=== PATIENT | male | born 1945 | race Caucasian/White ===

== ENCOUNTER → 2021-06-20 | Outpatient (CLI) | payer MEDICARE ==
[~2021-06-20] MED LIST: CATHETER FLUSH 10 ML SYR IV PRN; REGADENOSON 0.4 MG/5 ML SYR (LEXISCAN) IV ONE
--- NOTE | 2021-06-20 14:51 | NUCLEAR STRESS TEST ---
REGADENOSON NUCLEAR STRESS Date of procedure: 06/20/2021. Primary care provider: Unknown Admitting physician: Homar Roberts Jr., MD. INDICATION: Persistent atrial fibrillation BASELINE ELECTROCARDIOGRAM: Atrial fibrillation with a rapid ventricular rate at 112 bpm with isolated premature ventricular complexes versus aberrancy and nonspecific ST-T wave changes. STRESS TEST PROCEDURE: This was initially intended to be a treadmill nuclear stress test but due to resting tachycardia, this was changed over to a regadenoson nuclear stress test. The patient was administered 0.4 mg of intravenous Regadenoson. The resting heart rate was 112 bpm and the peak heart rate was 142 bpm. The resting blood pressure was 197/136 mmHg and the minimum blood pressure was 171/96 mmHg. This represents a normal heart rate and a normal blood pressure response to Regadenoson with resting tachycardia and hypertension. The test was stopped due to the protocol. There was no chest discomfort during the test. The patient was in atrial fibrillation with isolated premature ventricular complexes versus aberrancy throughout the test. There were no significant stress induced electrocardiogram changes. NUCLEAR PROCEDURE: The patient was administered 10.9 mCi of intravenous technetium 99m Tetrofosmin at rest for the rest images. The patient was subsequently administered 29.5 mCi of intravenous technetium 99m Tetrofosmin at peak stress for the stress images. Following an appropriate wait after each injection, imaging was obtained. The images were subsequently processed and reformatted in the usual views. Gated imaging was obtained. The image quality was adequate but with some gastrointestinal attenuation artifact. CT attenuation correction was used as a adjunct to standard imaging. Both the corrected and uncorrected images were reviewed for interpretation. NUCLEAR RESULTS: There was normal myocardial perfusion in all segments without evidence of infarction or ischemia. There was normal left ventricular chamber size with an end-diastolic volume of 65 mL and an end-systolic volume of 16 mL. There was no evidence of transient ischemic dilatation. The TID ratio was 1.07. There was normal wall motion in all segments with a calculated ejection fraction of 75%. IMPRESSION: 1. Normal heart rate and blood pressure response to regadenoson with resting tachycardia and hypertension. 2. There was no chest discomfort or electrocardiogram changes during the test. 3. The patient was in atrial fibrillation with isolated premature ventricular complexes versus aberrancy for the duration of the test. 4. There was normal myocardial perfusion in all segments without evidence of infarction or ischemia. 5. There was normal wall motion in all segments with a calculated ejection fraction of 75%. Certain portions of this document may have been dictated utilizing voice recognition technology. Inherent to this technology, typographical and grammatical errors may exist. As much as I am diligent to identify and correct these mistakes, some errors may remain in the document. HOMAR ROBERTS JR, MD Jun 20, 2021 14:51
--- NOTE | 2021-06-20 14:55 | Diagnostic Imaging Report ---
INDICATION: Coronary artery disease. TIME OF EXAM: 2:10 p.m. COMPARISON: No prior studies are available for comparison. FINDINGS: The heart size is normal. There is a moderate left and dnyap-nt-inyopalp right pleural effusion. There is some compressive atelectasis in both bases. Mid and upper lung crawford are clear. There is no pneumothorax. Pulmonary vascularity is unremarkable. IMPRESSION: Bilateral effusions, left greater, with bibasilar subsegmental atelectasis. Dictated by: Dictated on workstation # [id number]
== END ==
LOC: CARD 10:00
PROVIDERS: ATTEND Internal Medicine Cardiovascular Disease
DX: J90 Pleural effusion, not elsewhere classified (principal); I25.10 Atherosclerotic heart disease of native coronary artery without angina pectoris; I48.19 Other persistent atrial fibrillation
CPT/HCPCS: 71046; 78452; 93017; 93306; A9502

== ENCOUNTER → 2021-06-27 | Day surgery (SDC) | payer MEDICARE ==
[~2021-06-27] VITALS: Ht 186 cm; Wt 96.0 kg
[~2021-06-27] MED LIST changes: +DILT120T3 PO; +FURO40TA4 PO; +NS IV 1000 ML 1,000 ML IV ONE; +NS IV 1000 ML 1,000 ML ONE; -REGADENOSON 0.4 MG/5 ML SYR (LEXISCAN) IV ONE; +RIVA20TA PO
[2021-06-27 09:37] VITALS: BP 165/81
== END | disposition home or self-care (01) ==
LOC: CATH 10:00
PROVIDERS: ATTEND Internal Medicine Cardiovascular Disease
DX: I48.19 Other persistent atrial fibrillation (principal); Z53.9 Procedure and treatment not carried out, unspecified reason

== ENCOUNTER → 2021-07-18 | Day surgery (SDC) | payer MEDICARE ==
[2021-07-18] VITALS (8 sets, daily range): BP systolic 106–130; BP diastolic 58–80
[~2021-07-18] VITALS: Ht 187.6 cm; Wt 96.4 kg
[~2021-07-18] MED LIST changes: +DILT240C86 PO; +proPOfol 200 MG/20 ML (DIPRIVAN) VIAL IV ONE
--- NOTE | 2021-07-18 11:52 | Cardiac Procedure Note ---
Cardiology Procedures Date of Procedure 07/18/2021 DIRECT-CURRENT CARDIOVERSION INDICATION: Other persistent atrial fibrillation. PROCEDURE: After informed consent and in the fasting state, deep sedation was provided by the anesthesia department. I subsequently performed direct-current cardioversion with synchronized, biphasic shocks in a stepwise fashion starting with 50 J and then 100 J followed by 150 J. After the first 2 shocks the patient did convert to sinus rhythm but within a short while, converted back to atrial fibrillation. On the third shock, the patient converted to sinus rhythm and seemed to maintain sinus rhythm. IMPRESSION: 1. Status post successful direct-current cardioversion with a final biphasic energy level of 150 J with conversion of atrial fibrillation to sinus rhythm. Certain portions of this document may have been dictated utilizing voice recognition technology. Inherent to this technology, typographical and grammatical errors may exist. As much as I am diligent to identify and correct these mistakes, some errors may remain in the document. JUAN ANTONIO HILL JR, MD Jul 18, 2021 11:52
--- NOTE | 2021-07-18 13:03 | Anesthesia-General Post-Op ---
MAC Patient Condition Mental Status/LOC: Same as Preop Cardiovascular: Satisfactory Nausea/Vomiting: Absent Respiratory: Satisfactory Pain: Controlled Complications: Absent Post Op Complications Complications None Follow Up Care/Instructions Patient Instructions None needed. Anesthesiology Discharge Order Discharge Order Patient is doing well, no complaints, stable vital signs, no apparent adverse anesthesia problems. No complications reported per nursing. ANTONIO GALVAN CRNA Jul 18, 2021 13:03
== END ==
LOC: CATH 10:00
PROVIDERS: ATTEND Internal Medicine Cardiovascular Disease
DX: I48.19 Other persistent atrial fibrillation (principal); E78.5 Hyperlipidemia, unspecified; I34.0 Nonrheumatic mitral (valve) insufficiency; I11.0 Hypertensive heart disease with heart failure; I50.32 Chronic diastolic (congestive) heart failure; J90 Pleural effusion, not elsewhere classified; R03.0 Elevated blood-pressure reading, without diagnosis of hypertension; E78.2 Mixed hyperlipidemia; E66.3 Overweight; Z87.891 Personal history of nicotine dependence; Z79.899 Other long term (current) drug therapy; Z83.3 Family history of diabetes mellitus; Z80.9 Family history of malignant neoplasm, unspecified
CPT/HCPCS: 92960; 93005

== ENCOUNTER 2021-08-19 16:27 | Inpatient (IN) | payer MEDICARE ==
[~2021-08-19] VITALS: Ht 185.4 cm; Wt 80.6 kg
[~2021-08-19 16:27] MED LIST changes: -CATHETER FLUSH 10 ML SYR IV PRN; -NS IV 1000 ML 1,000 ML IV ONE; -NS IV 1000 ML 1,000 ML ONE; -proPOfol 200 MG/20 ML (DIPRIVAN) VIAL IV ONE
[2021-08-19] MEDS ORDERED: LOPERAMIDE 2 MG (IMODIUM) TABLET PO PRN (17:45)
[2021-08-19] MEDS ORDERED: morphine INJ 10 MG/ML 1ML (SYR OR VIAL) IVP PRN (17:45)
[2021-08-19] MEDS ORDERED: MELATONIN 3 MG TABLET PO PRN (17:45)
[2021-08-19] MEDS ORDERED: diphenhydrAMINE 25 MG TAB (BENADRYL) PO PRN (17:45)
[2021-08-19] MEDS ORDERED: DOCUSATE SODIUM 100 MG (COLACE) CAP PO PRN (17:45)
[2021-08-19] MEDS ORDERED: ALPRAZolam 0.25 MG (XANAX) TAB PO PRN (17:45)
[2021-08-19] MEDS ORDERED: ACETAMINOPHEN 500 MG TAB (TYLENOL) PO PRN (17:45)
[2021-08-19] MEDS ORDERED: CALCIUM CARBONATE 500 MG (TUMS) TAB.CHEW PO PRN (17:45)
[2021-08-19] MEDS ORDERED: ONDANSETRON 4 MG/2 ML (SDV) Z0FRAN IVP PRN (17:45)
[2021-08-19] MEDS ORDERED: ACETAMINOPHEN 325 MG TABLET PO PRN (18:45)
[2021-08-19] MEDS ORDERED: RT-ALBUTEROL/IPRATROPIUM 3 ML (DUONEB) VIAL INH PRN (19:15)
--- NOTE | 2021-08-19 19:33 | Tele-ICU Consult ---
History of Present Illness History of Present Illness Date Seen by Provider: Aug 19, 2021 Time Seen by Provider: 19:28 Date of Admission 76 y old man presented as a direct admission for multiple complains.- pt went to ED with SOB/ stopped taking lasix. At [facility] ED he received lasix. He was found to have A fib with RVR. As per RN he has a dry gangrene and bite on the elbow. Allergies and Home Medications Allergies Coded Allergies: No Allergy Information Available (Unverified , 06/20/21) Home Medications Diltiazem HCl 240 Mg Cap.er.24h, 240 MG PO DAILY, (Reported) Furosemide 40 Mg Tablet, 40 MG PO DAILY, (Reported) Rivaroxaban 20 Mg Tablet, 20 MG PO DAILY, (Reported) Past Medical/Social/Family Hx Patient Social History Tobacco Use?: No Use of E-Cig and/or Vaping dev: No Substance use?: No Alcohol Use?: No Pt stated abuse/neglect: No Immunizations Up To Date Influenza Vaccine Up-to-Date: No; Not Current Current Status Advance Directives: No Communicates: Verbally Primary Language: [place] Preferred Spoken Language: [place] Is interpretation needed?: No Sensory deficits: Hearing impairment Implanted or Applied Medical D: None Past Medical History A fib Review of Systems Constitutional: see HPI Focused Exam Height, Weight, BMI Height: '" Weight: lbs. oz. kg; 23.44 BMI Method: Exam Exam Patient acknowledged, consented, and participated in this virtual visit which was conducted using real time audio/video Vital Signs Date Time Temp Pulse Resp B/P (MAP) Pulse Ox O2 Delivery O2 Flow Rate FiO2 08/19/21 19:10 138 96 08/19/21 18:31 138 08/19/21 18:30 96 Nasal Cannula 3.00 08/19/21 18:15 36.3 135 112/97 100 Nasal Cannula 3.00 Height & Weight Height: '" Weight: lbs. oz. kg; 23.44 BMI Method: General Appearance: No Apparent Distress Capillary Refill: Less Than 3 Seconds Assessment/Plan Assessment/Plan 1. A fib with rvr -unclear what precipitated the clinical circumstance - ro vte start with duple xof lower ext -tsh/ trop / ekg 2. sepsis -lactic acid, procal, pancultures -empiric abx -wpund care/ surgery per pcp dw bed side rn pt was visualized KATELYN MURGUIA MD Aug 19, 2021 19:33
[2021-08-19] MEDS ORDERED: VANCOMYCIN INJECTION 1,000 MG in NS (IVPB) 250 ML IV SCH (19:45)
--- NOTE | 2021-08-19 19:45 | Progress Note ---
Progress Note 76yoWM clinic patient of [facility] Dr Freed in [place] and Dr Roberts [facility] Cardiology who has a h/o CHF and AF who presents to the [place] ER with dyspnea. AF RVR dx and Dr Roberts notified of consult. ICU bed available and orders placed for AECHF and volume overload. To note PRECISION FILER HAND noted right foot with dry gangrene so EICU placed on abx to cover for sepsis from foot. [facility] ER HPI: 76-year-old male who presents to the emergency department with chief complaint of worsening shortness of breath. Patient states that he has been dealing with shortness of breath for several months. States sometime early this fall he began to have some issues with his eyes and was needing some eye surgery however they determined his heart was irregular him wanting to see his jig hand. He does see Dr. Roberts in [place] and patient states that he was diagnosed with A. fib like 20+ years ago. Patient states that he is on Eliquis for blood thinners for this. Patient states however he has been short of breath since March or May. He has seen his jig hand about 3 weeks ago and talk to him about it but he did no further evaluation. He was supposed to see his PCP today when they arrived to the office they said that his appointment had been canceled. So they came over here for further evaluation. Patient states that he also has not had an appetite for months. Patient states that he has a random cough but has not noticed any kind chronic cough with the shortness of breath. He states that he has a lot of postnasal drainage and that usually when he coughs up that happens little. Denies any fever chills nausea vomiting abdominal pain. Denies any chest pain at this time but states when he is up doing stuff that sometimes he gets more short of breath and that this causes him some chest discomfort. Patient also admits that they have been working on the bathroom at his house and so not really able to use and so has not been taking his lasix x 2 weeks. Final diagnoses: [I50.9] Acute on chronic heart failure, unspecified heart failure type (Primary) [N17.9] Acute renal failure, unspecified acute renal failure type [I48.11] Longstanding persistent atrial fibrillation [R74.8] Elevated alkaline phosphatase level [R63.4] Abnormal weight loss VLAD CHAMBERS DO Aug 19, 2021 19:45
--- NOTE | 2021-08-19 20:12 | Diagnostic Imaging Report ---
INDICATION: Pneumonia. COMPARISON: 06/20/2021. FINDINGS: The heart size is normal. There is bibasilar atelectasis and/or pneumonitis. There are small bilateral pleural effusions. There is mild venous congestion. There is no pneumothorax. The mediastinum is unremarkable. IMPRESSION: 1. Bibasilar atelectasis and/or pneumonitis and bilateral pleural effusions, left greater than right. 2. Mild central pulmonary venous congestion. Dictated by: Dictated on workstation # [id number]
[2021-08-19 20:59] LABS: BASOPHILS % (AUTO) 0 % (0-10); EOSINOPHILS % (AUTO) 0 % (0-10); HEMATOCRIT 44 % (40-54); HEMOGLOBIN 13.4 g/dL (13.3-17.7); LYMPHOCYTES # (AUTO) 0.9 10^3/uL (1.0-4.0); LYMPHOCYTES % (AUTO) 6 % (12-44); MEAN CORPUSCULAR HEMOGLOBIN 26 pg (25-34); MEAN CORPUSCULAR HGB CONC 31 g/dL (32-36); MEAN CORPUSCULAR VOLUME 85 fL (80-99); MEAN PLATELET VOLUME 9.8 fL (9.0-12.2); MONOCYTES % (AUTO) 6 % (0-12); NEUTROPHILS # (AUTO) 13.4 10^3/uL (1.8-7.8); NEUTROPHILS % (AUTO) 87 % (42-75); PLATELET COUNT 174 10^3/uL (130-400); WHITE BLOOD COUNT 15.3 10^3/uL (4.3-11.0)
[2021-08-19] MEDS ORDERED: ESMOLOL DRIP PREMIX 250 ML IV ONE (21:01)
[2021-08-19 21:13] LABS: LYMPHOCYTES % (MANUAL) 1 %; MONOCYTES % (MANUAL) 4 %; NEUTROPHILS % (MANUAL) 95 %; RBC MORPH NORMAL
[2021-08-19 21:14] LABS: ALBUMIN 2.8 GM/DL (3.2-4.5); POTASSIUM 3.4 MMOL/L (3.6-5.0)
[2021-08-19 21:15] LABS: CALCIUM 8.6 MG/DL (8.5-10.1)
[2021-08-19 21:16] LABS: TOTAL PROTEIN 6.8 GM/DL (6.4-8.2)
[2021-08-19 21:18] LABS: BILIRUBIN,TOTAL 1.9 MG/DL (0.1-1.0)
[2021-08-19 21:20] LABS: CREATININE SERUM 1.31 MG/DL (0.60-1.30)
[2021-08-19] MEDS: SENNA W/DOCUSATE (SENOKOT S) TABLET PO SCH (21:31)
[2021-08-19 21:41] LABS: BILIRUBIN,URINE NEGATIVE (NEGATIVE); CLARITY,URINE CLEAR; COLOR,URINE YELLOW; GLUCOSE, URINE (UA) NEGATIVE (NEGATIVE); KETONES,URINE NEGATIVE (NEGATIVE); LEUKOCYTE ESTERASE ,URINE NEGATIVE (NEGATIVE); NITRITE,URINE NEGATIVE (NEGATIVE); PROTEIN,URINE NEGATIVE (NEGATIVE)
[2021-08-19 21:51] LABS: BACTERIA,URINE NEGATIVE /HPF; SQUAMOUS EPITHELIAL CELL,UR 0-2 /HPF; WBC,URINE RARE /HPF
[2021-08-19 21:52] LABS: HYALINE CASTS, URINE 0-2 /LPF
[2021-08-19] MEDS: CEFEPIME INJECTION 1,000 MG in NS (IVPB) 50 ML IV SCH (21:55)
[2021-08-19] MEDS ORDERED: LACTATED RINGERS 1,000 ML IV SCH ×2 (22:00)
[2021-08-19] MEDS ORDERED: VANCOMYCIN INJECTION 1,500 MG in NS IV 500 ML 500 ML IV ONE (22:00)
[2021-08-19] MEDS ORDERED: LACTATED RINGERS 2,000 ML IV ONE (22:16)
[2021-08-19] MEDS: ESMOLOL DRIP PREMIX 250 ML IV SCH (22:25)
[2021-08-19] MEDS: HYDROcodone/APAP 5 MG/325 MG (LORTAB) TAB PO PRN (22:29)
--- NOTE | 2021-08-20 00:35 | CONSULTATION REPORT ---
DATE OF SERVICE: 08/19/2021 ATTENDING PRIMARY CARE PHYSICIAN Jolanta Ruggiero DO HISTORY OF PRESENT ILLNESS: The patient is a 76-year-old male who presented to the Emergency Department with shortness of breath; however, stated that he had stopped taking his normal Lasix. He presented to the Emergency Department in [place], [place] and was found to be in atrial fibrillation with rapid ventricular response and was admitted to [facility]. Upon examination, he was found to have necrotic first right toe as well as ischemic changes throughout the remainder of the toes 2 through 5. He does have a history of hypertension and appears to have a component of peripheral vascular disease as well. PAST MEDICAL HISTORY: Hypertension, congestive heart failure, coronary artery disease, peripheral vascular disease. PAST SURGICAL HISTORY: Unknown. ALLERGIES: NO KNOWN DRUG ALLERGIES. MEDICATIONS: Diltiazem 240 mg daily, furosemide 40 mg daily, and rivaroxaban 20 mg daily. SOCIAL HISTORY: Negative smoke, negative alcohol. FAMILY HISTORY: Noncontributory. VITAL SIGNS: Afebrile. Blood pressure 118/96, pulse 138, pulse ox 100% on 3 liters nasal cannula. REVIEW OF SYSTEMS: This is an elderly appearing male, currently in no acute distress. He is not experiencing any shortness of breath at rest. No cough or sputum production. No chest pain, palpitations, diaphoresis. No nausea or vomiting, no diarrhea or constipation. No fever, chills, no recent inadvertent weight loss. All other review of systems negative. PHYSICAL EXAMINATION: CHEST: Few scattered rales bilaterally. HEART: Regular, no murmurs. EXTREMITIES: +1/3 bilateral lower extremity edema, negative Homans sign. HEENT: No scleral icterus. NECK: No cervical lymphadenopathy. ABDOMEN: Soft, nontender, nondistended. SKIN: First along the right great toe, the skin is black and necrotic, does not appear to be viable. There also does appear to be arterial ischemic changes within digits 2 through 5 as well. LABORATORY DATA: WBC 15.3, hemoglobin 13.4, hematocrit 44, and platelets 174. ASSESSMENT AND PLAN: A 76-year-old male with exacerbation of congestive heart failure as well as atrial fibrillation and rapid ventricular response. He has been admitted to the ICU where he has been medically managed as well as with cardiac consultation. It appears that he does likely have a component of peripheral vascular disease; however, we are unsure if this is a large vessel disease versus medium or small vessel disease causing the ischemic changes of his toes. We will get pulse volume ultrasound recordings of the lower extremities to evaluate his large vessel arterial perfusion. If adequate perfusion was identified distally, he will at least need a right first toe amputation versus a transmetatarsal amputation. If further demarcation occurs within the toes 2 through 5, he may need a transmetatarsal amputation throughout all 5 digits. For now, we will start him on broad spectrum antibiotics and allow treatment of his current medical problems. Job ID: [id number] DocumentID: [id number] Dictated Date: 08/19/2021 21:08:17 Senior Licensing Manager Date: 08/19/2021 21:32:26 Dictated By: AGUSTÍN DUQUE MD
[2021-08-20] MEDS: dilTIAZem DRIP PRE-MIX 125 ML IV SCH ×2 (00:51→19:40)
[2021-08-20] MEDS: HYDROcodone/APAP 5 MG/325 MG (LORTAB) TAB PO PRN ×2 (02:27→06:18)
[2021-08-20] MEDS: CEFEPIME INJECTION 1,000 MG in NS (IVPB) 50 ML IV SCH ×4 (04:26→21:41)
[2021-08-20 04:27] LABS: BASOPHILS % (AUTO) 0 % (0-10); EOSINOPHILS # (AUTO) 0.1 10^3/uL (0.0-0.3); EOSINOPHILS % (AUTO) 1 % (0-10); HEMATOCRIT 39 % (40-54); HEMOGLOBIN 11.9 g/dL (13.3-17.7); LYMPHOCYTES # (AUTO) 1.1 10^3/uL (1.0-4.0); LYMPHOCYTES % (AUTO) 7 % (12-44); MEAN CORPUSCULAR HEMOGLOBIN 26 pg (25-34); MEAN CORPUSCULAR HGB CONC 31 g/dL (32-36); MEAN CORPUSCULAR VOLUME 86 fL (80-99); MEAN PLATELET VOLUME 10.1 fL (9.0-12.2); MONOCYTES # (AUTO) 1.1 10^3/uL (0.0-1.0); MONOCYTES % (AUTO) 7 % (0-12); NEUTROPHILS # (AUTO) 13.4 10^3/uL (1.8-7.8); NEUTROPHILS % (AUTO) 85 % (42-75); PLATELET COUNT 157 10^3/uL (130-400); WHITE BLOOD COUNT 15.8 10^3/uL (4.3-11.0)
[2021-08-20 04:49] LABS: CREATININE SERUM 1.19 MG/DL (0.60-1.30); PHOSPHORUS 3.3 MG/DL (2.3-4.7)
[2021-08-20 04:51] LABS: MAGNESIUM 1.9 MG/DL (1.6-2.4)
[2021-08-20] MEDS: MAGNESIUM 1 GM/100 ML IVPB 100 ML IV SCH (05:19)
[2021-08-20] MEDS: KCL 20 MEQ TAB (K-DUR) PO SCH (05:19)
[2021-08-20] MEDS: POTASSIUM CL 10MEQ/50ML IVPB 50 ML IV SCH ×5 (05:19→09:36)
[2021-08-20] MEDS ORDERED: LACTATED RINGERS 1,000 ML IV SCH (05:30)
[2021-08-20] MEDS ORDERED: LACTATED RINGERS 1,000 ML IV ONE (05:33)
[2021-08-20] MEDS ORDERED: D5 LR IV SOLUTION 1,000 ML IV ONE (05:33)
--- NOTE | 2021-08-20 06:57 | Diagnostic Imaging Report ---
Indication: Abnormal skin coloration, black toe, osteomyelitis, fracture. Comparison: None Findings: 2 views of the right foot demonstrate osseous destruction of the distal phalanx of the 4th digit as well as cortical irregularity in this involving the distal phalanx of the 1st digit. These findings are concerning for osteomyelitis. There is no fracture, underlying radiopaque foreign body or soft tissue gas. Impression: 1. Suspect osteomyelitis of the distal phalanx of the 1st and 4th digits. 2. Not mentioned above, questionable osteomyelitis is of the tip of the distal phalanx 5th digit. Dictated by: Dictated on workstation # [id number]
[2021-08-20] MEDS: ESMOLOL DRIP PREMIX 250 ML IV SCH ×2 (07:09→17:31)
[2021-08-20] MEDS: FUROSEMIDE 40 MG/4 ML INJ (LASIX) IVP SCH ×2 (07:20→17:30)
--- NOTE | 2021-08-20 08:16 | Consultation-Cardiology ---
HPI-Cardiology Cardiology Consultation: Date of Consultation 08/20/21 Date of Admission 08/19/2021 Attending Physician Jolanta Ruggiero DO Admitting Physician Arelis Ruggiero DO Consulting Physician JUAN ANTONIO HILL JR, MD HPI: Time Seen by a Provider: 08:12 Chief Complaint: Reason for consultation: Atrial fibrillation and heart failure. I had the pleasure of seeing Clay in the intensive care unit at [facility] in [place], [place] this morning. He has a history of persistent atrial fibrillation, chronic heart failure with preserved ejection fraction, hypertension, mixed hyperlipidemia, pulmonary hypertension, mitral regurgitation, and hyperlipidemia. I have been working with the patient to get him into sinus rhythm. He underwent a cardioversion in July 2021 but 1 week later he was back in atrial fibrillation. I have been planning to admit the patient to the hospital to initiate therapy with sotalol. For the past couple of weeks he has been having intermittent swelling of his right arm. When the swelling gets bad, his skin will be tight and his arm will ache. He denies any swelling of his left arm. He did not seek medical attention. His main complaint has been weakness, fatigue and shortness of breath. He has fallen at least a few times at home due to severe weakness. One time he fell in the shower and hit his head. Last Thursday he was trying to sit down in a chair and due to weakness he ended up falling on the floor. At that time he had twisted his right ankle. It took him approximately 2-1/2 hours to get himself up off the floor because he was so weak. He denies any syncope. He states that his dyspnea on exertion has been unchanged. Yesterday the patient noticed that his right big toe became very dark in color and painful. He was supposed to have an appointment with his primary care provider but when he went to the office for the appointment, somehow the appointment had been canceled. His primary provider suggested he go to his local emergency room for further evaluation. In the outside emergency room he was found to be in atrial fibrillation with rapid ventricular rate and also was felt to be in some degree of heart failure. His right big toe was also noted to be necrotic. He was subsequently transferred to our facility for further evaluation. He has had some mild bilateral lower extremity edema. He denies paroxysmal nocturnal dyspnea, orthopnea, palpitations, or syncope. Certain portions of this document may have been dictated utilizing voice recognition technology. Inherent to this technology, typographical and grammatical errors may exist. As much as I am diligent to identify and correct these mistakes, some errors may remain in the document. Review of Systems-Cardiology Review of Systems Other comments Review of 10 organ systems is as per the history of present illness, otherwise negative. TPM-[id number]-Sbvkca Hx Patient Social History Have you traveled recently?: No Alcohol Use?: No Pt feels they are or have been: No Past Medical History PMH As described under Assessment. Family Medical History Family Medical History: The patient does not know of any family history of premature coronary artery disease in first-degree relatives. Allergies and Home Medications Allergies Coded Allergies: No Allergy Information Available (Unverified , 06/20/21) Patient Home Medication List Home Medication List Reviewed: Yes Diltiazem HCl (Cardizem Cd) 240 Mg Cap.er.24h, 240 MG PO DAILY, (Reported) Entered as Reported by: LAURENCE MANUEL on 07/18/21 1127 Furosemide (Furosemide) 40 Mg Tablet, 40 MG PO DAILY, (Reported) Entered as Reported by: CINTHYA CAVAZOS on 06/27/21 09 Rivaroxaban (Xarelto) 20 Mg Tablet, 20 MG PO DAILY, (Reported) Entered as Reported by: CINTHYA CAVAZOS on 06/27/21943 Exam Vital Signs Vital Signs Date Time Temp Pulse Resp B/P (MAP) Pulse Ox O2 Delivery O2 Flow Rate FiO2 08/20/21 09:36 114 08/20/21 08:41 99 Nasal Cannula 3.00 08/20/21 07:45 35.9 08/20/21 07:20 100 08/20/21 06:23 106/76 08/20/21 04:00 18 Physical Exam General: Alert. No acute distress. Well nourished and appears stated age. Eye: Extraocular movements are intact. Conjunctivae are clear. There are no radha thelasma. HENT: Normocephalic. Atraumatic. Carotid pulsations 2/2 without bruits. Neck: Jugular venous pressure does not appear elevated. No thyromegaly appreciated. Respiratory: Lungs are clear to auscultation. Respirations are non-labored. Breath sounds are equal. Symmetrical chest wall expansion. Cardiovascular: Tachycardia with irregular rhythm. No murmur. No gallop. Point of maximal impulse is not appear displaced. Lower extremity pulses are present by Doppler. 1+ bilateral pretibial edema. Right arm is diffusely swollen. Gastrointestinal: Soft. Normal bowel sounds. Skin: Skin turgor is normal. There is no pallor. Right big toe is gangrenous in appearance. Musculoskeletal: No kyphosis or scoliosis appreciated. Neurologic: Alert and oriented to person, place, time. Cranial nerves 3-12 appear grossly intact. The patient has good motor tone strength in the upper and lower extremities bilaterally. Psychiatric: Cooperative. Appropriate mood & affect. Labs Laboratory Tests Test 08/19/21 20:40 08/19/21 21:10 08/20/21 03:15 08/20/21 05:29 Range/Units White Blood Count 15.3 H 15.8 H 4.3-11.0 10^3/uL Red Blood Count 5.10 4.53 4.30-5.52 10^6/uL Hemoglobin 13.4 11.9 L 13.3-17.7 g/dL Hematocrit 44 39 L 40-54 % Mean Corpuscular Volume 85 86 80-99 fL Mean Corpuscular Hemoglobin 26 26 25-34 pg Mean Corpuscular Hemoglobin Concent 31 L 31 L 32-36 g/dL Red Cell Distribution Width 14.7 H 14.8 H 10.0-14.5 % Platelet Count 174 157 130-400 10^3/uL Mean Platelet Volume 9.8 10.1 9.0-12.2 fL Immature Granulocyte % (Auto) 1 1 % Neutrophils (%) (Auto) 87 H 85 H 42-75 % Lymphocytes (%) (Auto) 6 L 7 L 12-44 % Monocytes (%) (Auto) 6 7 0-12 % Eosinophils (%) (Auto) 0 1 0-10 % Basophils (%) (Auto) 0 0 0-10 % Neutrophils # (Auto) 13.4 H 13.4 H 1.8-7.8 10^3/uL Lymphocytes # (Auto) 0.9 L 1.1 1.0-4.0 10^3/uL Monocytes # (Auto) 1.0 1.1 H 0.0-1.0 10^3/uL Eosinophils # (Auto) 0.0 0.1 0.0-0.3 10^3/uL Basophils # (Auto) 0.0 0.0 0.0-0.1 10^3/uL Immature Granulocyte # (Auto) 0.1 0.1 0.0-0.1 10^3/uL Neutrophils % (Manual) 95 % Lymphocytes % (Manual) 1 % Monocytes % (Manual) 4 % Blood Morphology Comment NORMAL Sodium Level 143 142 135-145 MMOL/L Potassium Level 3.4 L 3.0 L 3.6-5.0 MMOL/L Chloride Level 93 L 96 L 98-107 MMOL/L Carbon Dioxide Level 31 30 21-32 MMOL/L Anion Gap 19 H 16 H 5-14 MMOL/L Blood Urea Nitrogen 28 H 26 H 7-18 MG/DL Creatinine 1.31 H 1.19 0.60-1.30 MG/DL Estimat Glomerular Filtration Rate 53 60 BUN/Creatinine Ratio 21 22 Glucose Level 96 71 70-105 MG/DL Lactic Acid Level 2.30 *H 2.34 *H 1.55 0.50-2.00 MMOL/L Calcium Level 8.6 8.0 L 8.5-10.1 MG/DL Corrected Calcium 9.6 8.5-10.1 MG/DL Total Bilirubin 1.9 H 0.1-1.0 MG/DL Aspartate Amino Transf (AST/SGOT) 31 5-34 U/L Alanine Aminotransferase (ALT/SGPT) 14 0-55 U/L Alkaline Phosphatase 223 H 40-136 U/L Troponin I 0.041 H <0.028 NG/ML Total Protein 6.8 6.4-8.2 GM/DL Albumin 2.8 L 3.2-4.5 GM/DL Procalcitonin 2.19 H <0.10 NG/ML Thyroid Stimulating Hormone (TSH) 2.36 0.35-4.94 UIU/ML Urine Color YELLOW Urine Clarity CLEAR Urine pH 6.0 5-9 Urine Specific [place] 1.010 L 1.016-1.022 Urine Protein NEGATIVE NEGATIVE Urine Glucose (UA) NEGATIVE NEGATIVE Urine Ketones NEGATIVE NEGATIVE Urine Nitrite NEGATIVE NEGATIVE Urine Bilirubin NEGATIVE NEGATIVE Urine Urobilinogen 1.0 < = 1.0 MG/DL Urine Leukocyte Esterase NEGATIVE NEGATIVE Urine RBC (Auto) NEGATIVE NEGATIVE Urine RBC NONE /HPF Urine WBC RARE /HPF Urine Squamous Epithelial Cells 0-2 /HPF Urine Renal Epithelial Cells NONE /HPF Urine Crystals NONE /LPF Urine Bacteria NEGATIVE /HPF Urine Casts PRESENT /LPF Urine Hyaline Casts 0-2 H /LPF Urine Mucus NEGATIVE /LPF Urine Culture Indicated NO Phosphorus Level 3.3 2.3-4.7 MG/DL Magnesium Level 1.9 1.6-2.4 MG/DL Radiology ECHOCARDIOGRAM (08/20/2021): SUMMARY: 1. This is a technically difficult study due to poor image quality in the apical views. 2. Left ventricle: The cavity size is normal. Wall thickness is normal. Systolic function is normal. The estimated ejection fraction is 65-70%. There is flattening of the intraventricular septum consistent with right ventricular pressure and/or volume overload. Features are consistent with a pseudonormal left ventricular filling pattern, with concomitant abnormal relaxation and increased filling pressure (grade 2 diastolic dysfunction). 3. Right ventricle: The cavity size is mildly increased measuring 3.5 cm midcavi ty. Systolic function is normal. TAPSE 2.2 cm. 4. Left atrium: The atrium is moderately to severely dilated with a volume index ranging from 40-58 mL/m. 5. Right atrium: The atrium is moderately dilated with an area of 23 cm. 6. Aortic valve: There is mild aortic valve sclerosis. 7. Tricuspid valve: There is moderate regurgitation. 8. Pericardium, extracardiac: A small pericardial effusion is identified anterior to the heart. There is a moderate-sized right pleural effusion and a moderate-sized left pleural effusion. 9. Pulmonary arteries: The estimated pulmonary artery systolic pressure is 71 mmHg assuming a right atrial pressure of 5 mmHg. ELECTROCARDIOGRAM (07/24/2021): Atrial fibrillation with a ventricular rate of 93 bpm with possible old anteroseptal and inferior myocardial infarction's with nonspecific ST-T wave changes. DIRECT-CURRENT CARDIOVERSION (07/18/2021): 1. Status post successful direct-current cardioversion with a final biphasic energy level of 150 J with conversion of atrial fibrillation to sinus rhythm. 2 VIEW CHEST X-RAY (06/20/2021): 1. Bilateral effusions, left greater, with bibasilar subsegmental atelectasis. REGADENOSON NUCLEAR STRESS TEST (06/20/2021): 1. Normal heart rate and blood pressure response to regadenoson with resting tachycardia and hypertension. 2. There was no chest discomfort or electrocardiogram changes during the test. 3. The patient was in atrial fibrillation with isolated premature ventricular complexes versus aberrancy for the duration of the test. 4. There was normal myocardial perfusion in all segments without evidence of infarction or ischemia. 5. There was normal wall motion in all segments with a calculated ejection fraction of 75%. ECHOCARDIOGRAM (06/20/2021): 1. The patient was in atrial fibrillation with a rapid ventricular rate for the duration of this study. 2. The left ventricular cavity size is normal. There is mild concentric hypertrophy. Systolic function is hyperdynamic. The estimated ejection fraction is 70-75%. There are no regional wall motion abnormalities identified. The left ventricular diastolic function is indeterminate due to atrial fibrillation. 3. The left atrium is moderately to severely dilated with a volume index ragning from 42-52 mL/m. 4. The right atrium is mildly dilated with an area of 21 cm. 5. There is mild mitral regurgitation. 6. There is mild aortic valve sclerosis. 7. There is moderate-severe tricuspid regurgitation. 8. There is a large left pleural effusion. 9. The estimated pulmonary artery systolic pressure is 99 mmHg assuming a right atrial pressure of 15 mmHg. 10. The vessel is dilated. The respirophasic diameter changes are blunted (less than 50%). LABS (06/01/2021): Total cholesterol 128. HDL 35. Triglycerides 83. LDL 76. Glucose 121. Creatinine 1.01. GFR 73. Sodium 144. Potassium 3.5. Liver function tests normal. Hemoglobin 13. Platelets 338,000. TSH 2.39. ELECTROCARDIOGRAM (05/21/2021): Atrial fibrillation with a ventricular rate of 124 bpm with occasional premature ventricular complexes versus aberrancy and possible old anteroseptal myocardial infarction. ECG Impression ECG Comment Electrocardiogram obtained on 08/19/2021 shows atrial fibrillation with ventricular rate of 118 bpm with low voltage in the limb leads, poor R wave progression, and diffuse, nonspecific ST-T wave changes. QTc approximately 460 ms. Diagnosis/Problems Diagnosis/Problems (1) Acute on chronic heart failure with preserved ejection fraction (HFpEF) Assessment & Plan: He probably has some decompensation of his heart failure. He is now on intravenous Lasix twice a day which I would continue for at least the next 24-48 hours. (2) Persistent atrial fibrillation Assessment & Plan: He remains in atrial fibrillation. He may have missed 1 dose of Xarelto but otherwise states he has been compliant with this medication. He has persistent tachycardia which may be contributing to his decompensated heart failure. I am also concerned with his gangrenous toe on the right foot that this could have been an embolic event. I will place the patient on therapeutic dose of enoxaparin while we await further treatment decisions regarding his right big toe. I may also consider a transesophageal echocardiogram later today to exclude atrial thrombus. I will plan to start the patient on sotalol but if he has an atrial thrombus, we will need to hold off. (3) Deep vein thrombosis, upper right extremity Assessment & Plan: It is not entirely clear to me why the patient would have developed this condition since he has been taking Xarelto for atrial fibrillation. For the time being, I have placed the patient on enoxaparin. We will eventually need to transition him back to Xarelto prior to discharge. (4) Gangrene of toe of right foot Assessment & Plan: Given his persistent atrial fibrillation and the fact that he does not have any significant peripheral arterial disease of the right lower extremity, this raises a concern for an embolic event. General surgery is following the patient. He will likely need at least a right great toe amputation. (5) Troponin level elevated Assessment & Plan: This is most likely a type II non-ST elevation myocardial infarction due to persistent tachycardia from the atrial fibrillation and decompensated heart failure. (6) Pulmonary hypertension Assessment & Plan: He has persistently elevated pulmonary artery pressure of unclear etiology. I suspect this may be multifactorial in part due to the chronic heart failure. This will need to be followed longitudinally. (7) Primary hypertension Assessment & Plan: I will be starting the patient on sotalol for the atrial fibrillation. Although this is not an antihypertensive medication, it may have some blood pressure lowering activity. (8) Mixed hyperlipidemia Assessment & Plan: He has reported history of hyperlipidemia but has not been on statin medication. I will plan to follow this as an outpatient. (9) Mitral regurgitation Assessment & Plan: Today's echocardiogram again only shows mild mitral regurgitation. This should not be contributing to his symptoms. JUAN ANTONIO HILL JR, MD Aug 20, 2021 08:16
[2021-08-20] MEDS: D5 LR IV SOLUTION 1,000 ML IV SCH ×3 (08:18→21:45)
[2021-08-20] MEDS: SENNA W/DOCUSATE (SENOKOT S) TABLET PO SCH ×2 (08:27→21:41)
[2021-08-20] MEDS ORDERED: SOTALOL 80 MG (BETAPACE) TAB PO SCH (09:00)
[2021-08-20] MEDS: ENOXAPARIN 80 MG/0.8 ML (LOVENOX) SYR SC SCH ×2 (09:34→21:41)
--- NOTE | 2021-08-20 09:39 | Diagnostic Imaging Report ---
PROCEDURE: US Venous Lower Ext Red. TECHNIQUE: Multiple real-time grayscale images were obtained over the lower extremities in various projections, bilaterally. Additional duplex Doppler and color Doppler images were also obtained. INDICATION: Congestive failure with lower extremity swelling. FINDINGS: The femoropopliteal system bilaterally showed normal color flow, normal compressibility. Waveforms grossly unremarkable. No deep or superficial venous thrombus. There is no discrete fluid collection. There is some subcutaneous edema. IMPRESSION: Negative for DVT. Dictated by: Dictated on workstation # [id number]
--- NOTE | 2021-08-20 09:39 | Diagnostic Imaging Report ---
INDICATION: Pain and swelling right upper extremity. FINDINGS: There is an occlusive thrombus which begins in the distal subclavian vein and extends throughout the right arm to the distal radial and ulnar veins. IMPRESSION: There is long segment deep venous thrombosis throughout the right upper extremity beginning at the subclavian vein. Dictated by: Dictated on workstation # [id number]
--- NOTE | 2021-08-20 09:49 | Diagnostic Imaging Report ---
US RIGHT LOW EXT [id number] INDICATION: Discoloration of toes on right foot. Right toes are black. Congestive heart failure COMPARISON: . TECHNIQUE: Grayscale, color Doppler and spectral Doppler imaging of the right lower extremity arteries was performed. FINDINGS: Color Doppler imaging shows patency of the common femoral, superficial femoral, popliteal, posterior tibial and dorsalis pedis arteries. All of the arteries have abnormal monophasic waveforms and peak systolic velocities of less than 80 cm/s. No focally elevated peak systolic velocities. Scattered vascular calcifications are present. IMPRESSION: 1. Diffuse monophasic waveforms throughout the right lower extremity are indicative of peripheral vascular disease. No focal high-grade stenosis. Dictated by: Dictated on workstation # [id number]
--- NOTE | 2021-08-20 10:14 | Tele-ICU Progress Note ---
Subjective Date Seen by a Provider: Aug 20, 2021 Time Seen by a Provider: 10:14 Sepsis Event Evaluation Height, Weight, BMI Height: '" Weight: lbs. oz. kg; 23.44 BMI Method: Focused Exam Lactate Level 08/19/21 20:40: Lactic Acid Level 2.30*H 08/20/21 03:15: Lactic Acid Level 2.34*H 08/20/21 05:29: Lactic Acid Level 1.55 Exam Exam Patient acknowledged, consented, and participated in this virtual visit which was conducted using real time audio/video Vital Signs Date Time Temp Pulse Resp B/P (MAP) Pulse Ox O2 Delivery O2 Flow Rate FiO2 08/20/21 09:36 114 08/20/21 08:41 99 Nasal Cannula 3.00 08/20/21 07:45 35.9 08/20/21 07:20 Nasal Cannula 3.00 100 08/20/21 06:23 106/76 100 Nasal Cannula 3.00 08/20/21 05:00 126 111/69 99 Nasal Cannula 3.00 08/20/21 04:00 98 Nasal Cannula 3.00 08/20/21 04:00 114 18 101/49 100 Nasal Cannula 3.00 08/20/21 03:00 113 109/74 100 Nasal Cannula 3.00 08/20/21 02:00 120 31 112/84 95 Nasal Cannula 3.00 08/20/21 01:15 108 20 116/76 100 Nasal Cannula 3.00 08/20/21 01:00 111 08/20/21 00:00 123 12 100/58 100 Nasal Cannula 3.00 08/19/21 23:59 99 Nasal Cannula 3.00 08/19/21 23:00 115 32 93/77 100 Nasal Cannula 3.00 08/19/21 22:25 141 118/96 08/19/21 22:15 133 23 118/67 100 Nasal Cannula 3.00 08/19/21 21:17 135 9 105/80 92 Nasal Cannula 3.00 08/19/21 20:15 131 17 122/85 100 Nasal Cannula 3.00 08/19/21 20:00 98 Nasal Cannula 3.00 08/19/21 19:43 36.8 141 118/96 100 Nasal Cannula 3.00 08/19/21 19:10 138 96 08/19/21 19:00 114 08/19/21 18:31 138 08/19/21 18:30 96 Nasal Cannula 3.00 08/19/21 18:15 36.3 135 112/97 100 Nasal Cannula 3.00 I & O 08/20/21 07:00 Intake Total 2850 ml Output Total 700 ml Balance 2150 ml Height & Weight Height: '" Weight: lbs. oz. kg; 23.44 BMI Method: General Appearance: No Apparent Distress Capillary Refill: Less Than 3 Seconds Results Lab Laboratory Tests 08/19/21 20:40 08/20/21 03:15 Assessment/Plan Assessment/Plan (Tele-ICU Physician , Progress Note ) Available chart/ vitals / labs / Images reviewed Video assessment done using teleICU camera, rest of exam as per RN Discussed with RN , EXAM PER RN Events overnight : Afebrile FiO2 - I/O = Drips: Pressors: , hemodynamically stable Consultants: Hospital course: A/P A fib - rvr - off esmolol gtt - sotalol - cards follow -lovenox 80 q 12 ECHO ef 75% Right toe gangrene - sx consulted, need a right first toe amputation versus a transmetatarsal amputation a sper sx assessment -broad spectrum antibiotic JOSE - improved with hydration - will decrease IVF to 75/h , resume lasix tomorrow ? Hypoxia - on 3 l RUE DVT - verbal report ( was on xarelro at home - failed ?, need CT to adress etiology - to avoid contrast today withAKI , ? plan for tomorrow Plans in collaboration with bedside consultants and IM MDs. Discussed with RN to reach out if any questions or concerns A total of 31 minutes of critical care time was devoted to this patient today, required to treat and/or prevent further deterioration of critical care condition ( as above) . SASKIA ALMAGUER MD Aug 20, 2021 10:14
[2021-08-20] MEDS ORDERED: ASPI325T32 PO (10:32)
[2021-08-20] MEDS ORDERED: IBUP-2473 PO (10:32)
--- NOTE | 2021-08-20 12:19 | History & Physical-Hospitalist ---
HOLLEY HOLLEY MED STUDENT 08/20/21 1219: History of Present Illness HPI/Chief Complaint CC-SOB Mr. Browning is a 76yo male wx history of CHF, Afib that presented to the [place] ER with dyspnea, worsening SOB of several months, decreased appetite, and cough with nasal drainage. He was found to be in Afib. He was transported to [facility] ICU for care. He was also noticed to have dry gangrene of the R foot and was started on ABX. He has cardiology consulted for his afib and Surgery consulted due to his foot. Xray shows suspected osteomyelitits of the 1st and 4th toes of the R foot and it is suspected that he will need amputation of at least the R big toe. He is admitted with the diagnosis of A.fib and sepsis. He had echo this morning as well as US of the extremities. Was found to have DDVT of L arm. Have MARISA scheduled for later. This morning he is sitting up in bed and eating breakfast. States he is doing alright. No nausea or vomiting. No other concerns this morning. Source: patient Exam Limitations: no limitations Date Seen 08/20/21 Time Seen by a Provider: 08:30 Attending Physician Jolanta Ruggiero DO PCP Referring Physician Date of Admission Aug 19, 2021 at 18:12 Home Medications & Allergies Home Medications Reviewed patient Home Medication Reconciliation performed by pharmacy medication reconciliations communications tower technician and/or nursing. Patients Allergies have been reviewed. Allergies Allergies Coded Allergies No Allergy Information Available (Xpubqtclmk82/21/21) Past Bnihckc-Egadxq-Zjjygs Hx Patient Social History Tobacco Use?: No Use of E-Cig and/or Vaping dev: No Substance use?: No Alcohol Use?: No Pt feels they are or have been: No Current Status Advance Directives: No Communicates: Verbally Primary Language: Beninese Preferred Spoken Language: Beninese Is interpretation needed?: No Sensory deficits: Hearing impairment Implanted or Applied Medical D: None Past Medical History Atrial Fibrillation A fib Review of Systems Constitutional: No chills, No dizziness, No fever EENTM: No hearing loss, No blurred vision, No vision loss Respiratory: cough; No dyspnea on exertion, No hemoptysis, No orthopnea, No phlegm; short of breath Gastrointestinal: No abdominal pain, No constipation, No diarrhea, No dysphagia, No hematemesis, No melena, No nausea, No vomiting Genitourinary: No dysuria, No frequency, No hematuria Skin: No rash Psychiatric/Neurological: Denies Headache Physical Exam Physical Exam Vital Signs Vital Signs - First Documented 08/19/21 08/19/21 08/20/21 18:15 20:15 07:20 Temp 36.3 Pulse 135 Resp 17 B/P (MAP) 112/97 Pulse Ox 100 O2 Delivery Nasal Cannula O2 Flow Rate 3.00 FiO2 100 Capillary Refill : Less Than 3 Seconds Height, Weight, BMI Height: '" Weight: lbs. oz. kg; 23.44 BMI Method: General Appearance: No Apparent Distress, Chronically ill Eyes: Bilateral Eye Normal Inspection, Bilateral Eye PERRL, Bilateral Eye EOMI HEENT: PERRL/EOMI, Pharynx Normal, Moist Mucous Membranes Neck: Supple Respiratory: Chest Non Tender, Lungs Clear, Normal Breath Sounds, No Accessory Muscle Use, No Respiratory Distress Cardiovascular: Regular Rate, Rhythm, No Edema, No Murmur, Normal Peripheral Pulses Gastrointestinal: Normal Bowel Sounds, No Organomegaly, No Pulsatile Mass, Non Tender, Soft Rectal: Deferred Extremity: Normal Capillary Refill, Normal Inspection, Non Tender, No Calf Tenderness, No Pedal Edema, Other (R foot is bandaged) Neurologic/Psychiatric: Alert, Oriented x3, Normal Mood/Affect Skin: Normal Color, Warm/Dry Results Results/Procedures Labs Laboratory Tests 08/19/21 20:40 08/20/21 03:15 Patient resulted labs reviewed. Imaging NAME: SUDHIR BROWNING [facility] REC#: [id number] PT STATUS: ADM IN : 1945 PHYSICIAN: KATELYN MURGUIA MD ADMIT DATE: 08/19/21/ICU Signed Date of Exam:08/19/21 CHEST 1 VIEW, AP/PA ONLY INDICATION: Pneumonia. COMPARISON: 06/20/2021. FINDINGS: The heart size is normal. There is bibasilar atelectasis and/or pneumonitis. There are small bilateral pleural effusions. There is mild venous congestion. There is no pneumothorax. The mediastinum is unremarkable. IMPRESSION: 1. Bibasilar atelectasis and/or pneumonitis and bilateral pleural effusions, left greater than right. 2. Mild central pulmonary venous congestion. Dictated by: Dictated on workstation # [id number] Dict: 08/19/211956 Trans: 08/19/212029 [facility] [id number] Interpreted by: PEYTON COOL MD Electronically signed by: PEYTON COOL MD 08/19/212029 NAME: SUDHIR BROWNING [facility] REC#: [id number] PT STATUS: ADM IN : 1945 PHYSICIAN: KATELYN MURGUIA MD ADMIT DATE: 08/19/21/ICU Draft Date of Exam:08/20/21 US VENOUS UPPER EXT RT INDICATION: Pain and swelling right upper extremity. FINDINGS: There is an occlusive thrombus which begins in the distal subclavian vein and extends throughout the right arm to the distal radial and ulnar veins. IMPRESSION: There is long segment deep venous thrombosis throughout the right upper extremity beginning at the subclavian vein. Dictated on workstation # [id number] Dict: 08/20/21934 Trans: 08/20/21938 [facility] [id number] Interpreted by: CINTHYA BRAXTON MD Electronically signed by: NAME: SUDHIR BROWNING [facility] REC#: [id number] PT STATUS: ADM IN : 1945 PHYSICIAN: KATELYN MURGUIA MD ADMIT DATE: 08/19/21/ICU Draft Date of Exam:08/20/21 US VENOUS LOWER EXT RYAN PROCEDURE: US Venous Lower Ext Ryan. TECHNIQUE: Multiple real-time grayscale images were obtained over the lower extremities in various projections, bilaterally. Additional duplex Doppler and color Doppler images were also obtained. INDICATION: Congestive failure with lower extremity swelling. FINDINGS: The femoropopliteal system bilaterally showed normal color flow, normal compressibility. Waveforms grossly unremarkable. No deep or superficial venous thrombus. There is no discrete fluid collection. There is some subcutaneous edema. IMPRESSION: Negative for DVT. Dictated on workstation # [id number] Dict: 08/20/21933 Trans: 08/20/21[facility] [id number] Interpreted by: JOSUÉ RIVERA Electronically signed by: NAME: SUDHIR BROWNING [facility] REC#: [id number] PT STATUS: ADM IN : 1945 PHYSICIAN: KATELYN MURGUIA MD ADMIT DATE: 08/19/21/ICU Draft Date of Exam:08/20/21 US VENOUS LOWER EXT RYAN PROCEDURE: US Venous Lower Ext Ryan. TECHNIQUE: Multiple real-time grayscale images were obtained over the lower extremities in various projections, bilaterally. Additional duplex Doppler and color Doppler images were also obtained. INDICATION: Congestive failure with lower extremity swelling. FINDINGS: The femoropopliteal system bilaterally showed normal color flow, normal compressibility. Waveforms grossly unremarkable. No deep or superficial venous thrombus. There is no discrete fluid collection. There is some subcutaneous edema. IMPRESSION: Negative for DVT. Dictated on workstation # [id number] Dict: 08/20/2134 Trans: 08/20/2139 [id number] Interpreted by: JOSUÉ RIVERA Electronically signed by: NAME: SUDHIR BROWNING [facility] REC#: [id number] PT STATUS: ADM IN : 1945 PHYSICIAN: AGUSTÍN FORD MD ADMIT DATE: 08/19/21/ICU Signed Date of Exam:08/20/21 US RIGHT LOW EXT [id number] US RIGHT LOW EXT [id number] INDICATION: Discoloration of toes on right foot. Right toes are black. Congestive heart failure COMPARISON: . TECHNIQUE: Grayscale, color Doppler and spectral Doppler imaging of the right lower extremity arteries was performed. FINDINGS: Color Doppler imaging shows patency of the common femoral, superficial femoral, popliteal, posterior tibial and dorsalis pedis arteries. All of the arteries have abnormal monophasic waveforms and peak systolic velocities of less than 80 cm/s. No focally elevated peak systolic velocities. Scattered vascular calcifications are present. IMPRESSION: 1. Diffuse monophasic waveforms throughout the right lower extremity are indicative of peripheral vascular disease. No focal high-grade stenosis. Dictated by: Dictated on workstation # [id number] Dict: 08/20/21 0945 Trans: 08/20/21 1110 [facility] [id number] Interpreted by: LISA BRAXTON MD Electronically signed by: LISA BRAXTON MD 08/20/21 1110 Assessment/Plan Admission Diagnosis A.fib and Sepsis Admission Status: Inpatient Order (span 2 midnights) Reason for Inpatient Admission: Sepsis Assessment and Plan A.fib -Cardilogy consulted -Diltiazem being given -Has received Echo and peripheral US -MARISA likely to be done -Continue to monitor Sepsis -ABX -monitor pt closely L arm DVT -Anticoagulation -Continue to monitor Gangrene/Osteomyelitis -Surgery consulted -Continuing abx -Will likely need amputation Hypokalemia -3.0 -Continue to monitor with labs and replace as necessary Critical Care Critically Ill Patient JOLANTA RUGGIERO 08/21/21 0623: History of Present Illness HPI/Chief Complaint CC: SOB from heart failure HPI: This is a 76yoWM who has a PMH of CHF managed by Dr. Roberts who presents from [facility] with SOB. Pt was placed in the ICU with IV diuresis. Right arm DVT noted on ultrasound, B/L lower extremities negative for DVT but right foot had dry gangrene that Dr. Ford will address. He will have MARISA today and he was placed on Vancomycin and Cefepime. His potassium is 3 being supplemented and his WBC is 15. At this current time pt denies any new issues and he was placed on Lovenox therapeutic dose. Source: patient Exam Limitations: no limitations Past Gpsulie-Nfwuhx-Rvqite Hx Patient Social History Marrital Status: single Employed/Student: retired Smoking Status: Former Smoker Past Medical History Surgeries: Coronary Stent COPD High Cholesterol, Hypertension Review of Systems Constitutional: see HPI, malaise, weakness EENTM: no symptoms reported Respiratory: dyspnea on exertion, short of breath Cardiovascular: no symptoms reported Gastrointestinal: no symptoms reported Genitourinary: no symptoms reported Musculoskeletal: no symptoms reported Skin: no symptoms reported Psychiatric/Neurological: No Symptoms Reported All Other Systems Reviewed Negative Unless Noted: Yes Physical Exam Physical Exam General Appearance: No Apparent Distress, Chronically ill Eyes: Right Eye Normal Inspection, Right Eye PERRL HEENT: PERRL/EOMI, Normal ENT Inspection, Pharynx Normal, Moist Mucous Membranes Neck: Full Range of Motion, Normal Inspection, Non Tender Respiratory: Chest Non Tender, Normal Breath Sounds, No Accessory Muscle Use, No Respiratory Distress, Decreased Breath Sounds Cardiovascular: No Edema, No Gallop, No JVD, No Murmur, Normal Peripheral Pulses, Irregularly Irregular, Tachycardia Gastrointestinal: Normal Bowel Sounds, No Organomegaly, No Pulsatile Mass, Non Tender, Soft Back: Normal Inspection, No CVA Tenderness, No Vertebral Tenderness Extremity: Normal Capillary Refill, Normal Inspection, Normal Range of Motion, Non Tender, No Calf Tenderness, No Pedal Edema Neurologic/Psychiatric: Alert, Oriented x3, No Motor/Sensory Deficits, Normal Mood/Affect Skin: Normal Color, Warm/Dry Lymphatic: No Adenopathy Assessment/Plan Admission Diagnosis Assessment: Acute hypoxic respiratory failure Sepsis Atrial fibrillation with rapid ventricular response 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 I reviewed and verified all information documented by the medical student and made modifications to such information, when appropriate. I personally performed the physical exam and medical decision making. Jolanta Ruggiero, Aug 21, 2021,06:18 HOLLEY HOLLEY MED STUDENT Aug 20, 2021 12:19 JOLANTA RUGGIERO DO Aug 21, 2021 06:23
--- NOTE | 2021-08-20 13:24 | Progress Note-Pre Operative ---
Pre-Operative Progress Note H&P Reviewed The H&P was reviewed, patient examined and no changes noted. Date Seen by Provider: Aug 20, 2021 Time Seen by Provider: 13:00 Date H&P Reviewed: Aug 20, 2021 Time H&P Reviewed: 13:00 Pre-Operative Diagnosis: right foot distal ischemia AGUSTÍN DUQUE MD Aug 20, 2021 13:24
[2021-08-20] MEDS: VANCOMYCIN 1250 MG/NS 250 ML IVPB IV SCH ×2 (16:13)
[2021-08-20] MEDS ORDERED: NS IV 500 ML 500 ML ONE (16:18)
[2021-08-20] MEDS ORDERED: LIDOCAINE 2% VISCOUS 15 ML UDC PO NR (16:30)
[2021-08-20] MEDS ORDERED: proPOfol 200 MG/20 ML (DIPRIVAN) VIAL IV ONE ×2 (16:44→17:45)
--- NOTE | 2021-08-20 17:41 | Anesthesia-General Post-Op ---
MAC Patient Condition Mental Status/LOC: Same as Preop Cardiovascular: Satisfactory Nausea/Vomiting: Absent Respiratory: Satisfactory Pain: Controlled Complications: Absent Post Op Complications Complications None Follow Up Care/Instructions Patient Instructions None needed. Anesthesiology Discharge Order Discharge Order Patient is doing well, no complaints, stable vital signs, no apparent adverse anesthesia problems. JANES VIDAL DO Aug 20, 2021 17:41
[2021-08-20] MEDS: meTOproloL SUCCINATE 50 MG (TOPROL XL) TAB PO NR ×2 (18:23→18:42)
[2021-08-21] MEDS: ESMOLOL DRIP PREMIX 250 ML IV SCH ×2 (03:39→15:29)
[2021-08-21] MEDS: CEFEPIME INJECTION 1,000 MG in NS (IVPB) 50 ML IV SCH ×4 (03:39→20:48)
[2021-08-21 05:42] LABS: BASOPHILS # (AUTO) 0.1 10^3/uL (0.0-0.1); BASOPHILS % (AUTO) 0 % (0-10); EOSINOPHILS # (AUTO) 0.1 10^3/uL (0.0-0.3); EOSINOPHILS % (AUTO) 1 % (0-10); HEMATOCRIT 43 % (40-54); HEMOGLOBIN 12.8 g/dL (13.3-17.7); LYMPHOCYTES # (AUTO) 1.6 10^3/uL (1.0-4.0); LYMPHOCYTES % (AUTO) 8 % (12-44); MEAN CORPUSCULAR HEMOGLOBIN 26 pg (25-34); MEAN CORPUSCULAR HGB CONC 30 g/dL (32-36); MEAN CORPUSCULAR VOLUME 86 fL (80-99); MEAN PLATELET VOLUME 10.3 fL (9.0-12.2); MONOCYTES # (AUTO) 1.7 10^3/uL (0.0-1.0); MONOCYTES % (AUTO) 9 % (0-12); NEUTROPHILS # (AUTO) 15.6 10^3/uL (1.8-7.8); NEUTROPHILS % (AUTO) 81 % (42-75); PLATELET COUNT 172 10^3/uL (130-400); WHITE BLOOD COUNT 19.2 10^3/uL (4.3-11.0)
[2021-08-21] MEDS: POTASSIUM CL 10MEQ/50ML IVPB 50 ML IV SCH (05:51)
[2021-08-21] MEDS: KCL 20 MEQ TAB (K-DUR) PO SCH (05:51)
[2021-08-21] MEDS: MAGNESIUM 1 GM/100 ML IVPB 100 ML IV SCH (05:51)
[2021-08-21 05:53] LABS: POTASSIUM 3.7 MMOL/L (3.6-5.0)
[2021-08-21 05:54] LABS: CALCIUM 8.1 MG/DL (8.5-10.1)
[2021-08-21 05:58] LABS: PHOSPHORUS 3.6 MG/DL (2.3-4.7)
[2021-08-21 05:59] LABS: CREATININE SERUM 1.12 MG/DL (0.60-1.30)
--- NOTE | 2021-08-21 06:53 | Progress Note - Hospitalist ---
Subjective HPI/CC On Admission Date Seen by Provider: Aug 21, 2021 Time Seen by Provider: 10:00 CC: SOB from heart failure HPI: This is a 76yoWM who has a PMH of CHF managed by Dr. Roberts who presents from [facility] with SOB. Pt was placed in the ICU with IV diuresis. Right arm DVT noted on ultrasound, B/L lower extremities negative for DVT but right foot had dry gangrene that Dr. Ford will address. He will have MARISA today and he was placed on Vancomycin and Cefepime. His potassium is 3 being supplemented and his WBC is 15. At this current time pt denies any new issues and he was placed on Lovenox therapeutic dose. Subjective/Events-last exam Pt doing well I saw him before he went to surgery for his right foot gangrene WBC 19.2 Checked meds and labs Denies any other new issues Review of Systems General: Fatigue, Malaise Musculoskeletal: foot pain Focused Exam Lactate Level 08/19/21 20:40: Lactic Acid Level 2.30*H 08/20/21 03:15: Lactic Acid Level 2.34*H 08/20/21 05:29: Lactic Acid Level 1.55 Objective Exam Vital Signs Vital Signs Date Time Temp Pulse Resp B/P (MAP) Pulse Ox O2 Delivery O2 Flow Rate FiO2 08/22/21 05:00 133 80/63 96 Nasal Cannula 3.00 08/22/21 03:00 37 08/21/21 19:28 36.3 08/21/21 11:42 98 Capillary Refill : Less Than 3 Seconds General Appearance: No Apparent Distress, WD/WN, Anxious, Chronically ill, Thin Respiratory: Lungs Clear, Normal Breath Sounds Cardiovascular: Irregularly Irregular Neurologic/Psychiatric: Alert, Oriented x3 Results/Procedures Lab Laboratory Tests 08/22/21 04:15 Patient resulted labs reviewed. Assessment/Plan Assessment and Plan Assess & Plan/Chief Complaint Assessment: A.fib with RVR -Cardilogy consulted -Diltiazem being given -Has received Echo and peripheral US -MARISA likely to be done -Continue to monitor Sepsis -ABX -monitor pt closely L arm DVT -Anticoagulation -Continue to monitor Gangrene/Osteomyelitis -Surgery consulted -Continuing abx -Surgery today Hypokalemia Plan: Surgery today A. fib and congestive heart failure cardiology manages Critical Care Critically Ill Patient VLAD CHAMBERS DO Aug 21, 2021 06:53
[2021-08-21 07:04] LABS: BAND NEUTROPHILS 3 %; LYMPHOCYTES % (MANUAL) 1 %; MONOCYTES % (MANUAL) 3 %; NEUTROPHILS % (MANUAL) 93 %
[2021-08-21] MEDS: morphine INJ 4 MG/ML 1 ML (VIAL/SYRINGE) IV PRN (08:13)
[2021-08-21] MEDS: meTOproloL SUCCINATE 50 MG (TOPROL XL) TAB PO SCH ×2 (09:00→17:37)
[2021-08-21] MEDS: FUROSEMIDE 40 MG/4 ML INJ (LASIX) IVP SCH ×2 (09:35→17:37)
[2021-08-21] MEDS: SENNA W/DOCUSATE (SENOKOT S) TABLET PO SCH ×2 (09:36→21:08)
[2021-08-21] MEDS: ENOXAPARIN 80 MG/0.8 ML (LOVENOX) SYR SC SCH ×2 (09:53→20:47)
[2021-08-21] MEDS: D5 LR IV SOLUTION 1,000 ML IV SCH (11:30)
[2021-08-21] MEDS ORDERED: fentaNYL INJ 100 MCG/2 ML AMP ONE (12:24)
[2021-08-21] MEDS ORDERED: ONDANSETRON 4 MG/2 ML (SDV) Z0FRAN ONE (12:24)
[2021-08-21] MEDS ORDERED: proPOfol 200 MG/20 ML (DIPRIVAN) VIAL IV ONE (12:24)
[2021-08-21] MEDS ORDERED: LIDOCAINE PF 2% 5 ML (XYLOCAINE) VIAL ONE (12:24)
[2021-08-21] MEDS ORDERED: LACTATED RINGERS 1,000 ML IV PRN (12:45)
[2021-08-21] MEDS ORDERED: VANCOMYCIN 1000 MG/VIAL ONE (13:02)
--- NOTE | 2021-08-21 13:02 | Tele-ICU Progress Note ---
Subjective Date Seen by a Provider: Aug 21, 2021 Time Seen by a Provider: 10:12 Subjective/Events-last exam HE IS SCHEDULED FOR TRANS METATARSAL AMPUTATION TODAY. LOVENOX ON HOLD FOR SURGERY. Sepsis Event Evaluation Height, Weight, BMI Height: '" Weight: lbs. oz. kg; 23.44 BMI Method: Focused Exam Lactate Level 08/19/21 20:40: Lactic Acid Level 2.30*H 08/20/21 03:15: Lactic Acid Level 2.34*H 08/20/21 05:29: Lactic Acid Level 1.55 Exam Exam Patient acknowledged, consented, and participated in this virtual visit which was conducted using real time audio/video Vital Signs Date Time Temp Pulse Resp B/P (MAP) Pulse Ox O2 Delivery O2 Flow Rate FiO2 08/21/21 12:15 98 Nasal Cannula 2.00 08/21/21 11:42 Nasal Cannula 2.00 98 08/21/21 11:20 36.5 08/21/21 11:00 124 19 115/69 97 Nasal Cannula 2.00 08/21/21 10:00 110 99/70 100 Nasal Cannula 2.00 08/21/21 09:00 109 8 99/72 99 Nasal Cannula 2.00 08/21/21 08:00 122 29 115/43 100 Nasal Cannula 2.00 08/21/21 07:45 98 Nasal Cannula 2.00 08/21/21 07:45 36.6 08/21/21 07:00 81 08/21/21 07:00 84 32 116/82 100 Nasal Cannula 2.00 08/21/21 06:00 88 22 92/66 99 Nasal Cannula 2.00 08/21/21 05:00 117 34 96/77 100 Nasal Cannula 2.00 08/21/21 04:00 98 Nasal Cannula 2.00 08/21/21 04:00 112 28 102/66 Nasal Cannula 2.00 08/21/21 03:00 105 21 90/60 98 Nasal Cannula 2.00 08/21/21 02:00 131 18 92/68 99 Nasal Cannula 2.00 08/21/21 01:00 115 08/21/21 01:00 101 21 91/61 99 Nasal Cannula 2.00 08/21/21 00:00 105 32 115/81 89 Nasal Cannula 2.00 08/20/21 23:59 96 Nasal Cannula 2.00 08/20/21 23:00 112 28 96/64 100 Nasal Cannula 2.00 08/20/21 22:00 108 20 90/62 99 Nasal Cannula 2.00 08/20/21 21:47 Nasal Cannula 2.00 08/20/21 21:00 126 21 94/65 100 Nasal Cannula 3.00 08/20/21 20:00 36.4 08/20/21 20:00 98 Nasal Cannula 2.00 08/20/21 20:00 158 116/84 98 Nasal Cannula 3.00 08/20/21 19:00 101 08/20/21 19:00 107 108/76 100 Nasal Cannula 3.00 08/20/21 18:00 129 50 109/84 93 Nasal Cannula 3.00 08/20/21 17:00 112 93/60 100 Nasal Cannula 3.00 08/20/21 16:45 99 Nasal Cannula 3.00 08/20/21 16:09 36.7 08/20/21 16:00 92 36 114/78 98 Nasal Cannula 3.00 08/20/21 15:00 22 97/75 100 Nasal Cannula 3.00 08/20/21 14:00 87 15 94/65 100 Nasal Cannula 3.00 08/20/21 13:00 97 19 98/61 100 Nasal Cannula 3.00 08/20/21 13:00 102 I & O 08/21/21 07:00 Intake Total 600 ml Output Total 1025 ml Balance -425 ml Height & Weight Height: '" Weight: lbs. oz. kg; 23.44 BMI Method: General Appearance: No Apparent Distress, Chronically ill HEENT: PERRL/EOMI, Normal ENT Inspection, Pharynx Normal, Moist Mucous Membranes Neck: Full Range of Motion, Normal Inspection, Non Tender Respiratory: Chest Non Tender, Normal Breath Sounds, No Accessory Muscle Use, No Respiratory Distress, Decreased Breath Sounds Cardiovascular: No Edema, No Gallop, No JVD, No Murmur, Normal Peripheral Pulses, Irregularly Irregular, Tachycardia Capillary Refill: Less Than 3 Seconds Extremity: Normal Capillary Refill, Normal Inspection, Normal Range of Motion, Non Tender, No Calf Tenderness, No Pedal Edema Neurologic/Psychiatric: Alert, Oriented x3, No Motor/Sensory Deficits, Normal Mood/Affect Skin: Normal Color, Warm/Dry Lymphatic: No Adenopathy Results Lab Laboratory Tests 08/19/21 20:40 12/21/21 03:15 08/21/21 04:55 Assessment/Plan Assessment/Plan (Tele-ICU Physician , Progress Note ) Available chart/ vitals / labs / Images reviewed Video assessment done using teleICU camera, rest of exam as per RN Discussed with RN , EXAM PER RN Events overnight : Afebrile FiO2 - I/O = Drips: Pressors: , hemodynamically stable Consultants: Hospital course: A/P A fib - rvr - off esmolol gtt - sotalol - cards follow -lovenox 80 q 12 ECHO ef 75% Right toe gangrene - sx consulted, GOING FOR SURGERY TODAY. JOSE - improved with hydration - CONTINUE TO MONITOR POST SURGERY Hypoxia - on 3 l RUE DVT - verbal report. STARTED ON LOVENOX BUT NOW ON HOLD FOR SURGERY. POSSIBLE FOOT INFECTION. BROAD SPECTRUM ANTIBIOTICS PER PCP Plans in collaboration with bedside consultants and IM MDs. Discussed with RN to reach out if any questions or concerns A total of 31 minutes of critical care time was devoted to this patient today, required to treat and/or prevent further deterioration of critical care condition ( as above) . Critical Care: Critically Ill Patient Time spent with patient (mins): 25 AYANA CESPEDES MD Aug 21, 2021 13:02
[2021-08-21] MEDS ORDERED: PHENYLEPHRINE 100 MCG/ML 10 ML (ANESTHESIA) SYR ONE (13:03)
[2021-08-21] MEDS ORDERED: NS IV 500 ML 500 ML ONE (13:05)
[2021-08-21] MEDS ORDERED: LIDOCAINE/EPI 1%-1:200,000 (XYLOCAINE) 30 ML VIAL ONE (13:22)
--- NOTE | 2021-08-21 14:29 | Progress Note-Post Operative ---
Post-Operative Progess Note Surgeon (s)/Lead Applications Developer (s) Surgeon AGUSTÍN DUQUE MD Lead Applications Developer: none Pre-Operative Diagnosis right foot distal ischemia Post-Operative Diagnosis same Procedure & Operative Findings Date of Procedure 08/21/21 Procedure Performed/Findings left foot complete transmetatarsal amputation, metatarsal nerve block. Anesthesia Type general LMA with nerve block Estimated Blood Loss Estimated blood loss (mL): minimal Specimens/Packing Specimens Removed left foot TMA AGUSTÍN DUQUE MD Aug 21, 2021 14:29
[2021-08-21] MEDS ORDERED: SEVOFLURANE (ULTANE) 15 ML INHAL SOLN ONE (14:30)
[2021-08-21 14:33] VITALS: BP 93/51
[2021-08-21 14:40] VITALS: BP 60/40
[2021-08-21] MEDS ORDERED: morphine INJ 10 MG/ML 1ML (SYR OR VIAL) IVP ONE (14:45)
[2021-08-21] MEDS ORDERED: MEPERIDINE (DEMEROL) INJ 50 MG/ML IVP ONE (14:45)
[2021-08-21] MEDS ORDERED: PROMETHAZINE INJ 25 MG/ML (PHENERGAN) AMP IVP NR (14:45)
[2021-08-21] MEDS ORDERED: ONDANSETRON 4 MG/2 ML (SDV) Z0FRAN IVP PRN (14:45)
[2021-08-21 14:50] VITALS: BP 90/67
[2021-08-21 15:00] VITALS: BP 85/68
[2021-08-21 15:10] VITALS: BP 92/70
[2021-08-21] MEDS: VANCOMYCIN 1250 MG/NS 250 ML IVPB IV SCH ×2 (15:34)
--- NOTE | 2021-08-21 17:42 | Cardiology Progress Note ---
Progress Note-Cardiology Events since last exam Date Seen by Provider: Aug 21, 2021 Time Seen by Provider: 17:35 Events since last exam I am following him due to atrial fibrillation and heart failure. Earlier this afternoon he underwent a transmetatarsal amputation of the right foot. He states that he feels awful all over does not have any specific discomfort. He still has shortness of breath. He denies chest pain, palpitations, or syncope. He does have some degree of pain in the right foot. Certain portions of this document may have been dictated utilizing voice recognition technology. Inherent to this technology, typographical and grammatical errors may exist. As much as I am diligent to identify and correct these mistakes, some errors may remain in the document. Vitals Last set of Vitals Signs Vital Signs 08/21/21 08/21/21 08/21/21 08/21/21 11:42 15:10 16:00 16:30 Temp 37.0 Pulse 99 Resp 15 B/P (MAP) 104/70 Pulse Ox 95 O2 Delivery Nasal Cannula O2 Flow Rate 3.00 FiO2 98 Labs Labs Laboratory Tests 08/21/21 04:55 Exam Vital Signs Vital Signs Date Time Temp Pulse Resp B/P (MAP) Pulse Ox O2 Delivery O2 Flow Rate FiO2 08/21/21 16:30 95 Nasal Cannula 3.00 08/21/21 16:00 99 15 104/70 08/21/21 15:10 37.0 08/21/21 11:42 98 Physical Exam General: Alert. No acute distress. Eye: No xanthelasma. HENT: Normocephalic. Neck: Jugular venous pressure does not appear elevated. Respiratory: Lungs are clear to auscultation. Respirations are non-labored. Breath sounds are equal. Symmetrical chest wall expansion. Cardiovascular: Tachycardia with irregular rhythm. No murmur. No gallop. Trace bilateral pretibial edema. Gastrointestinal: Soft. Normal bowel sounds. Skin: Warm. Dry. Right foot is bandaged which is dry and intact. Neurologic: Alert and oriented to person, place, time. Cranial nerves 3-11 grossly intact. Psychiatric: Cooperative. Appropriate mood & affect. Labs Laboratory Tests Test 08/21/21 04:55 Range/Units White Blood Count 19.2 H 4.3-11.0 10^3/uL Red Blood Count 4.95 4.30-5.52 10^6/uL Hemoglobin 12.8 L 13.3-17.7 g/dL Hematocrit 43 40-54 % Mean Corpuscular Volume 86 80-99 fL Mean Corpuscular Hemoglobin 26 25-34 pg Mean Corpuscular Hemoglobin Concent 30 L 32-36 g/dL Red Cell Distribution Width 15.1 H 10.0-14.5 % Platelet Count 172 130-400 10^3/uL Mean Platelet Volume 10.3 9.0-12.2 fL Immature Granulocyte % (Auto) 1 % Neutrophils (%) (Auto) 81 H 42-75 % Lymphocytes (%) (Auto) 8 L 12-44 % Monocytes (%) (Auto) 9 0-12 % Eosinophils (%) (Auto) 1 0-10 % Basophils (%) (Auto) 0 0-10 % Neutrophils # (Auto) 15.6 H 1.8-7.8 10^3/uL Lymphocytes # (Auto) 1.6 1.0-4.0 10^3/uL Monocytes # (Auto) 1.7 H 0.0-1.0 10^3/uL Eosinophils # (Auto) 0.1 0.0-0.3 10^3/uL Basophils # (Auto) 0.1 0.0-0.1 10^3/uL Immature Granulocyte # (Auto) 0.2 H 0.0-0.1 10^3/uL Neutrophils % (Manual) 93 % Lymphocytes % (Manual) 1 % Monocytes % (Manual) 3 % Band Neutrophils 3 % Sodium Level 142 135-145 MMOL/L Potassium Level 3.7 3.6-5.0 MMOL/L Chloride Level 100 98-107 MMOL/L Carbon Dioxide Level 29 21-32 MMOL/L Anion Gap 13 5-14 MMOL/L Blood Urea Nitrogen 26 H 7-18 MG/DL Creatinine 1.12 0.60-1.30 MG/DL Estimat Glomerular Filtration Rate 64 BUN/Creatinine Ratio 23 Glucose Level 102 70-105 MG/DL Calcium Level 8.1 L 8.5-10.1 MG/DL Phosphorus Level 3.6 2.3-4.7 MG/DL Magnesium Level 2.0 1.6-2.4 MG/DL Diagnosis/Problems Diagnosis/Problems (1) Acute on chronic heart failure with preserved ejection fraction (HFpEF) Assessment & Plan: He probably has some decompensation of his heart failure. He is now on intravenous Lasix twice a day which I would continue for at least the next 24 hours. I will obtain a follow-up chest x-ray tomorrow. We need to watch his renal function closely. (2) Persistent atrial fibrillation Assessment & Plan: He remains in atrial fibrillation. He may have missed 1 dose of Xarelto but otherwise states he has been compliant with this medication. He has persistent tachycardia which may be contributing to his decompensated heart failure. I am also concerned with his gangrenous toe on the right foot could have been an embolic event. Continue therapeutic dose of enoxaparin and ultimately transition him back to Xarelto. I have started him on metoprolol succinate for rate control. I was planning to initiate therapy with sotalol but we were not able to perform a transesophageal echocardiogram since the patient could not swallow the probe. As such, he will need at least another 4 weeks of therapeutic anticoagulation before we can attempt starting sotalol and cardioversion. (3) Deep vein thrombosis, upper right extremity Assessment & Plan: It is not entirely clear to me why the patient would have developed this condition since he has been taking Xarelto for atrial fibrillation. However, he has reported poor appetite and weight loss as well as some dysphagia. He may not be absorbing Xarelto properly. (4) Gangrene of toe of right foot Assessment & Plan: Given his persistent atrial fibrillation and the fact that he does not have any significant peripheral arterial disease of the right lower extremity, this raises a concern for an embolic event. 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 (5) Troponin level elevated Assessment & Plan: This is most likely a type II non-ST elevation myocardial infarction due to persistent tachycardia from the atrial fibrillation and decompensated heart failure. (6) Pulmonary hypertension Assessment & Plan: He has persistently elevated pulmonary artery pressure of unclear etiology. I suspect this may be multifactorial in part due to the chronic heart failure. This will need to be followed longitudinally. (7) Primary hypertension Assessment & Plan: I have started him on metoprolol to help with rate control for the atrial fibrillation. His blood pressure has been better today and actually at times somewhat low. (8) Mixed hyperlipidemia Assessment & Plan: He has reported history of hyperlipidemia but has not been on statin medication. I will plan to follow this as an outpatient. (9) Mitral regurgitation Assessment & Plan: Today's echocardiogram again only shows mild mitral regurgitation. This should not be contributing to his symptoms. (10) Dysphagia Assessment & Plan: I have placed an order to ask the surgeon to evaluate his dysphagia. JUAN ANTONIO HILL JR, MD Aug 21, 2021 17:42
[2021-08-21] MEDS: dilTIAZem DRIP PRE-MIX 125 ML IV SCH (20:46)
--- NOTE | 2021-08-21 23:17 | OPERATIVE REPORT ---
DATE OF SERVICE: 08/21/2021 ADMITTING PHYSICIAN: Dr. Ruggiero. PREOPERATIVE DIAGNOSIS: Ischemic distal right foot. POSTOPERATIVE DIAGNOSIS: Ischemic distal right foot. PROCEDURE: Complete right foot transmetatarsal amputation. Metatarsal nerve block. SURGEON: Agustín Duque MD. ANESTHESIA: General laryngeal mask with local and metatarsal nerve block. ESTIMATED BLOOD LOSS: Minimal. FINDINGS: Ischemic distal right foot. DISPOSITION: The patient tolerated the procedure well. INDICATIONS: The patient is a 76-year-old male who presented to the Emergency Department with shortness of breath and reported that he has stopped taking his normal Lasix. He initially presented to the Emergency Department in [place], [place] and was found to be in atrial fibrillation with a rapid ventricular response and was admitted to the [facility] ICU. With medication, his cardiac rhythm seems to be intact. Upon examination, he was found to have necrotic right first toe as well as significant ischemic changes throughout the remainder of his toes 2 through 5. He states he has a history of hypertension; however, based on the chronic changes of both of his feet he does have peripheral arterial disease. Arterial ultrasound was performed, which showed monophasic waveform in both posterior tibial and dorsalis pedis bilaterally. DESCRIPTION OF PROCEDURE: The patient was brought to the operating room, laid supine on the table. After adequate IV pain and sedative medications and general laryngeal mask airway intubation, the right foot was prepped and draped in standard surgical fashion. A 0.5% Marcaine with epinephrine was then used to proceed with metatarsal nerve block between all interspaces. The local anesthesia was also placed around the excision site. The excision site was marked off with a marking pen creating a posterior flap. The dorsal aspect was first incised using a 10 blade and the subcutaneous tissue and extensor ligaments were dissected down using electrocautery. A periosteal elevator was then used to remove the periosteum, soft tissue and muscle attachments to all 5 distal metatarsals. In a similar fashion, a plantar surface incision was made using a 10 blade. The flexor tendons and subcutaneous tissue were then dissected using electrocautery. The muscle attachments and periosteum were then removed from all 5 distal metatarsals using the periosteal elevator. Using a medium size saw blade the transmetatarsal amputation of all 5 distal metatarsal bones was performed with visualization of good hemostasis. We then proceeded with closure of the fascia, creating the posterior flap using interrupted 0 Vicryl sutures. This was done in two layers. The skin was then closed using interrupted 0 Prolene horizontal mattress sutures. Wound was then cleaned and covered with sterile gauze followed by Kerlix, followed by Coban and a walking shoe. The patient tolerated the procedure well. He will be instructed to proceed with physical and occupational therapy as well as continued anticoagulation. His goal will be to increase arterial collateralization. Job ID: [id number] DocumentID: [id number] Dictated Date: 08/21/2021 14:46:29 Propulsion Machinery Service Engineer Date: 08/21/2021 23:16:57 Dictated By: AGUSTÍN DUQUE MD MTDD
[2021-08-22] MEDS: ESMOLOL DRIP PREMIX 250 ML IV SCH ×3 (00:37→21:14)
[2021-08-22] MEDS: HYDROcodone/APAP 7.5 MG/325 MG (LORTAB, LORCET PLUS) TABLET PO PRN ×2 (02:41→11:49)
[2021-08-22] MEDS ORDERED: TROUGH ORDER-PHARMACY XX NR (03:30)
[2021-08-22] MEDS: CEFEPIME INJECTION 1,000 MG in NS (IVPB) 50 ML IV SCH ×4 (04:01→21:14)
[2021-08-22 04:51] LABS: BASOPHILS # (AUTO) 0.1 10^3/uL (0.0-0.1); BASOPHILS % (AUTO) 0 % (0-10); EOSINOPHILS # (AUTO) 0.2 10^3/uL (0.0-0.3); EOSINOPHILS % (AUTO) 1 % (0-10); HEMATOCRIT 44 % (40-54); HEMOGLOBIN 13.1 g/dL (13.3-17.7); LYMPHOCYTES # (AUTO) 1.4 10^3/uL (1.0-4.0); LYMPHOCYTES % (AUTO) 8 % (12-44); MEAN CORPUSCULAR HEMOGLOBIN 26 pg (25-34); MEAN CORPUSCULAR HGB CONC 30 g/dL (32-36); MEAN CORPUSCULAR VOLUME 87 fL (80-99); MEAN PLATELET VOLUME 10.5 fL (9.0-12.2); MONOCYTES # (AUTO) 1.6 10^3/uL (0.0-1.0); MONOCYTES % (AUTO) 9 % (0-12); NEUTROPHILS # (AUTO) 15.3 10^3/uL (1.8-7.8); NEUTROPHILS % (AUTO) 82 % (42-75); PLATELET COUNT 178 10^3/uL (130-400); WHITE BLOOD COUNT 18.7 10^3/uL (4.3-11.0)
[2021-08-22] MEDS: D5 LR IV SOLUTION 1,000 ML IV SCH ×2 (05:06→17:50)
[2021-08-22 05:07] LABS: POTASSIUM 3.6 MMOL/L (3.6-5.0)
[2021-08-22 05:08] LABS: CALCIUM 8.2 MG/DL (8.5-10.1)
[2021-08-22 05:13] LABS: CREATININE SERUM 1.27 MG/DL (0.60-1.30); PHOSPHORUS 3.8 MG/DL (2.3-4.7)
[2021-08-22 05:15] LABS: MAGNESIUM 1.8 MG/DL (1.6-2.4)
[2021-08-22] MEDS: VANCOMYCIN 1250 MG/NS 250 ML IVPB IV SCH ×2 (05:25)
[2021-08-22] MEDS: MAGNESIUM 1 GM/100 ML IVPB 100 ML IV SCH (05:26)
[2021-08-22] MEDS: KCL 20 MEQ TAB (K-DUR) PO SCH (05:26)
[2021-08-22] MEDS: POTASSIUM CL 10MEQ/50ML IVPB 50 ML IV SCH ×3 (05:26→07:36)
--- NOTE | 2021-08-22 06:51 | Diagnostic Imaging Report ---
INDICATION: Follow-up atrial fibrillation. RVR. Chest 08/22/2021 COMPARISON: 08/19/2021 FINDINGS: There are bibasal infiltrates with small bilateral effusions left greater than right. There is cardiomegaly with pulmonary vascular congestion. There is no pneumothorax. IMPRESSION: 1. Increasing bibasal infiltrates and effusions left worse than right. 2. Pulmonary vascular congestion. Dictated by: Dictated on workstation # [id number]
[2021-08-22] MEDS: FUROSEMIDE 40 MG/4 ML INJ (LASIX) IVP SCH ×2 (07:31→17:06)
[2021-08-22] MEDS: ENOXAPARIN 80 MG/0.8 ML (LOVENOX) SYR SC SCH ×2 (07:53→21:14)
[2021-08-22] MEDS: SENNA W/DOCUSATE (SENOKOT S) TABLET PO SCH ×2 (08:14→21:14)
[2021-08-22] MEDS: meTOproloL SUCCINATE 50 MG (TOPROL XL) TAB PO SCH (08:14)
[2021-08-22] MEDS ORDERED: DIGOXIN 0.25 MG/ML (LANOXIN) 2 ML AMP IV NR (09:14)
--- NOTE | 2021-08-22 10:14 | Anesthesia-General Post-Op ---
General Patient Condition Mental Status/LOC: Same as Preop Cardiovascular: Satisfactory Nausea/Vomiting: Absent Respiratory: Satisfactory Pain: Controlled Complications: Absent Post Op Complications Complications None Follow Up Care/Instructions Patient Instructions None needed. Anesthesia/Patient Condition Patient Condition Patient is doing well, no complaints, stable vital signs, no apparent adverse anesthesia problems. No complications reported per nursing. CHLOE ESPINOZA CRNA Aug 22, 2021 10:14
--- NOTE | 2021-08-22 10:34 | Physical Therapy Evaluation ---
PT Evaluation-General Medical Diagnosis Admission Date Aug 19, 2021 at 18:12 Medical Diagnosis: right transmetatarsal amputation Onset Date: Aug 21, 2021 Therapy Diagnosis Therapy Diagnosis: impaired mobility, strength, enduance Precautions Precautions/Isolations: Fall Prevention, Standard Precautions Weight Bear Status Right Lower Extremity: Right Weight Bearing/Tolerated Left Lower Extremity: Left Full Weight Bearing Referral Physician: Ольга Reason for Referral: Evaluation/Treatment Medical History Pertinent Medical History: Atrial Fib Reviewed History: Yes Social History Home: Single Level Current Living Status: Alone Entry Into Home: Stairs Without Railing PT Steps Into Home: 1 Patient states he has sons that live close and can help. Prior Prior Level of Function SCALE: Activities may be completed with or without assistive devices. 2-Lyncxvpxaa-xfgnpoq completes the activity by him/herself with no assistance from a helper. 5-Set-up or Clean-up Assistance-helper sets up or cleans up; patient completes activity. [place] assists only prior to or following the activity. 4-Supervision or Touching Assistance-helper provides verbal cues and/or touching/steadying and/or contact guard assistance as patient completes activity. Assistance may be provided throughout the activity or intermittently. 3-Partial/Moderate Assistance-helper does LESS THAN HALF the effort. [place] lifts, holds or supports trunk or limbs, but provides less than half the effort. 2-Substantial/Maximal Assistance-helper does MORE THAN HALF the effort. [place] lifts or holds trunk or limbs and provides more than half the effort. 1-Bnslqbisl-dmmmvg does ALL the effort. Patient does none of the effort to c omplete the activity. Or, the assistance of 2 or more helpers is required for the patient to complete the activity. If activity was not attempted, code reason: 7-Patient Refused. 9-Not Applicable-not attempted and the patient did not perform the activity before the current illness, exacerbation or injury. 10-Not Attempted due to Environmental Limitations-(lack of equipment, weather restraints, etc.). 88-Not Attempted due to Medical Conditions or Safety Concerns. Bed Mobility: 6 Transfers (B,C,W/C): 6 Gait: 6 Stairs: 6 Indoor Mobility (Ambulation): Independent Stairs: Independent PT Evaluation-Current Subjective Patient in recliner pre tx, agrees to PT, has 4/10 pain in right foot. Pt/Family Goals to be independent at home Objective Patient Orientation: Person, Place, Situation Attachments: Oxygen, IV ROM/Strength ROM Lower Extremities WNL Strength Lower Extremities LLE (hip flexion 3/5, knee flexion 4-/5, knee extension 4/5, dorsiflexion 4-/5), RLE (hip flexion 3/5, knee flexion 4-/5, knee extension 4/5) Sensory Hearing: Functional Sensation Right Lower Extremit: Intact Sensation Left Lower Extremity: Intact Transfers Sit to Stand (QC): 1 Attempted to stand twice with max assist from therapist, he could come up most of the way but not completely. Patient instructed to keep weight on heel and not on forefoot on the right side. Balance Sitting Static: Normal Sitting Dynamic: Normal Standing Static: Poor Standing Dynamic: Poor Treatment BLE exercises x20 (AP, LAQ) Assessment/Needs Patient has impaired mobility, strength, endurance. Patient in recliner post tx with nurse call, phone, tray, all needs met. His legs are pretty weak, he cannot stand using a rolling walker and assist from therapist. Rehab Potential: Fair PT Intermediate Goals Intermediate Goals PT R&D Engineer Goals Time Frame: Aug 29, 2021 Roll Left & Right (QC): 6 Sit to Lying (QC): 6 Lying-Sitting on Side/Bed(QC): 6 Sit to Stand (QC): 3 Chair/Dbx-wq-Obmoq Xfer(QC): 3 PT Plan Problem List Problem List: Activity Tolerance, Functional Strength, Safety, Balance, Gait, Transfer, Bed Mobility, ROM Treatment/Plan Treatment Plan: Continue Plan of Care Treatment Plan: Bed Mobility, Education, Functional Activity [place], Functional Strength, Gait, Safety, Therapeutic Exercise, Transfers Treatment Duration: Aug 29, 2021 Frequency: 6 times per week Estimated Hrs Per Day: .25 hour per day Patient and/or Family Agrees t: Yes Safety Risks/Education Patient Education: Reviewed Precautions, Correct Positioning, Safety Issues Teaching Recipient: Patient Teaching Methods: Demonstration, Discussion Response to Teaching: Reinforcement Needed Discharge Recommendations Plan Patient will perform bed mobility and transfer training, balance and endurance training, functional strengthening, stair training, gait training, and education, to improve functional mobility and independence at home. Therapy Discharge Recommendati: Scheduled Assistance, Home & Family, Post Acute PT Time/GCodes Time In: 1017 Time Out: 1029 Total Billed Treatment Time: 12 Total Billed Treatment 1 visit ELSIE NGUYEN PT Aug 22, 2021 10:34
--- NOTE | 2021-08-22 10:51 | Progress Note - Hospitalist ---
Subjective HPI/CC On Admission Date Seen by Provider: Aug 22, 2021 Time Seen by Provider: 11:30 CC: SOB from heart failure HPI: This is a 76yoWM who has a PMH of CHF managed by Dr. Roberts who presents from [facility][1] with SOB. Pt was placed in the ICU with IV diuresis. Right arm DVT noted on ultrasound, B/L lower extremities negative for DVT but right foot had dry gangrene that Dr. Duque will address. He will have MARISA today and he was placed on Vancomycin and Cefepime. His potassium is 3 being supplemented and his WBC is 15. At this current time pt denies any new issues and he was placed on Lovenox therapeutic dose. Subjective/Events-last exam Pt requiring ICU due to mild hypotension Appears to be very frail AF and heart failure managed S/p right metatarsal amputation due to gangrene yesterday Holding Lasix due to hypotension Review of Systems General: Fatigue, Malaise Focused Exam Lactate Level Objective Exam Vital Signs Vital Signs Date Time Temp Pulse Resp B/P (MAP) Pulse Ox O2 Delivery O2 Flow Rate FiO2 08/23/21 04:28 36.1 08/23/21 04:00 129 20 109/98 90 Nasal Cannula 2.00 08/21/21 11:42 98 Capillary Refill : Less Than 3 Seconds General Appearance: No Apparent Distress, WD/WN, Chronically ill, Thin Respiratory: Lungs Clear, Normal Breath Sounds, Decreased Breath Sounds Cardiovascular: Irregularly Irregular, Tachycardia Neurologic/Psychiatric: Alert, Oriented x3, No Motor/Sensory Deficits, Normal Mood/Affect Results/Procedures Lab Laboratory Tests 08/23/21 05:10 Patient resulted labs reviewed. Assessment/Plan Assessment and Plan Assess & Plan/Chief Complaint Assessment: A.fib with RVR -Cardilogy consulted -Diltiazem being given -Has received Echo and peripheral US -MARISA unsuccessful due to inability to progress scope consulted Dr. DUUQE for esophageal stricture -Continue to monitor Sepsis -ABX -monitor pt closely L arm DVT -Anticoagulation -Continue to monitor Gangrene/Osteomyelitis -Surgery consulted -Continuing abx -Status post right metatarsal amputation Hypokalemia Plan: Surgery today A. fib and congestive heart failure cardiology manages 08/22/2021: Supportive care Anticoagulation Appreciate general surgery Critical Care Critically Ill Patient REYESVLAD GREGG Aug 22, 2021 10:51
--- NOTE | 2021-08-22 12:32 | Tele-ICU Progress Note ---
Subjective Date Seen by a Provider: Aug 22, 2021 Time Seen by a Provider: 12:27 Subjective/Events-last exam he had tma done yesterday. c/o rt foot pain. hr is in afib but rate is about 100-110/mt one dose of dig given Review of Systems ros per rn Sepsis Event Evaluation Height, Weight, BMI Height: '" Weight: lbs. oz. kg; 23.44 BMI Method: Focused Exam Lactate Level 08/19/21 20:40: Lactic Acid Level 2.30*H 08/20/21 03:15: Lactic Acid Level 2.34*H 08/20/21 05:29: Lactic Acid Level 1.55 Exam Exam Patient acknowledged, consented, and participated in this virtual visit which was conducted using real time audio/video Vital Signs Date Time Temp Pulse Resp B/P (MAP) Pulse Ox O2 Delivery O2 Flow Rate FiO2 08/22/21 12:11 100 Nasal Cannula 3.00 08/22/21 11:30 36.2 08/22/21 10:00 106 19 108/64 96 Nasal Cannula 3.00 08/22/21 09:00 126 16 102/66 95 Nasal Cannula 3.00 08/22/21 08:50 100 Nasal Cannula 3.00 08/22/21 08:00 112 24 105/67 100 Nasal Cannula 3.00 08/22/21 07:56 35.9 08/22/21 07:00 112 22 107/61 100 Nasal Cannula 3.00 08/22/21 07:00 111 08/22/21 06:00 133 32 92/49 100 Nasal Cannula 3.00 08/22/21 05:00 133 80/63 96 Nasal Cannula 3.00 08/22/21 04:00 98 Nasal Cannula 3.00 08/22/21 04:00 121 103/81 100 Nasal Cannula 3.00 08/22/21 03:00 109 37 92/62 85 Nasal Cannula 3.00 08/22/21 02:00 112 105/67 98 Nasal Cannula 3.00 08/22/21 01:00 89 17 101/76 99 Nasal Cannula 3.00 08/22/21 00:55 101 08/22/21 00:00 94 23 86/63 98 Nasal Cannula 3.00 08/21/21 23:59 95 Nasal Cannula 3.00 08/21/21 23:00 101 20 100/70 100 Nasal Cannula 3.00 08/21/21 22:00 97 101/60 82 Nasal Cannula 3.00 08/21/21 21:02 98 Nasal Cannula 2.00 08/21/21 21:00 114 89/62 97 Nasal Cannula 3.00 08/21/21 20:00 95 9 92/70 97 Nasal Cannula 3.00 08/21/21 20:00 95 Nasal Cannula 3.00 08/21/21 19:28 36.3 08/21/21 19:00 110 97/60 99 Nasal Cannula 3.00 08/21/21 19:00 113 08/21/21 18:00 104 21 111/77 100 Nasal Cannula 3.00 08/21/21 17:00 96 27 106/70 98 Nasal Cannula 3.00 08/21/21 16:30 95 Nasal Cannula 3.00 08/21/21 16:00 99 15 104/70 96 Nasal Cannula 3.00 08/21/21 15:28 120 08/21/21 15:20 Nasal Cannula 3.00 08/21/21 15:20 Nasal Cannula 3.00 08/21/21 15:10 37.0 16 92/70 (77) 98 Nasal Cannula 3 08/21/21 15:00 14 85/68 (74) 98 Nasal Cannula 3 08/21/21 15:00 109/67 08/21/21 14:55 Nasal Cannula 3 08/21/21 14:50 15 90/67 (75) 100 OxyMask 10 08/21/21 14:40 14 60/40 (47) 99 OxyMask 10 08/21/21 14:33 OxyMask 10 08/21/21 14:33 36.1 16 93/51 (65) 100 OxyMask 10 08/21/21 13:00 113 29 98 Nasal Cannula 2.00 I & O 08/22/21 07:00 Intake Total 415 ml Output Total 1375 ml Balance -960 ml Height & Weight Height: '" Weight: lbs. oz. kg; 23.44 BMI Method: General Appearance: No Apparent Distress, WD/WN, Anxious, Chronically ill, Thin HEENT: PERRL/EOMI, Normal ENT Inspection, Pharynx Normal, Moist Mucous Membranes Neck: Full Range of Motion, Normal Inspection, Non Tender Respiratory: Lungs Clear, Normal Breath Sounds Cardiovascular: Irregularly Irregular Capillary Refill: Less Than 3 Seconds Extremity: Normal Capillary Refill, Normal Inspection, Normal Range of Motion, Non Tender, No Calf Tenderness, No Pedal Edema Neurologic/Psychiatric: Alert, Oriented x3 Skin: Normal Color, Warm/Dry Lymphatic: No Adenopathy Other comments pe per rn Results Lab Laboratory Tests 08/21/21 04:55 08/22/21 04:15 Assessment/Plan Assessment/Plan (Tele-ICU Physician , Progress Note ) Available chart/ vitals / labs / Images reviewed Video assessment done using teleICU camera, rest of exam as per RN Discussed with RN , EXAM PER RN Events overnight : Afebrile FiO2 - I/O = Drips: Pressors: , hemodynamically stable Consultants: Hospital course: A/P A fib - rvr - off esmolol gtt - sotalol - cards follow -lovenox 80 q 12 ECHO ef 75% Right toe gangrene - S/P TMA JOSE - improved with hydration - CONTINUE TO MONITOR POST SURGERY Hypoxia - on 3 l RUE DVT - verbal report. STARTED ON LOVENOX POSSIBLE FOOT INFECTION. BROAD SPECTRUM ANTIBIOTICS PER PCP Plans in collaboration with bedside consultants and IM MDs. Discussed with RN to reach out if any questions or concerns A total of 20 minutes of critical care time was devoted to this patient today, required to treat and/or prevent further deterioration of critical care cond ition ( as above) . Critical Care: Critically Ill Patient Critical Care: Critically Ill Patient Time spent with patient (mins): 20 AYANA CESPEDES MD Aug 22, 2021 12:32
--- NOTE | 2021-08-22 12:40 | Cardiology Progress Note ---
Progress Note-Cardiology Events since last exam Date Seen by Provider: Aug 22, 2021 Time Seen by Provider: 12:38 Events since last exam I am following him due to atrial fibrillation and heart failure. Today his breathing is better. However, he has having nausea and vomiting. He denies abdominal pain. He denies chest discomfort, palpitations, syncope, or ankle edema. The patient received metoprolol succinate last evening and his heart rates had improved. He was supposed to get a dose this morning but his blood pressure was a little bit soft so the nurse hold the metoprolol. eICU then gave him intravenous digoxin. Certain portions of this document may have been dictated utilizing voice recognition technology. Inherent to this technology, typographical and grammatical errors may exist. As much as I am diligent to identify and correct these mistakes, some errors may remain in the document. Vitals Last set of Vitals Signs Vital Signs 08/21/21 08/22/21 08/22/21 08/22/21 08/22/21 11:42 11:30 12:00 12:11 13:00 Temp 36.2 Pulse 99 Resp 18 B/P (MAP) 102/62 Pulse Ox 100 O2 Delivery Nasal Cannula O2 Flow Rate 3.00 FiO2 98 Labs Labs Laboratory Tests 08/22/21 04:15 Exam Vital Signs Vital Signs Date Time Temp Pulse Resp B/P (MAP) Pulse Ox O2 Delivery O2 Flow Rate FiO2 08/22/21 13:00 99 08/22/21 12:11 100 Nasal Cannula 3.00 08/22/21 12:00 18 102/62 08/22/21 11:30 36.2 08/21/21 11:42 98 Physical Exam General: Alert. No acute distress. Eye: No xanthelasma. HENT: Normocephalic. Neck: Jugular venous pressure does not appear elevated. Respiratory: Lungs are clear to auscultation. Respirations are non-labored. Breath sounds are equal. Symmetrical chest wall expansion. Cardiovascular: Normal rate. Irregular rhythm. No murmur. No gallop. No edema. R ight foot transmetatarsal amputation. Gastrointestinal: Soft. Normal bowel sounds. Skin: Warm. Dry. Neurologic: Alert and oriented to person, place, time. Cranial nerves 3-11 grossly intact. Psychiatric: Cooperative. Appropriate mood & affect. Labs Laboratory Tests Test 08/22/21 04:15 Range/Units White Blood Count 18.7 H 4.3-11.0 10^3/uL Red Blood Count 5.06 4.30-5.52 10^6/uL Hemoglobin 13.1 L 13.3-17.7 g/dL Hematocrit 44 40-54 % Mean Corpuscular Volume 87 80-99 fL Mean Corpuscular Hemoglobin 26 25-34 pg Mean Corpuscular Hemoglobin Concent 30 L 32-36 g/dL Red Cell Distribution Width 15.0 H 10.0-14.5 % Platelet Count 178 130-400 10^3/uL Mean Platelet Volume 10.5 9.0-12.2 fL Immature Granulocyte % (Auto) 1 % Neutrophils (%) (Auto) 82 H 42-75 % Lymphocytes (%) (Auto) 8 L 12-44 % Monocytes (%) (Auto) 9 0-12 % Eosinophils (%) (Auto) 1 0-10 % Basophils (%) (Auto) 0 0-10 % Neutrophils # (Auto) 15.3 H 1.8-7.8 10^3/uL Lymphocytes # (Auto) 1.4 1.0-4.0 10^3/uL Monocytes # (Auto) 1.6 H 0.0-1.0 10^3/uL Eosinophils # (Auto) 0.2 0.0-0.3 10^3/uL Basophils # (Auto) 0.1 0.0-0.1 10^3/uL Immature Granulocyte # (Auto) 0.2 H 0.0-0.1 10^3/uL Sodium Level 141 135-145 MMOL/L Potassium Level 3.6 3.6-5.0 MMOL/L Chloride Level 100 98-107 MMOL/L Carbon Dioxide Level 28 21-32 MMOL/L Anion Gap 13 5-14 MMOL/L Blood Urea Nitrogen 27 H 7-18 MG/DL Creatinine 1.27 0.60-1.30 MG/DL Estimat Glomerular Filtration Rate 55 BUN/Creatinine Ratio 21 Glucose Level 124 H 70-105 MG/DL Calcium Level 8.2 L 8.5-10.1 MG/DL Phosphorus Level 3.8 2.3-4.7 MG/DL Magnesium Level 1.8 1.6-2.4 MG/DL Vancomycin Level Trough 28.4 *H 10.0-20.0 UG/ML Diagnosis/Problems Diagnosis/Problems (1) Acute on chronic heart failure with preserved ejection fraction (HFpEF) Assessment & Plan: He probably has some decompensation of his heart failure. He is on intravenous Lasix twice a day which I would continue for at least the next 24-48 hours. Although his breathing is better today, his chest x-ray appears to possibly be worse. We need to watch his renal function closely. I will obtain another follow-up chest x-ray tomorrow. (2) Persistent atrial fibrillation Assessment & Plan: He remains in atrial fibrillation. He may have missed 1 dose of Xarelto but otherwise states he has been compliant with this medication. On the other hand, due to his poor oral intake prior to admission, he may not have been absorbing the medication well and therefore the Xarelto might not have been fully effective. He has persistent tachycardia which may be contributing to his decompensated heart failure. I recommend we continue with the oral metoprolol. He had been on diltiazem at home but had gastrointestinal side effects from this. He is currently on enoxaparin for anticoagulation. At some point, we will need to change this back over to oral anticoagulation. He will eventually need to be started on sotalol to help maintain sinus rhythm. However, in light of these acute events with questionable embolism to his right foot, he is not a good candidate to try and cardiovert at this point in time. Unfortunately, he did not tolerate a transesophageal echocardiogram earlier during this admission. (3) Troponin level elevated Assessment & Plan: This is most likely a type II non-ST elevation myocardial infarction due to persistent tachycardia from the atrial fibrillation and dec ompensated heart failure. (4) Gangrene of toe of right foot Assessment & Plan: Given his persistent atrial fibrillation and the fact that he does not have any significant peripheral arterial disease of the right lower extremity, this raises a concern for an embolic event. 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 (5) Deep vein thrombosis, upper right extremity Assessment & Plan: It is not entirely clear to me why the patient would have developed this condition since he has been taking Xarelto for atrial fibrillation tablet for the fact that he may have had poor absorption of the medication as outlined above. For the time being, I recommend he continue on subcutaneous enoxaparin. (6) Pulmonary hypertension Assessment & Plan: He has persistently elevated pulmonary artery pressure of unclear etiology. I suspect this may be multifactorial in part due to the chronic heart failure. This will need to be followed longitudinally. (7) Primary hypertension Assessment & Plan: I have started him on metoprolol to help with rate control for the atrial fibrillation. His blood pressure have been low at times and metoprolol has been held until later in the day. (8) Mixed hyperlipidemia Assessment & Plan: He has reported history of hyperlipidemia but has not been o n statin medication. I will plan to follow this as an outpatient. (9) Mitral regurgitation Assessment & Plan: Today's echocardiogram again only shows mild mitral regurgitation. This should not be contributing to his symptoms. (10) Dysphagia Assessment & Plan: I have placed an order to ask the surgeon to evaluate his dysphagia. JUAN ANTONIO HILL JR, MD Aug 22, 2021 12:40
--- NOTE | 2021-08-22 13:34 | Occupational Therapy Eval ---
OT Evaluation-General/PLF Medical Diagnosis Admission Date Aug 19, 2021 at 18:12 Medical Diagnosis: right transmetatarsal amputation Onset Date: Aug 21, 2021 Therapy Diagnosis Therapy Diagnosis: Impaired balance, endurance, strength, adls, iadls Precautions Precautions/Isolations: Fall Prevention, Standard Precautions Weight Bear Status Weight Bearing Restriction: Partial Weight Bearing Location Restriction: RT FOOT 50% WB on heel only-RLE Referral Physician: Ольга Referral Reason: Evaluation/Treatment Medical History Pertinent Medical History: Atrial Fib, Heart Failure Current History s/p R transmetatarsal amputation. Pt reports that he lives alone in a single story home. He has had increased difficulty with adls the last 4 months (due to increased weakness) and has had to have assistance from his sons who live close by. He hasn't taken a shower in over 4 months and now only performs sponge baths. His sons perform all iadls and provide transportation. He was using a cane prior to admission. Social History Home: Single Level Current Living Status: Alone Entry Into Home: Stairs Without Railing Steps Into Home: 1 ADL-Prior Level of Function SCALE: Activities may be completed with or without assistive devices. 6-Rzmuzlhhej-kftfjje completes the activity by him/herself with no assistance from a helper. 5-Set-up or Clean-up Assistance-helper sets up or cleans up; patient completes activity. Winona assists only prior to or following the activity. 4-Supervision or Touching Assistance-helper provides verbal cues and/or touching/steadying and/or contact guard assistance as patient completes activity. Assistance may be provided throughout the activity or intermittently. 3-Partial/Moderate Assistance-helper does LESS THAN HALF the effort. Winona lifts, holds or supports trunk or limbs, but provides less than half the effort. 2-Substantial/Maximal Assistance-helper does MORE THAN HALF the effort. Winona lifts or holds trunk or limbs and provides more than half the effort. 2-Zcpfaervo-ebxzch does ALL the effort. Patient does none of the effort to complete the activity. Or, the assistance of 2 or more helpers is required for the patient to complete the activity. If activity was not attempted, code reason: 7-Patient Refused. 9-Not Applicable-not attempted and the patient did not perform the activity before the current illness, exacerbation or injury. 10-Not Attempted due to Environmental Limitations-(lack of equipment, weather restraints, etc.). 88-Not Attempted due to Medical Conditions or Safety Concerns. Self Care: Needed Some Help Functional Cognition: Independent DME/Equipment: Bath Chair, Shower Drive Self: No OT Current Status Subjective Pt agreeable to evaluation. Appearance Left sitting EOB, RN notified. All needs within reach at OT departure. Mental Status/Objective Patient Orientation: Person, Place, Situation Attachments: IV, Oxygen, Telemetry Current Hand Dominance: Right Upper Extremity ROM Bilateral shoulder: impaired. R/L shoulder: ~90 degrees AROM, ~145 degrees PROM Pt reports range limited by pain in back. R arm/hand with severe edema (d/t DVT) limiting ROM in elbow/wrist/hand. ADL-Treatment Eating (QC): 5 Oral Hygiene (QC): 4 Lower Body Dressing (QC): 2 On/Off Footwear (QC): 3 Toileting Hygiene (QC): 2 Pt sitting EOB at OT arrival. Able to don/doff L sock with use of cross over method and extra time/effort secondary to impaired coordination in R hand (secondary to edema). Unable to reach L foot to don/doff offloading boot. Sit<> stand: max a with elevated bed. Pt only able to tolerate standing for short time due to LE weakness and having a difficult time maintaining 50% WB on heel only. At this time, he would require assist with standing balance and clothing management pre/post toileting. Once sitting, pt able to scoot hips towards HOB without assistance. Education OT Patient Education: Disease process, Energy conservation, Modified ADL techniques, Progress toward Goal/Update tx plan, Purpose of tx/functional activities, Reviewed precautions, Safety issues, Transfer techniques Teaching Recipient: Patient Teaching Methods: Discussion Response to Teaching: Verbalize Understanding, Reinforcement Needed OT Residential Goals Residential Goals Time Frame: Sep 05, 2021 Eating (QC): 5 Oral Hygiene (QC): 5 Toileting Hygiene (QC): 4 Shower/Bathe Self (QC): 4 Upper Body Dressing (QC): 4 Lower Body Dressing (QC): 4 On/Off Footwear (QC): 4 1=Demonstrate adherence to instructed precautions during ADL tasks. 2=Patient will verbalize/demonstrate understanding of assistive devices/modifications for ADL. 3=Patient will improve strength/tolerance for activity to enable patient to perform ADL's. OT Education/Plan Problem List/Assessment Assessment: Decreased Activ Tolerance, Decreased UE Strength, Dependent Transfers, Edema, Impaired Funct Balance, Impaired I ADL's, Impaired Self-Care Skills, Restricted Funct UE ROM Discharge Recommendations Plan/Recommendations: Continue POC Therapy Discharge Recommendati: Post Acute OT Treatment Plan/Plan of Care Treatment,Training & Education: Yes Patient would benefit from OT for education, treatment and training to promote independence in ADL's, mobility, safety and/or upper extremity function for ADL's. Plan of Care: ADL Retraining, Functional Mobility, Orthotic Fitting/Training, UE Funct Exercise/Act Treatment Duration: Sep 05, 2021 Frequency: 3 times per week Estimated Hrs Per Day: .25 hour per day Rehab Potential: Fair 3-5x/week Time/GCodes Start Time: 13:10 Stop Time: 13:23 Total Time Billed (hr/min): 13 Billed Treatment Time 1 visit Calli Kimbrough OT Aug 22, 2021 13:34
--- NOTE | 2021-08-22 14:22 | Progress Note ---
Subjective Date Seen by a Provider: Aug 22, 2021 Time Seen by a Provider: 14:00 Subjective/Events-last exam doing ok. pain controlled. glo PT. states some hx of dysphagia however not severe. Focused Exam Lactate Level 08/19/21 20:40: Lactic Acid Level 2.30*H 08/20/21 03:15: Lactic Acid Level 2.34*H 08/20/21 05:29: Lactic Acid Level 1.55 Objective Exam Vital Signs Date Time Temp Pulse Resp B/P (MAP) Pulse Ox O2 Delivery O2 Flow Rate FiO2 08/22/21 13:00 99 08/22/21 12:11 100 Nasal Cannula 3.00 08/22/21 12:00 111 18 102/62 95 Nasal Cannula 3.00 08/22/21 11:30 36.2 08/22/21 11:00 140 22 100/61 100 Nasal Cannula 3.00 08/22/21 10:00 106 19 108/64 96 Nasal Cannula 3.00 08/22/21 09:00 126 16 102/66 95 Nasal Cannula 3.00 08/22/21 08:50 100 Nasal Cannula 3.00 08/22/21 08:00 112 24 105/67 100 Nasal Cannula 3.00 08/22/21 07:56 35.9 08/22/21 07:00 112 22 107/61 100 Nasal Cannula 3.00 08/22/21 07:00 111 08/22/21 06:00 133 32 92/49 100 Nasal Cannula 3.00 08/22/21 05:00 133 80/63 96 Nasal Cannula 3.00 08/22/21 04:00 98 Nasal Cannula 3.00 08/22/21 04:00 121 103/81 100 Nasal Cannula 3.00 08/22/21 03:00 109 37 92/62 85 Nasal Cannula 3.00 08/22/21 02:00 112 105/67 98 Nasal Cannula 3.00 08/22/21 01:00 89 17 101/76 99 Nasal Cannula 3.00 08/22/21 00:55 101 08/22/21 00:00 94 23 86/63 98 Nasal Cannula 3.00 08/21/21 23:59 95 Nasal Cannula 3.00 08/21/21 23:00 101 20 100/70 100 Nasal Cannula 3.00 08/21/21 22:00 97 101/60 82 Nasal Cannula 3.00 08/21/21 21:02 98 Nasal Cannula 2.00 08/21/21 21:00 114 89/62 97 Nasal Cannula 3.00 08/21/21 20:00 95 9 92/70 97 Nasal Cannula 3.00 08/21/21 20:00 95 Nasal Cannula 3.00 08/21/21 19:28 36.3 08/21/21 19:00 110 97/60 99 Nasal Cannula 3.00 08/21/21 19:00 113 08/21/21 18:00 104 21 111/77 100 Nasal Cannula 3.00 08/21/21 17:00 96 27 106/70 98 Nasal Cannula 3.00 08/21/21 16:30 95 Nasal Cannula 3.00 08/21/21 16:00 99 15 104/70 96 Nasal Cannula 3.00 08/21/21 15:28 120 08/21/21 15:20 Nasal Cannula 3.00 08/21/21 15:20 Nasal Cannula 3.00 08/21/21 15:10 37.0 16 92/70 (77) 98 Nasal Cannula 3 08/21/21 15:00 14 85/68 (74) 98 Nasal Cannula 3 08/21/21 15:00 109/67 08/21/21 14:55 Nasal Cannula 3 08/21/21 14:50 15 90/67 (75) 100 OxyMask 10 08/21/21 14:40 14 60/40 (47) 99 OxyMask 10 08/21/21 14:33 OxyMask 10 08/21/21 14:33 36.1 16 93/51 (65) 100 OxyMask 10 I & O 08/22/21 07:00 Intake Total 415 ml Output Total 1375 ml Balance -960 ml Capillary Refill : Less Than 3 Seconds General Appearance: No Apparent Distress HEENT: PERRL/EOMI Neck: Full Range of Motion Respiratory: Chest Non Tender, Lungs Clear, Normal Breath Sounds Gastrointestinal: normal bowel sounds, non tender, soft Extremity: Slow Capillary Refill Neurologic/Psychiatric: Alert, Oriented x3 Skin: Normal Color Lymphatic: No Adenopathy Results Lab Laboratory Tests 08/22/21 04:15: White Blood Count 18.7H, Red Blood Count 5.06, Hemoglobin 13.1L, Hematocrit 44, Mean Corpuscular Volume 87, Mean Corpuscular Hemoglobin 26, Mean Corpuscular Hemoglobin Concent 30L, Red Cell Distribution Width 15.0H, Platelet Count 178, Mean Platelet Volume 10.5, Immature Granulocyte % (Auto) 1, Neutrophils (%) (Auto) 82H, Lymphocytes (%) (Auto) 8L, Monocytes (%) (Auto) 9, Eosinophils (%) (Auto) 1, Basophils (%) (Auto) 0, Neutrophils # (Auto) 15.3H, Lymphocytes # (Auto) 1.4, Monocytes # (Auto) 1.6H, Eosinophils # (Auto) 0.2, Basophils # (Auto) 0.1, Immature Granulocyte # (Auto) 0.2H, Sodium Level 141, Potassium Level 3.6, Chloride Level 100, Carbon Dioxide Level 28, Anion Gap 13, Blood Urea Nitrogen 27H, Creatinine 1.27, Estimat Glomerular Filtration Rate 55, BUN/Creatinine Ratio 21, Glucose Level 124H, Calcium Level 8.2L, Phosphorus Level 3.8, Magnesium Level 1.8, Vancomycin Level Trough 28.4*H Microbiology 08/19/21 Blood Culture - Preliminary, Resulted Gram Negative Ramez Assessment/Plan Assessment/Plan Assess & Plan/Chief Complaint s/p right TMA. hx of dysphagia/GERD however not severe. will plan on EGD with possible dilatation once a-fib and BP more stable. AGUSTÍN DUQUE MD Aug 22, 2021 14:22
[2021-08-22] MEDS ORDERED: NS (IVPB) 250 ML IV ONE ×2 (14:30)
[2021-08-22] MEDS: dilTIAZem DRIP PRE-MIX 125 ML IV SCH (21:13)
[2021-08-23] MEDS: CEFEPIME INJECTION 1,000 MG in NS (IVPB) 50 ML IV SCH ×4 (02:37→23:14)
[2021-08-23] MEDS: HYDROcodone/APAP 7.5 MG/325 MG (LORTAB, LORCET PLUS) TABLET PO PRN ×2 (05:10→08:08)
[2021-08-23 05:23] LABS: BASOPHILS # (AUTO) 0.1 10^3/uL (0.0-0.1); BASOPHILS % (AUTO) 0 % (0-10); EOSINOPHILS # (AUTO) 0.1 10^3/uL (0.0-0.3); EOSINOPHILS % (AUTO) 0 % (0-10); HEMATOCRIT 45 % (40-54); HEMOGLOBIN 13.8 g/dL (13.3-17.7); LYMPHOCYTES # (AUTO) 1.8 10^3/uL (1.0-4.0); LYMPHOCYTES % (AUTO) 8 % (12-44); MEAN CORPUSCULAR HEMOGLOBIN 27 pg (25-34); MEAN CORPUSCULAR HGB CONC 31 g/dL (32-36); MEAN CORPUSCULAR VOLUME 87 fL (80-99); MEAN PLATELET VOLUME 10.9 fL (9.0-12.2); MONOCYTES # (AUTO) 1.6 10^3/uL (0.0-1.0); MONOCYTES % (AUTO) 7 % (0-12); NEUTROPHILS # (AUTO) 19.5 10^3/uL (1.8-7.8); NEUTROPHILS % (AUTO) 84 % (42-75); PLATELET COUNT 220 10^3/uL (130-400); WHITE BLOOD COUNT 23.3 10^3/uL (4.3-11.0)
[2021-08-23] MEDS: MAGNESIUM 1 GM/100 ML IVPB 100 ML IV SCH (05:53)
[2021-08-23] MEDS: POTASSIUM CL 10MEQ/50ML IVPB 50 ML IV SCH (06:00)
--- NOTE | 2021-08-23 06:18 | Progress Note - Hospitalist ---
Subjective HPI/CC On Admission Date Seen by Provider: Aug 23, 2021 Time Seen by Provider: 11:00 CC: SOB from heart failure HPI: This is a 76yoWM who has a PMH of CHF managed by Dr. Roberts who presents from [facility] with SOB. Pt was placed in the ICU with IV diuresis. Right arm DVT noted on ultrasound, B/L lower extremities negative for DVT but right foot had dry gangrene that Dr. Ford will address. He will have MARISA today and he was placed on Vancomycin and Cefepime. His potassium is 3 being supplemented and his WBC is 15. At this current time pt denies any new issues and he was placed on Lovenox therapeutic dose. Subjective/Events-last exam Patient getting more complicated Central line will be placed by Dr. Crabtree Right arm still edematous due to DVT Patient still wants to be full code but he is becoming more complicated by the day Patient appears to be very thin and debilitated Review of Systems General: Fatigue, Malaise Pulmonary: Dyspnea Objective Exam Vital Signs Vital Signs Date Time Temp Pulse Resp B/P (MAP) Pulse Ox O2 Delivery O2 Flow Rate FiO2 08/23/21 15:16 97 Nasal Cannula 2.00 08/23/21 14:00 90 20 08/23/21 12:00 36.1 08/23/21 12:00 115/56 08/23/21 09:34 28 Capillary Refill : Less Than 3 Seconds General Appearance: Anxious, Chronically ill, Mild Distress, Thin Respiratory: No Accessory Muscle Use, No Respiratory Distress, Decreased Breath Sounds Cardiovascular: Irregularly Irregular, Tachycardia Neurologic/Psychiatric: Alert, Oriented x3, No Motor/Sensory Deficits, Normal Mood/Affect Results/Procedures Lab Laboratory Tests 08/23/21 05:10 08/23/21 06:34 Patient resulted labs reviewed. Assessment/Plan Assessment and Plan Assess & Plan/Chief Complaint Assessment: A.fib with RVR -Cardilogy consulted -Diltiazem being given along with digoxin today -Has received Echo and peripheral US -MARISA unsuccessful due to inability to progress scope consulted Dr. FORD for esophageal stricture -Continue to monitor Sepsis -ABX -monitor pt closely Right arm DVT -Anticoagulation -Continue to monitor Gangrene/Osteomyelitis -Surgery consulted -Continuing abx -Status post right metatarsal amputation Hypokalemia Plan: Surgery today A. fib and congestive heart failure cardiology manages 08/22/2021: Supportive care Anticoagulation Appreciate general surgery 08/23/2021: Central line Anticoagulation Rate control Critical Care Critically Ill Patient VLAD CHAMBERS DO Aug 23, 2021 06:18
[2021-08-23] MEDS: FUROSEMIDE 40 MG/4 ML INJ (LASIX) IVP SCH (06:30)
[2021-08-23] MEDS: KCL 20 MEQ TAB (K-DUR) PO SCH (06:31)
[2021-08-23] MEDS: ESMOLOL DRIP PREMIX 250 ML IV SCH (06:31)
[2021-08-23 06:58] LABS: CALCIUM 8.7 MG/DL (8.5-10.1); CREATININE SERUM 1.64 MG/DL (0.60-1.30); MAGNESIUM 1.9 MG/DL (1.6-2.4); PHOSPHORUS 3.9 MG/DL (2.3-4.7)
[2021-08-23] MEDS ORDERED: LACTATED RINGERS 1,000 ML IV ONE (08:00)
[2021-08-23] MEDS ORDERED: DIGOXIN 0.25 MG/ML (LANOXIN) 2 ML AMP IV NR (08:00)
[2021-08-23] MEDS: ENOXAPARIN 80 MG/0.8 ML (LOVENOX) SYR SC SCH (08:07)
[2021-08-23] MEDS: D5 LR IV SOLUTION 1,000 ML IV SCH ×2 (08:07→23:14)
[2021-08-23] MEDS: morphine INJ 4 MG/ML 1 ML (VIAL/SYRINGE) IV PRN ×2 (08:08→10:32)
[2021-08-23] MEDS: SENNA W/DOCUSATE (SENOKOT S) TABLET PO SCH ×2 (08:08→23:15)
--- NOTE | 2021-08-23 09:07 | Cardiology Progress Note ---
Progress Note-Cardiology Events since last exam Date Seen by Provider: Aug 23, 2021 Time Seen by Provider: 09:02 Events since last exam I am following him for heart failure and atrial fibrillation. His blood pre ssure has gone down overnight. eICU is ordered a bolus of IV fluids. eICU also ordered another dose of intravenous digoxin. His breathing is improving. He denies chest discomfort, palpitations, or syncope. He has persistent, mild bilateral ankle edema. The pain in his right foot at the site of the transmetatarsal amputation is better. Certain portions of this document may have been dictated utilizing voice recognition technology. Inherent to this technology, typographical and grammatical errors may exist. As much as I am diligent to identify and correct these mistakes, some errors may remain in the document. Vitals Last set of Vitals Signs Vital Signs 08/21/21 08/23/21 08/23/21 11:42 06:00 07:49 Temp 36.2 Pulse 110 Resp 18 B/P (MAP) 97/35 Pulse Ox 95 O2 Delivery Nasal Cannula O2 Flow Rate 2.00 FiO2 98 Labs Labs Laboratory Tests 08/23/21 05:10 08/23/21 06:34 Exam Vital Signs Vital Signs Date Time Temp Pulse Resp B/P (MAP) Pulse Ox O2 Delivery O2 Flow Rate FiO2 08/23/21 07:49 36.2 08/23/21 06:00 110 18 97/35 95 Nasal Cannula 2.00 08/21/21 11:42 98 Physical Exam General: Alert. No acute distress. He appears chronically ill. Eye: No xanthelasma. HENT: Normocephalic. Neck: Jugular venous pressure does not appear elevated. Respiratory: Lungs are clear to auscultation. Respirations are non-labored. Breath sounds are equal. Symmetrical chest wall expansion. Cardiovascular: Tachycardia with irregular rhythm. No murmur. No gallop. Trace bilateral pretibial edema. Right transmetatarsal amputation is bandaged. Left foot is cool. Gastrointestinal: Soft. Normal bowel sounds. Skin: Warm. Dry. Neurologic: Alert and oriented to person, place, time. Cranial nerves 3-11 grossly intact. Psychiatric: Cooperative. Appropriate mood & affect. Labs Laboratory Tests Test 08/23/21 05:10 08/23/21 06:34 Range/Units White Blood Count 23.3 H 4.3-11.0 10^3/uL Red Blood Count 5.21 4.30-5.52 10^6/uL Hemoglobin 13.8 13.3-17.7 g/dL Hematocrit 45 40-54 % Mean Corpuscular Volume 87 80-99 fL Mean Corpuscular Hemoglobin 27 25-34 pg Mean Corpuscular Hemoglobin Concent 31 L 32-36 g/dL Red Cell Distribution Width 15.3 H 10.0-14.5 % Platelet Count 220 130-400 10^3/uL Mean Platelet Volume 10.9 9.0-12.2 fL Immature Granulocyte % (Auto) 1 % Neutrophils (%) (Auto) 84 H 42-75 % Lymphocytes (%) (Auto) 8 L 12-44 % Monocytes (%) (Auto) 7 0-12 % Eosinophils (%) (Auto) 0 0-10 % Basophils (%) (Auto) 0 0-10 % Neutrophils # (Auto) 19.5 H 1.8-7.8 10^3/uL Lymphocytes # (Auto) 1.8 1.0-4.0 10^3/uL Monocytes # (Auto) 1.6 H 0.0-1.0 10^3/uL Eosinophils # (Auto) 0.1 0.0-0.3 10^3/uL Basophils # (Auto) 0.1 0.0-0.1 10^3/uL Immature Granulocyte # (Auto) 0.2 H 0.0-0.1 10^3/uL Sodium Level 143 135-145 MMOL/L Potassium Level 4.0 3.6-5.0 MMOL/L Chloride Level 99 98-107 MMOL/L Carbon Dioxide Level 26 21-32 MMOL/L Anion Gap 18 H 5-14 MMOL/L Blood Urea Nitrogen 34 H 7-18 MG/DL Creatinine 1.64 H 0.60-1.30 MG/DL Estimat Glomerular Filtration Rate 41 BUN/Creatinine Ratio 21 Glucose Level 106 H 70-105 MG/DL Calcium Level 8.7 8.5-10.1 MG/DL Phosphorus Level 3.9 2.3-4.7 MG/DL Magnesium Level 1.9 1.6-2.4 MG/DL Diagnosis/Problems Diagnosis/Problems (1) Acute on chronic heart failure with preserved ejection fraction (HFpEF) Assessment & Plan: He probably has some decompensation of his heart failure. His breathing is better today but he is having low blood pressures. His creatinine also jumped over the past 24 hours. I will stop the intravenous furosemide. After the bolus of IV fluids, this should be discontinued. We need to watch his renal function closely. I have ordered a follow-up chest x-ray for today. (2) Persistent atrial fibrillation Assessment & Plan: He remains in atrial fibrillation. He may have missed 1 dose of Xarelto but otherwise states he has been compliant with this medication. On the other hand, due to his poor oral intake prior to admission, he may not have been absorbing the medication well and therefore the Xarelto might not have been fully effective. He has persistent tachycardia which may be contributing to his decompensated heart failure. I recommend we continue with the oral metoprolol but unfortunately, this has been intermittently held due to low blood pressures. He had been on diltiazem at home but had gastrointestinal side effects from this. He is currently on enoxaparin for anticoagulation. I will change the enoxaparin over to apixaban. This does not require food for absorption. He will eventually need to be started on sotalol to help maintain sinus rhythm. However, in light of these acute events with questionable embolism to his right foot, he is not a good candidate to try and cardiovert at this point in time. Unfortunately, he did not tolerate a transesophageal ech ocardiogram earlier during this admission. I will start him on low-dose oral digoxin to help with rate control. We will need to be cautious with this in light of his impaired renal function. (3) Acute kidney injury superimposed on chronic kidney disease Assessment & Plan: This was most likely related to the intravenous furosemide which I have now stopped. (4) Troponin level elevated Assessment & Plan: This is most likely a type II non-ST elevation myocardial infarction due to persistent tachycardia from the atrial fibrillation and decompensated heart failure. (5) Gangrene of toe of right foot Assessment & Plan: Given his persistent atrial fibrillation and the fact that he does not have any significant peripheral arterial disease of the right lower extremity, this raises a concern for an embolic event. He had a right transmetatarsal amputation during this admission. (6) Deep vein thrombosis, upper right extremity Assessment & Plan: It is not entirely clear to me why the patient would have developed this condition since he has been taking Xarelto for atrial fibrillation tablet for the fact that he may have had poor absorption of the medication as outlined above. For the time being, I recommend he continue on subcutaneous enoxaparin. (7) Pulmonary hypertension Assessment & Plan: He has persistently elevated pulmonary artery pressure of unclear etiology. I suspect this may be multifactorial in part due to the chronic heart failure. This will need to be followed longitudinally. (8) Primary hypertension Assessment & Plan: I have started him on metoprolol to help with rate control for the atrial fibrillation. His blood pressure have been low at times and metoprolol has been intermittently held as outlined above (9) Mixed hyperlipidemia Assessment & Plan: He has reported history of hyperlipidemia but has not been on statin medication. I will plan to follow this as an outpatient. (10) Mitral regurgitation Assessment & Plan: His echocardiogram from this admission again only showed mild mitral regurgitation. This should not be contributing to his symptoms. (11) Dysphagia Assessment & Plan: The surgeon wants to hold off on upper endoscopy until he is more medically stable. JUAN ANTONIO HILL JR, MD Aug 23, 2021 09:07
[2021-08-23 09:34] VITALS: BP 97/35
--- NOTE | 2021-08-23 10:13 | Progress Note ---
Subjective Date Seen by a Provider: Aug 23, 2021 Time Seen by a Provider: 08:00 Subjective/Events-last exam doing ok. no fever/chills. rate still irregular. wound clean/dry. Objective Exam Vital Signs Date Time Temp Pulse Resp B/P (MAP) Pulse Ox O2 Delivery O2 Flow Rate FiO2 08/23/21 09:34 36.2 104 97 28 08/23/21 09:22 97 Nasal Cannula 2.00 08/23/21 09:21 100 Nasal Cannula 4.00 08/23/21 09:00 90 14 110/73 95 Nasal Cannula 2.00 08/23/21 08:00 131 7 106/74 85 Nasal Cannula 2.00 08/23/21 07:49 36.2 08/23/21 07:00 140 08/23/21 07:00 140 12 74/48 90 Nasal Cannula 2.00 08/23/21 06:00 110 18 97/35 95 Nasal Cannula 2.00 08/23/21 05:00 147 18 115/102 80 Nasal Cannula 2.00 08/23/21 04:28 36.1 08/23/21 04:00 129 20 109/98 90 Nasal Cannula 2.00 08/23/21 04:00 95 Nasal Cannula 2.00 08/23/21 03:00 18 102/63 95 Nasal Cannula 2.00 08/23/21 02:00 114 20 101/62 96 Nasal Cannula 2.00 08/23/21 01:30 Nasal Cannula 2.00 08/23/21 01:00 91 19 91/65 96 Nasal Cannula 3.00 08/23/21 01:00 110 08/23/21 00:05 36.0 Nasal Cannula 3.00 08/23/21 00:00 105 101/65 100 Nasal Cannula 4.00 08/23/21 00:00 95 Nasal Cannula 3.00 08/22/21 23:00 84 95/65 100 Nasal Cannula 4.00 08/22/21 22:00 98 88/58 100 Nasal Cannula 4.00 08/22/21 21:00 106 18 110/89 100 Nasal Cannula 4.00 08/22/21 20:45 36.0 08/22/21 20:00 138 19 98/63 100 Nasal Cannula 4.00 08/22/21 20:00 36.0 08/22/21 20:00 95 Nasal Cannula 4.00 08/22/21 19:00 Nasal Cannula 4.00 08/22/21 19:00 120 08/22/21 19:00 138 23 82/51 97 Nasal Cannula 4.00 08/22/21 18:44 96 Nasal Cannula 4.00 08/22/21 18:00 112 20 101/67 100 Nasal Cannula 3.00 08/22/21 17:00 90 18 107/68 100 Nasal Cannula 3.00 08/22/21 16:08 36.1 08/22/21 16:07 100 Nasal Cannula 3.00 08/22/21 16:00 125 20 104/66 100 Nasal Cannula 3.00 08/22/21 15:00 129 24 90/64 97 Nasal Cannula 3.00 08/22/21 14:00 133 18 98/64 100 Nasal Cannula 3.00 08/22/21 13:00 99 08/22/21 13:00 105 20 109/72 100 Nasal Cannula 3.00 08/22/21 12:11 100 Nasal Cannula 3.00 08/22/21 12:00 111 18 102/62 95 Nasal Cannula 3.00 08/22/21 11:30 36.2 08/22/21 11:00 140 22 100/61 100 Nasal Cannula 3.00 I & O 08/23/21 07:00 Intake Total 1940 ml Output Total 650 ml Balance 1290 ml Capillary Refill : Less Than 3 Seconds General Appearance: No Apparent Distress HEENT: PERRL/EOMI Neck: Full Range of Motion Respiratory: Chest Non Tender, Lungs Clear Cardiovascular: Regular Rate, Rhythm Gastrointestinal: normal bowel sounds, non tender, soft Extremity: Normal Capillary Refill Neurologic/Psychiatric: Alert, Oriented x3 Skin: Normal Color Lymphatic: No Adenopathy Results Lab Laboratory Tests 08/23/21 05:10: White Blood Count 23.3H, Red Blood Count 5.21, Hemoglobin 13.8, Hematocrit 45, Mean Corpuscular Volume 87, Mean Corpuscular Hemoglobin 27, Mean Corpuscular He moglobin Concent 31L, Red Cell Distribution Width 15.3H, Platelet Count 220, Mean Platelet Volume 10.9, Immature Granulocyte % (Auto) 1, Neutrophils (%) (Auto) 84H, Lymphocytes (%) (Auto) 8L, Monocytes (%) (Auto) 7, Eosinophils (%) (Auto) 0, Basophils (%) (Auto) 0, Neutrophils # (Auto) 19.5H, Lymphocytes # (Auto) 1.8, Monocytes # (Auto) 1.6H, Eosinophils # (Auto) 0.1, Basophils # (Auto) 0.1, Immature Granulocyte # (Auto) 0.2H 08/23/21 06:34: Sodium Level 143, Potassium Level 4.0, Chloride Level 99, Carbon Dioxide Level 26, Anion Gap 18H, Blood Urea Nitrogen 34H, Creatinine 1.64H, Estimat Glomerular Filtration Rate 41, BUN/Creatinine Ratio 21, Glucose Level 106H, Calcium Level 8.7, Phosphorus Level 3.9, Magnesium Level 1.9 Microbiology 08/19/21 Blood Culture - Preliminary, Resulted Gram Negative Ramez Assessment/Plan Assessment/Plan Assess & Plan/Chief Complaint s/p right TMA. PT with partial wt bearing. hx of dysphagia/GERD however not severe. will plan on EGD with possible dilatation once a-fib and BP more stable. AGUSTÍN DUQUE MD Aug 23, 2021 10:13
--- NOTE | 2021-08-23 10:39 | Physical Therapy Progress Note ---
Therapy Progress Note Patient on hold today per nursing due to medical issues. ELSIE VANEGAS PT Aug 23, 2021 10:39
--- NOTE | 2021-08-23 11:08 | Occ Therapy Progress Note ---
Therapy Progress Note Patient on hold today per nursing due to medical issues, OT will attempt tx on Thursday08/26/21. YULIYA GARCIA OT Aug 23, 2021 11:08
[2021-08-23] MEDS: meTOproloL SUCCINATE 50 MG (TOPROL XL) TAB PO SCH (11:37)
[2021-08-23] MEDS: DIGOXIN 0.125 MG (LANOXIN) TAB PO SCH (11:37)
[2021-08-23] MEDS ORDERED: RT-ALBUTEROL/IPRATROPIUM 3 ML (DUONEB) VIAL INH PRN (12:00)
--- NOTE | 2021-08-23 12:20 | Diagnostic Imaging Report ---
Indication: Central line placement. Findings: Left subclavian catheter has its tip projecting over the upper SVC. There is no pneumothorax. Bilateral pleural fluid volumes greater left, showed mild increase from the comparison. Some increased central congestion and/or perihilar pneumonia. Impression: Increased pleural fluid and progressive perihilar airspace disease. Central line placed without complication or pneumothorax. Dictated by: Dictated on workstation # [id number]
--- NOTE | 2021-08-23 12:42 | OPERATIVE REPORT ---
DATE OF SERVICE: 08/23/2021 ADMITTING PHYSICIAN: Jolanta Ruggiero DO PREOPERATIVE DIAGNOSES: Atrial fibrillation with rapid ventricular response and hypotension, poor peripheral venous circulation. POSTOPERATIVE DIAGNOSES: Atrial fibrillation with rapid ventricular response and hypotension, poor peripheral venous circulation. PROCEDURE: Placement of left subclavian central venous catheter. SURGEON: Agustín Duque MD. ANESTHESIA: Local. ESTIMATED BLOOD LOSS: Minimal. FINDINGS: Catheter tip at superior vena caval -- right atrial junction. DISPOSITION: The patient tolerated the procedure well. INDICATIONS: The patient is a 76-year-old male known to us. He came in with a necrotic right forefoot requiring a full transmetatarsal amputation. He also came in with atrial fibrillation and rapid ventricular response. His blood pressure has been low due to this and will likely require vasopressors and will require a central venous catheter. DESCRIPTION OF PROCEDURE: The chest and neck were prepped and draped in standard surgical fashion. A 1% lidocaine was used to anesthetize the left subclavian region. The left subclavian vein was then cannulated with drawing of venous blood. Guidewire was inserted without any resistance. Cannulating needle removed and a skin incision made using 11 blade. A tract was then created using a venous dilator and through this opening, a triple lumen central venous catheter was placed over the guidewire using the Seldinger technique. Guidewire was removed and all three ports jayna venous blood and saline pushed in without any resistance. Catheter was then sutured to the skin using 3-0 silk interrupted sutures. Catheter was then cleaned and covered with Op-Site. The patient tolerated the procedure well. We will get a post-procedure chest x-ray. Job ID: [id number] DocumentID: [id number] Dictated Date: 08/23/2021 11:36:00 Lobby Porter Date: 08/23/2021 12:41:03 Dictated By: AGUSTÍN DUQUE MD
[2021-08-23] MEDS: RT-ALBUTEROL/IPRATROPIUM 3 ML (DUONEB) VIAL INH SCH ×3 (14:41→22:54)
[2021-08-23] MEDS: APIXABAN 5 MG (ELIQUIS) TABLET PO SCH ×2 (16:39→23:14)
[2021-08-23 17:52] LABS: HEMATOCRIT 39 % (40-54); HEMOGLOBIN 12.1 g/dL (13.3-17.7); MEAN CORPUSCULAR HEMOGLOBIN 26 pg (25-34); MEAN CORPUSCULAR HGB CONC 31 g/dL (32-36); MEAN CORPUSCULAR VOLUME 86 fL (80-99); MEAN PLATELET VOLUME 10.6 fL (9.0-12.2); PLATELET COUNT 194 10^3/uL (130-400)
[2021-08-23 18:02] LABS: POTASSIUM 3.8 MMOL/L (3.6-5.0)
[2021-08-23 18:08] LABS: CREATININE SERUM 1.62 MG/DL (0.60-1.30)
--- NOTE | 2021-08-23 18:25 | Tele-ICU Progress Note ---
Progress Note called by RN severe abd pain , tachycardia , hematuria repated labs - cbc bmp done - reviewed , lactate > [address] abd/pelcis - ? kidney stone ( dount ischenia - on eliquis , but it is on differential Focused Exam Lactate Level 08/23/21 17:40: Lactic Acid Level 2.43*H Height, Weight, BMI Height: '" Weight: lbs. oz. kg; 23.44 BMI Method: Lactic Acid Level Laboratory Tests Test 08/23/21 17:40 Lactic Acid Level 2.43 MMOL/L (0.50-2.00) *H SASKIA ALMAGUER MD Aug 23, 2021 18:25
[2021-08-23 18:51] LABS: ABG BASE EXCESS 5.4 MMOL/L (-2.5-2.5); ABG OXYGEN SATURATION 97 % (94-100); ABG PCO2 52 MMHG (35-45); ABG PH 7.38 (7.37-7.43); ABG PO2 83 MMHG (79-93); ABG TCO2 32.3 MMOL/L (21.0-31.0)
[2021-08-23 18:52] LABS: ALLENS TEST YES-POS; INSPIRED O2 5L; PATIENT TEMP 35.5; VENTILATOR NO
[2021-08-24] MEDS: RT-ALBUTEROL/IPRATROPIUM 3 ML (DUONEB) VIAL INH SCH ×6 (01:47→22:21)
[2021-08-24] MEDS: CEFEPIME INJECTION 1,000 MG in NS (IVPB) 50 ML IV SCH ×3 (03:38→17:40)
--- NOTE | 2021-08-24 03:52 | Tele-ICU Progress Note ---
Progress Note CT ABD/Pel completed and reviewed. Noted to have appearance of metastatic disease within the liver. No documentation of prior cancer. Patient is delirious and unable to contribute to the history. Head CT completed with ABD and negative. Will send CEA and CA 19-9 with AM labs. Hold off on PSA due to chacon. Will need further work up after stabilization of acute issues. Focused Exam Lactate Level 08/23/21 17:40: Lactic Acid Level 2.43*H 08/23/21 21:07: Lactic Acid Level 1.63 Height, Weight, BMI Height: '" Weight: lbs. oz. kg; 23.44 BMI Method: SARAH ROCK MD Aug 24, 2021 03:51
--- NOTE | 2021-08-24 04:50 | Diagnostic Imaging Report ---
PROCEDURE: CT head without contrast. TECHNIQUE: Multiple contiguous axial images were obtained through the brain without the use of intravenous contrast. Auto Exposure Controls were utilized during the CT exam to meet ALARA standards for radiation dose reduction. INDICATION: 76-year-old male, confusion. CORRELATION: None FINDINGS: There are diffuse atrophic changes with prominence of the ventricles and sulci. There are scattered areas of decreased attenuation, nonspecific but likely changes of chronic small vessel ischemic disease. There is otherwise normal brady-white differentiation. No abnormal areas of attenuation to suggest edema from ischemia. There is no midline shift or mass effect. No evidence for acute intracranial hemorrhage or abnormal extra-axial fluid collection. Bony calvarium is intact. Paranasal sinuses are clear. Mastoid air cells also appear clear. IMPRESSION: 1. No CT evidence for acute intracranial abnormality. 2. Age-related atrophic changes with changes of small vessel ischemic disease. Initial report was provided by Luis Enrique. Dictated by: Dictated on workstation # [id number]
--- NOTE | 2021-08-24 04:53 | Diagnostic Imaging Report ---
PROCEDURE: CT urinary tract, rule out kidney stone. TECHNIQUE: Multiple contiguous axial images were obtained through the abdomen and pelvis without the use of intravenous contrast. Auto Exposure Controls were utilized during the CT exam to meet ALARA standards for radiation dose reduction. INDICATION: 76-year-old male, abdominal pain, elevated lactate, hematuria. CORRELATION STUDY: None. FINDINGS: LOWER THORAX: Large bilateral pleural effusions with compressive atelectasis of the lower lobes. Heart size appears enlarged. LIVER: Multiple low-density masses throughout both lobes of the liver. GALLBLADDER: Not visualized but appears likely markedly contracted. SPLEEN: Unremarkable. PANCREAS: Unremarkable. ADRENAL GLANDS: Indeterminate 3 x 2 cm left adrenal gland mass. KIDNEYS: Normal configuration. No calcification or obstruction. ABDOMINAL AORTA: Moderate wall calcification. Suggested ectasia up to 2.8 cm. Prominent retroperitoneal, aortocaval lymph nodes measuring up to 3.1 x 2.1 cm. Enlarged bilateral iliac lymph nodes are also present left greater than right. GASTROINTESTINAL TRACT: No definitive evidence for obstruction. There is small abdominal and pelvic free fluid with generalized haziness of mesentery and subcutaneous edema compatible with anasarca. URINARY BLADDER: Decompressed around a Quiles catheter. REPRODUCTIVE: Unremarkable. OSSEOUS STRUCTURES: Mild to moderately advanced degenerative changes present. OTHER: None. IMPRESSION: 1. Large bilateral pleural effusions with associated compressive atelectasis of the lower lobes. 2. Generalized anasarca with 3rd spacing and [id number] ascites. 3. Findings highly worrisome for metastatic disease to the liver. There is pathologically enlarged abdominal pelvic lymphadenopathy likely related to metastasis as well. Initial report was provided by [facility]. Dictated by: Dictated on workstation # [id number]
[2021-08-24 06:05] LABS: BASOPHILS # (AUTO) 0.1 10^3/uL (0.0-0.1); BASOPHILS % (AUTO) 0 % (0-10); EOSINOPHILS % (AUTO) 0 % (0-10); HEMATOCRIT 40 % (40-54); HEMOGLOBIN 12.3 g/dL (13.3-17.7); LYMPHOCYTES # (AUTO) 1.1 10^3/uL (1.0-4.0); LYMPHOCYTES % (AUTO) 5 % (12-44); MEAN CORPUSCULAR HEMOGLOBIN 27 pg (25-34); MEAN CORPUSCULAR HGB CONC 31 g/dL (32-36); MEAN CORPUSCULAR VOLUME 86 fL (80-99); MEAN PLATELET VOLUME 10.4 fL (9.0-12.2); MONOCYTES # (AUTO) 1.3 10^3/uL (0.0-1.0); MONOCYTES % (AUTO) 5 % (0-12); NEUTROPHILS # (AUTO) 21.1 10^3/uL (1.8-7.8); NEUTROPHILS % (AUTO) 89 % (42-75); PLATELET COUNT 173 10^3/uL (130-400); WHITE BLOOD COUNT 23.7 10^3/uL (4.3-11.0)
--- NOTE | 2021-08-24 06:09 | Progress Note - Hospitalist ---
Subjective HPI/CC On Admission Date Seen by Provider: Aug 24, 2021 Time Seen by Provider: 10:00 CC: SOB from heart failure HPI: This is a 76yoWM who has a PMH of CHF managed by Dr. Roberts who presents from [facility] with SOB. Pt was placed in the ICU with IV diuresis. Right arm DVT noted on ultrasound, B/L lower extremities negative for DVT but right foot had dry gangrene that Dr. Duque will address. He will have MARISA today and he was placed on Vancomycin and Cefepime. His potassium is 3 being supplemented and his WBC is 15. At this current time pt denies any new issues and he was placed on Lovenox therapeutic dose. Subjective/Events-last exam Patient having a lot of issues Confusion prompted CT scans I did tell him that the CT scan of the liver appeared to be cancer metastasis Cancer work-up pending May need to do liver biopsy He has never had a colonoscopy Hypotension and rate control issues Patient very cachectic and depleted Review of Systems General: Fatigue, Malaise Focused Exam Lactate Level 08/23/21 17:40: Lactic Acid Level 2.43*H 08/23/21 21:07: Lactic Acid Level 1.63 Objective Exam Vital Signs Vital Signs Date Time Temp Pulse Resp B/P (MAP) Pulse Ox O2 Delivery O2 Flow Rate FiO2 08/24/21 17:00 90 18 119/63 95 High Flow N/C 6.00 08/24/21 16:00 36.5 08/23/21 09:34 28 Capillary Refill : Less Than 3 Seconds General Appearance: No Apparent Distress, WD/WN, Anxious, Chronically ill, Thin Respiratory: Lungs Clear, Normal Breath Sounds Cardiovascular: Regular Rate, Rhythm, Irregularly Irregular Results/Procedures Lab Laboratory Tests 08/23/21 17:40 08/24/21 05:55 Patient resulted labs reviewed. Assessment/Plan Assessment and Plan Assess & Plan/Chief Complaint Assessment: A.fib with RVR -Cardilogy consulted -Diltiazem being given along with digoxin today -Has received Echo and peripheral US -MARISA unsuccessful due to inability to progress scope consulted Dr. DUQUE for esophageal stricture -Continue to monitor Sepsis -ABX -monitor pt closely Right arm DVT -Anticoagulation -Continue to monitor Gangrene/Osteomyelitis -Surgery consulted -Continuing abx -Status post right metatarsal amputation Hypokalemia CT scan shows liver metastasis presumed colon cancer or lung cancer Plan: Surgery today A. fib and congestive heart failure cardiology manages 08/22/2021: Supportive care Anticoagulation Appreciate general surgery 08/23/2021: Central line Anticoagulation Rate control 08/24/2021: Cancer work-up Poor prognosis Will need pastoral care for advanced directive talk Critical Care Critically Ill Patient VLAD CHAMBERS DO Aug 24, 2021 06:09
[2021-08-24 06:44] LABS: POTASSIUM 3.9 MMOL/L (3.6-5.0)
[2021-08-24 06:45] LABS: CALCIUM 8.2 MG/DL (8.5-10.1)
[2021-08-24 06:47] LABS: TOTAL PROTEIN 5.5 GM/DL (6.4-8.2)
[2021-08-24 06:49] LABS: PHOSPHORUS 3.6 MG/DL (2.3-4.7)
[2021-08-24 06:50] LABS: CREATININE SERUM 1.66 MG/DL (0.60-1.30)
[2021-08-24 06:51] LABS: MAGNESIUM 1.8 MG/DL (1.6-2.4)
[2021-08-24] MEDS: SENNA W/DOCUSATE (SENOKOT S) TABLET PO SCH ×2 (09:19→20:49)
[2021-08-24] MEDS: DIGOXIN 0.125 MG (LANOXIN) TAB PO SCH (09:19)
[2021-08-24] MEDS: meTOproloL SUCCINATE 50 MG (TOPROL XL) TAB PO SCH (09:19)
[2021-08-24] MEDS: APIXABAN 5 MG (ELIQUIS) TABLET PO SCH ×2 (09:19→20:49)
--- NOTE | 2021-08-24 09:38 | Cardiology Progress Note ---
Progress Note-Cardiology Events since last exam Date Seen by Provider: Aug 24, 2021 Time Seen by Provider: 09:33 Events since last exam I am following him due to atrial fibrillation and heart failure. Last night he became confused and was also complaining of abdominal pain. A head CT and abdominal/pelvic CT were performed. This morning he thought his name was Alvin Mccurdy. However, when I spoke to him, he was oriented to person and time but not place. He denies chest discomfort, dyspnea, palpitations, or syncope. He has persistent, bilateral lower extremity edema. However, he is not answering all questions appropriately. Certain portions of this document may have been dictated utilizing voice zac gnition technology. Inherent to this technology, typographical and grammatical errors may exist. As much as I am diligent to identify and correct these mistakes, some errors may remain in the document. Vitals Last set of Vitals Signs Vital Signs 08/23/21 08/24/21 09:34 08:00 Temp 36.4 Pulse 93 Resp 23 B/P (MAP) 101/52 Pulse Ox 98 O2 Delivery High Flow N/C O2 Flow Rate 6.00 FiO2 28 Labs Labs Laboratory Tests 08/23/21 17:40 08/24/21 05:55 Exam Vital Signs Vital Signs Date Time Temp Pulse Resp B/P (MAP) Pulse Ox O2 Delivery O2 Flow Rate FiO2 08/24/21 08:00 36.4 08/24/21 08:00 93 23 101/52 98 High Flow N/C 6.00 08/23/21 09:34 28 Physical Exam General: Alert. No acute distress. Eye: No xanthelasma. HENT: Normocephalic. Neck: Jugular venous pressure does not appear elevated. Respiratory: Lungs are clear to auscultation. Respirations are non-labored. Breath sounds are equal. Symmetrical chest wall expansion. Cardiovascular: Irregularly irregular rhythm. No murmur. No gallop. 1-2+ bilateral pretibial edema. Right foot is bandaged. Gastrointestinal: Soft. Normal bowel sounds. Skin: Warm. Dry. Neurologic: Alert and oriented to person and time but not place although he does know he is in a hospital. Cranial nerves 3-11 grossly intact. Psychiatric: Confused. Labs Laboratory Tests Test 08/23/21 17:40 08/23/21 18:41 08/23/21 21:07 08/24/21 05:55 Range/Units White Blood Count 21.0 H 23.7 H 4.3-11.0 10^3/uL Red Blood Count 4.58 4.58 4.30-5.52 10^6/uL Hemoglobin 12.1 L 12.3 L 13.3-17.7 g/dL Hematocrit 39 L 40 40-54 % Mean Corpuscular Volume 86 86 80-99 fL Mean Corpuscular Hemoglobin 26 27 25-34 pg Mean Corpuscular Hemoglobin Concent 31 L 31 L 32-36 g/dL Red Cell Distribution Width 15.0 H 15.0 H 10.0-14.5 % Platelet Count 194 173 130-400 10^3/uL Mean Platelet Volume 10.6 10.4 9.0-12.2 fL Sodium Level 139 139 135-145 MMOL/L Potassium Level 3.8 3.9 3.6-5.0 MMOL/L Chloride Level 101 102 98-107 MMOL/L Carbon Dioxide Level 27 26 21-32 MMOL/L Anion Gap 11 11 5-14 MMOL/L Blood Urea Nitrogen 34 H 37 H 7-18 MG/DL Creatinine 1.62 H 1.66 H 0.60-1.30 MG/DL Estimat Glomerular Filtration Rate 42 41 BUN/Creatinine Ratio 21 22 Glucose Level 132 H 109 H 70-105 MG/DL Lactic Acid Level 2.43 *H 1.63 0.50-2.00 MMOL/L Calcium Level 8.0 L 8.2 L 8.5-10.1 MG/DL Blood Gas Puncture Site RT RAD Blood Gas Patient Temperature 35.5 Arterial Blood pH 7.38 7.37-7.43 Arterial Blood Partial Pressure CO2 52 H 35-45 MMHG Arterial Blood Partial Pressure O2 83 79-93 MMHG Arterial Blood HCO3 31 H 23-27 MMOL/L Arterial Blood Total CO2 32.3 H 21.0-31.0 MMOL/L Arterial Blood Oxygen Saturation 97 94-100 % Arterial Blood Base Excess 5.4 H -2.5-2.5 MMOL/L Hardik Test YES-POS Blood Gas Ventilator Setting NO Blood Gas Inspired Oxygen 5L Immature Granulocyte % (Auto) 1 % Neutrophils (%) (Auto) 89 H 42-75 % Lymphocytes (%) (Auto) 5 L 12-44 % Monocytes (%) (Auto) 5 0-12 % Eosinophils (%) (Auto) 0 0-10 % Basophils (%) (Auto) 0 0-10 % Neutrophils # (Auto) 21.1 H 1.8-7.8 10^3/uL Lymphocytes # (Auto) 1.1 1.0-4.0 10^3/uL Monocytes # (Auto) 1.3 H 0.0-1.0 10^3/uL Eosinophils # (Auto) 0.0 0.0-0.3 10^3/uL Basophils # (Auto) 0.1 0.0-0.1 10^3/uL Immature Granulocyte # (Auto) 0.2 H 0.0-0.1 10^3/uL Corrected Calcium 9.8 8.5-10.1 MG/DL Phosphorus Level 3.6 2.3-4.7 MG/DL Magnesium Level 1.8 1.6-2.4 MG/DL Total Bilirubin 1.0 0.1-1.0 MG/DL Aspartate Amino Transf (AST/SGOT) 24 5-34 U/L Alanine Aminotransferase (ALT/SGPT) 14 0-55 U/L Alkaline Phosphatase 179 H 40-136 U/L Total Protein 5.5 L 6.4-8.2 GM/DL Albumin 2.0 L 3.2-4.5 GM/DL Diagnosis/Problems Diagnosis/Problems (1) Acute on chronic heart failure with preserved ejection fraction (HFpEF) Assessment & Plan: He seems to be breathing more comfortably over the past 1-2 days. However, he has bilateral pleural effusions and peripheral edema. When he was on intravenous furosemide, his creatinine level jumped and then he received intravenous fluids. He may be developing cardiorenal syndrome. I will put him back on furosemide but once daily. We will need to watch his renal function closely. (2) Persistent atrial fibrillation Assessment & Plan: He remains in atrial fibrillation. His heart rates have been difficult to control because he has not been tolerating metoprolol due to low blood pressures. I did start him on digoxin but given his kidney disease, we will need to be careful with this medication. I do not feel that he can undergo a cardioversion because I am concerned he could have left atrial thrombus since he was probably not absorbing his Xarelto adequately due to poor oral intake prior to admission. (3) Troponin level elevated Assessment & Plan: This was most likely a type II non-ST elevation myocardial infarction due to persistent tachycardia from the atrial fibrillation and decompensated heart failure. (4) Acute kidney injury superimposed on chronic kidney disease Assessment & Plan: This seems to have stabilized. I will resume intravenous furosemide but just once daily. (5) Liver mass Assessment & Plan: This is a new finding in this patient. Evaluation is in progress. This may represent metastatic disease of unknown primary. (6) Gangrene of toe of right foot Assessment & Plan: Given his persistent atrial fibrillation and the fact that he does not have any significant peripheral arterial disease of the right lower extremity, this raises a concern for an embolic event. He had a right transmetatarsal amputation during this admission. (7) Deep vein thrombosis, upper right extremity Assessment & Plan: He was initially on enoxaparin but I have changed this over to apixaban. He was on rivaroxaban at home but most likely was not absorbing the medication adequately due to his poor oral intake. Apixaban does not require food for adequate absorption. (8) Pulmonary hypertension Assessment & Plan: He has persistently elevated pulmonary artery pressure of unclear etiology. I suspect this may be multifactorial in part due to the c hronic heart failure. This will need to be followed longitudinally. (9) Primary hypertension Assessment & Plan: I have started him on metoprolol to help with rate control for the atrial fibrillation. His blood pressure have been low at times and metoprolol has been intermittently held as outlined above (10) Dysphagia Assessment & Plan: The surgeon wants to hold off on upper endoscopy until he is more medically stable. In light of the liver masses, he now may need an upper and lower endoscopy for further evaluation. JUAN ANTONIO HILL JR, MD Aug 24, 2021 09:38
[2021-08-24] MEDS ORDERED: FUROSEMIDE 40 MG/4 ML INJ (LASIX) IVP NR (09:45)
[2021-08-24] MEDS: D5 LR IV SOLUTION 1,000 ML IV SCH (11:59)
--- NOTE | 2021-08-24 12:36 | Progress Note - Surgery ---
Subjective Date Seen by a Provider: Aug 24, 2021 Time Seen by a Provider: 10:47 Subjective/Events-last exam Pain controlled. Tolerating diet. No complaints. Denies n/v fever sweats chills shortness of breath or chest pain. Focused Exam Lactate Level 08/23/21 17:40: Lactic Acid Level 2.43*H 08/23/21 21:07: Lactic Acid Level 1.63 Objective Exam Vital Signs Date Time Temp Pulse Resp B/P (MAP) Pulse Ox O2 Delivery O2 Flow Rate FiO2 08/24/21 12:00 85 91/51 92 High Flow N/C 6.00 08/24/21 11:00 122 20 82/51 100 High Flow N/C 6.00 08/24/21 10:49 98 Nasal Cannula 4.00 08/24/21 10:00 98 34 99/81 92 High Flow N/C 6.00 08/24/21 09:00 103 107/79 97 High Flow N/C 6.00 08/24/21 08:00 36.4 08/24/21 08:00 93 23 101/52 98 High Flow N/C 6.00 08/24/21 07:00 89 17 101/47 99 High Flow N/C 6.00 08/24/21 07:00 99 08/24/21 06:21 100 Nasal Cannula 4.00 08/24/21 06:00 92 28 100 High Flow N/C 6.00 08/24/21 05:00 105 31 97/75 95 High Flow N/C 6.00 08/24/21 04:00 Nasal Cannula 6.00 08/24/21 04:00 105 20 99/56 95 High Flow N/C 6.00 08/24/21 03:09 High Flow N/C 6.00 08/24/21 03:00 98 26 91/63 95 Nasal Cannula 4.00 08/24/21 02:00 98 30 117/66 95 Nasal Cannula 4.00 08/24/21 01:47 92 Nasal Cannula 4.00 08/24/21 01:00 90 08/24/21 01:00 60 14 81/59 100 Nasal Cannula 4.00 08/24/21 00:00 60 20 100 Nasal Cannula 4.00 08/24/21 00:00 Nasal Cannula 6.00 08/23/21 23:00 86 27 105/46 100 Nasal Cannula 4.00 08/23/21 22:54 97 Nasal Cannula 4.00 08/23/21 22:00 76 27 87/53 100 Nasal Cannula 4.00 08/23/21 21:00 85 19 89/49 100 Nasal Cannula 4.00 08/23/21 20:30 36.0 08/23/21 20:00 Nasal Cannula 4.00 08/23/21 20:00 90 14 85/63 93 Nasal Cannula 4.00 08/23/21 19:00 82 08/23/21 19:00 84 26 82/51 93 Nasal Cannula 4.00 08/23/21 18:50 Nasal Cannula 4.00 08/23/21 18:47 97 Nasal Cannula 5.00 08/23/21 18:00 90 18 85/64 95 Nasal Cannula 2.00 08/23/21 17:00 79 21 94/59 91 Nasal Cannula 2.00 08/23/21 16:43 36.0 08/23/21 16:00 Nasal Cannula 2.00 08/23/21 16:00 86 31 95 Nasal Cannula 2.00 08/23/21 15:16 97 Nasal Cannula 2.00 08/23/21 15:00 82 30 100 Nasal Cannula 2.00 08/23/21 14:00 90 20 98 Nasal Cannula 2.00 08/23/21 13:00 88 08/23/21 13:00 81 11 100 Nasal Cannula 2.00 I & O 08/24/21 07:00 Intake Total 1800 ml Output Total 775 ml Balance 1025 ml Capillary Refill : Less Than 3 Seconds General Appearance: No Apparent Distress, Chronically ill, Thin HEENT: PERRL/EOMI, Normal ENT Inspection Neck: Full Range of Motion Respiratory: Chest Non Tender, No Accessory Muscle Use, No Respiratory Distress Cardiovascular: Irregularly Irregular, Tachycardia Gastrointestinal: normal bowel sounds, non tender, soft Extremity: Normal Capillary Refill Neurologic/Psychiatric: Alert, Oriented x3, No Motor/Sensory Deficits, Normal Mood/Affect Skin: Normal Color Lymphatic: No Adenopathy Results Lab Laboratory Tests 08/23/21 17:40: White Blood Count 21.0H, Red Blood Count 4.58, Hemoglobin 12.1L, Hematocrit 39L, Mean Corpuscular Volume 86, Mean Corpuscular Hemoglobin 26, Mean Corpuscular Hemoglobin Concent 31L, Red Cell Distribution Width 15.0H, Platelet Count 194, Mean Platelet Volume 10.6, Sodium Level 139, Potassium Level 3.8, Chloride Level 101, Carbon Dioxide Level 27, Anion Gap 11, Blood Urea Nitrogen 34H, Creatinine 1.62H, Estimat Glomerular Filtration Rate 42, BUN/Creatinine Ratio 21, Glucose Level 132H, Lactic Acid Level 2.43*H, Calcium Level 8.0L 08/23/21 18:41: Blood Gas Puncture Site RT RAD, Blood Gas Patient Temperature 35.5, Arterial Blood pH 7.38, Arterial Blood Partial Pressure CO2 52H, Arterial Blood Partial Pressure O2 83, Arterial Blood HCO3 31H, Arterial Blood Total CO2 32.3H, Arterial Blood Oxygen Saturation 97, Arterial Blood Base Excess 5.4H, Hardik Test YES-POS, Blood Gas Ventilator Setting NO, Blood Gas Inspired Oxygen 5L 08/23/21 21:07: Lactic Acid Level 1.63 08/24/21 05:55: White Blood Count 23.7H, Red Blood Count 4.58, Hemoglobin 12.3L, Hematocrit 40, Mean Corpuscular Volume 86, Mean Corpuscular Hemoglobin 27, Mean Corpuscular Hemoglobin Concent 31L, Red Cell Distribution Width 15.0H, Platelet Count 173, Mean Platelet Volume 10.4, Sodium Level 139, Potassium Level 3.9, Chloride Level 102, Carbon Dioxide Level 26, Anion Gap 11, Blood Urea Nitrogen 37H, Creatinine 1.66H, Estimat Glomerular Filtration Rate 41, BUN/Creatinine Ratio 22, Glucose Level 109H, Calcium Level 8.2L, Immature Granulocyte % (Auto) 1, Neutrophils (%) (Auto) 89H, Lymphocytes (%) (Auto) 5L, Monocytes (%) (Auto) 5, Eosinophils (%) (Auto) 0, Basophils (%) (Auto) 0, Neutrophils # (Auto) 21.1H, Lymphocytes # (Aut o) 1.1, Monocytes # (Auto) 1.3H, Eosinophils # (Auto) 0.0, Basophils # (Auto) 0.1, Immature Granulocyte # (Auto) 0.2H, Corrected Calcium 9.8, Phosphorus Level 3.6, Magnesium Level 1.8, Total Bilirubin 1.0, Aspartate Amino Transf (AST/SGOT) 24, Alanine Aminotransferase (ALT/SGPT) 14, Alkaline Phosphatase 179H, Total Protein 5.5L, Albumin 2.0L 08/24/21 08:44: Ammonia 26 Microbiology 08/19/21 Blood Culture - Final, Complete Gram Negative Ramez Assessment/Plan Assessment/Plan Assessment/Plan s/p right TMA. PT with partial wt bearing. hx of dysphagia/GERD however not severe. will plan on EGD with possible dilatation once a-fib and BP more stable. Pain control. HANANE PEREZ DO Aug 24, 2021 12:36
--- NOTE | 2021-08-24 12:50 | Tele-ICU Progress Note ---
Subjective Date Seen by a Provider: Aug 24, 2021 Time Seen by a Provider: 12:50 Sepsis Event Evaluation Height, Weight, BMI Height: '" Weight: lbs. oz. kg; 23.44 BMI Method: Focused Exam Lactate Level 08/23/21 17:40: Lactic Acid Level 2.43*H 08/23/21 21:07: Lactic Acid Level 1.63 Exam Exam Patient acknowledged, consented, and participated in this virtual visit which was conducted using real time audio/video Vital Signs Date Time Temp Pulse Resp B/P (MAP) Pulse Ox O2 Delivery O2 Flow Rate FiO2 08/24/21 12:00 85 91/51 92 High Flow N/C 6.00 08/24/21 11:00 122 20 82/51 100 High Flow N/C 6.00 08/24/21 10:49 98 Nasal Cannula 4.00 08/24/21 10:00 98 34 99/81 92 High Flow N/C 6.00 08/24/21 09:00 103 107/79 97 High Flow N/C 6.00 08/24/21 08:00 36.4 08/24/21 08:00 93 23 101/52 98 High Flow N/C 6.00 08/24/21 07:00 89 17 101/47 99 High Flow N/C 6.00 08/24/21 07:00 99 08/24/21 06:21 100 Nasal Cannula 4.00 08/24/21 06:00 92 28 100 High Flow N/C 6.00 08/24/21 05:00 105 31 97/75 95 High Flow N/C 6.00 08/24/21 04:00 Nasal Cannula 6.00 08/24/21 04:00 105 20 99/56 95 High Flow N/C 6.00 08/24/21 03:09 High Flow N/C 6.00 08/24/21 03:00 98 26 91/63 95 Nasal Cannula 4.00 08/24/21 02:00 98 30 117/66 95 Nasal Cannula 4.00 08/24/21 01:47 92 Nasal Cannula 4.00 08/24/21 01:00 90 08/24/21 01:00 60 14 81/59 100 Nasal Cannula 4.00 08/24/21 00:00 60 20 100 Nasal Cannula 4.00 08/24/21 00:00 Nasal Cannula 6.00 08/23/21 23:00 86 27 105/46 100 Nasal Cannula 4.00 08/23/21 22:54 97 Nasal Cannula 4.00 08/23/21 22:00 76 27 87/53 100 Nasal Cannula 4.00 08/23/21 21:00 85 19 89/49 100 Nasal Cannula 4.00 08/23/21 20:30 36.0 08/23/21 20:00 Nasal Cannula 4.00 08/23/21 20:00 90 14 85/63 93 Nasal Cannula 4.00 08/23/21 19:00 82 08/23/21 19:00 84 26 82/51 93 Nasal Cannula 4.00 08/23/21 18:50 Nasal Cannula 4.00 08/23/21 18:47 97 Nasal Cannula 5.00 08/23/21 18:00 90 18 85/64 95 Nasal Cannula 2.00 08/23/21 17:00 79 21 94/59 91 Nasal Cannula 2.00 08/23/21 16:43 36.0 08/23/21 16:00 Nasal Cannula 2.00 08/23/21 16:00 86 31 95 Nasal Cannula 2.00 08/23/21 15:16 97 Nasal Cannula 2.00 08/23/21 15:00 82 30 100 Nasal Cannula 2.00 08/23/21 14:00 90 20 98 Nasal Cannula 2.00 08/23/21 13:00 88 08/23/21 13:00 81 11 100 Nasal Cannula 2.00 I & O 08/24/21 07:00 Intake Total 1800 ml Output Total 775 ml Balance 1025 ml Height & Weight Height: '" Weight: lbs. oz. kg; 23.44 BMI Method: General Appearance: No Apparent Distress, Chronically ill, Thin HEENT: PERRL/EOMI, Normal ENT Inspection Neck: Full Range of Motion Respiratory: Chest Non Tender, No Accessory Muscle Use, No Respiratory Distress Cardiovascular: Irregularly Irregular, Tachycardia Capillary Refill: Less Than 3 Seconds Gastrointestinal: normal bowel sounds, non tender, soft Extremity: Normal Capillary Refill Neurologic/Psychiatric: Alert, Oriented x3, No Motor/Sensory Deficits, Normal Mood/Affect Skin: Normal Color Lymphatic: No Adenopathy Results Lab Laboratory Tests 08/23/21 05:10 08/23/21 06:34 08/23/21 17:40 08/24/21 05:55 Assessment/Plan Assessment/Plan (Tele-ICU Physician , Progress Note ) Available chart/ vitals / labs / Images reviewed Video assessment done using teleICU camera, rest of exam as per RN Discussed with RN , EXAM PER RN Events overnight : Afebrile FiO2 - I/O = Drips: Pressors: , hemodynamically stable Consultants: Hospital course: A/P A fib - rvr - off esmolol gtt - sotalol - cards follow -lovenox 80 q 12 ECHO ef 75% Right toe gangrene - S/P TMA JOSE - improved with hydration - CONTINUE TO MONITOR POST SURGERY Hypoxia - on 3 l -CT with Large bilateral pleural effusions - on eliquis -order cxr FOR THURSDAY - ? NEED THORACENTESIS RUE DVT - verbal report. STARTED ON LOVENOX - might be related to underlying malignancy CT abd - with suspected malignancy - asper pcp POSSIBLE FOOT INFECTION. BROAD SPECTRUM ANTIBIOTICS PER PCP Plans in collaboration with bedside consultants and IM MDs. Discussed with RN to reach out if any questions or concerns A total of 30 minutes of critical care time was devoted to this patient today, required to treat and/or prevent further deterioration of critical care condition ( as above) . SASKIA ALMAGUER MD Aug 24, 2021 12:50
[2021-08-24] MEDS: morphine INJ 4 MG/ML 1 ML (VIAL/SYRINGE) IV PRN (18:34)
[2021-08-25] MEDS: D5 LR IV SOLUTION 1,000 ML IV SCH ×2 (00:37→13:00)
[2021-08-25] MEDS: morphine INJ 4 MG/ML 1 ML (VIAL/SYRINGE) IV PRN ×2 (03:08→22:06)
[2021-08-25] MEDS: RT-ALBUTEROL/IPRATROPIUM 3 ML (DUONEB) VIAL INH SCH ×5 (03:56→23:12)
[2021-08-25 04:21] LABS: BASOPHILS # (AUTO) 0.1 10^3/uL (0.0-0.1); BASOPHILS % (AUTO) 0 % (0-10); EOSINOPHILS % (AUTO) 0 % (0-10); HEMATOCRIT 40 % (40-54); HEMOGLOBIN 12.3 g/dL (13.3-17.7); LYMPHOCYTES # (AUTO) 1.1 10^3/uL (1.0-4.0); LYMPHOCYTES % (AUTO) 5 % (12-44); MEAN CORPUSCULAR HEMOGLOBIN 26 pg (25-34); MEAN CORPUSCULAR HGB CONC 31 g/dL (32-36); MEAN CORPUSCULAR VOLUME 86 fL (80-99); MEAN PLATELET VOLUME 10.4 fL (9.0-12.2); MONOCYTES # (AUTO) 1.5 10^3/uL (0.0-1.0); MONOCYTES % (AUTO) 7 % (0-12); NEUTROPHILS # (AUTO) 19.4 10^3/uL (1.8-7.8); NEUTROPHILS % (AUTO) 87 % (42-75); PLATELET COUNT 151 10^3/uL (130-400); WHITE BLOOD COUNT 22.3 10^3/uL (4.3-11.0)
[2021-08-25 04:35] LABS: ALBUMIN 1.9 GM/DL (3.2-4.5); POTASSIUM 3.8 MMOL/L (3.6-5.0)
[2021-08-25 04:36] LABS: CALCIUM 8.2 MG/DL (8.5-10.1)
[2021-08-25 04:37] LABS: TOTAL PROTEIN 5.2 GM/DL (6.4-8.2)
[2021-08-25 04:39] LABS: BILIRUBIN,TOTAL 0.9 MG/DL (0.1-1.0)
[2021-08-25 04:40] LABS: PHOSPHORUS 3.8 MG/DL (2.3-4.7)
[2021-08-25 04:41] LABS: CREATININE SERUM 1.68 MG/DL (0.60-1.30)
[2021-08-25 04:44] LABS: MAGNESIUM 1.8 MG/DL (1.6-2.4)
--- NOTE | 2021-08-25 07:02 | Progress Note - Hospitalist ---
Subjective HPI/CC On Admission Date Seen by Provider: Aug 25, 2021 Time Seen by Provider: 11:30 CC: SOB from heart failure HPI: This is a 76yoWM who has a PMH of CHF managed by Dr. Roberts who presents from [facility] with SOB. Pt was placed in the ICU with IV diuresis. Right arm DVT noted on ultrasound, B/L lower extremities negative for DVT but right foot had dry gangrene that Dr. Duque will address. He will have MARISA today and he was placed on Vancomycin and Cefepime. His potassium is 3 being supplemented and his WBC is 15. At this current time pt denies any new issues and he was placed on Lovenox therapeutic dose. Subjective/Events-last exam Patient appears to be declining every day I did speak with the son about this situation Not tracking well Son has not seen him since the before he came to the hospital and I prepared him to see his decline Moving to cardiac stepdown unit We will talk to radiology about liver biopsy tomorrow to confirm suspicion of cancer We will need to talk more about DO NOT RESUSCITATE Review of Systems General: Fatigue, Malaise Focused Exam Lactate Level 08/23/21 17:40: Lactic Acid Level 2.43*H 08/23/21 21:07: Lactic Acid Level 1.63 Objective Exam Vital Signs Vital Signs Date Time Temp Pulse Resp B/P (MAP) Pulse Ox O2 Delivery O2 Flow Rate FiO2 08/26/21 03:21 High Flow N/C 7.00 08/26/21 03:14 95 08/26/21 01:00 120 08/26/21 00:30 36.5 14 104/63 Automatic Cuff 08/23/21 09:34 28 Capillary Refill : Less Than 3 Seconds General Appearance: Chronically ill, Thin Respiratory: No Accessory Muscle Use, No Respiratory Distress, Decreased Breath Sounds Cardiovascular: Irregularly Irregular, Tachycardia Neurologic/Psychiatric: Alert, Disoriented Results/Procedures Lab Patient resulted labs reviewed. Assessment/Plan Assessment and Plan Assess & Plan/Chief Complaint Assessment: A.fib with RVR -Cardilogy consulted -Diltiazem being given along with digoxin today -Has received Echo and peripheral US -MARISA unsuccessful due to inability to progress scope consulted Dr. DUQUE for esophageal stricture -Continue to monitor Sepsis -ABX -monitor pt closely Right arm DVT -Anticoagulation -Continue to monitor Gangrene/Osteomyelitis -Surgery consulted -Continuing abx -Status post right metatarsal amputation Hypokalemia CT scan shows liver metastasis presumed colon cancer or lung cancer Plan: Surgery today A. fib and congestive heart failure cardiology manages 08/22/2021: Supportive care Anticoagulation Appreciate general surgery 08/23/2021: Central line Anticoagulation Rate control 08/24/2021: Cancer work-up Poor prognosis Will need pastoral care for advanced directive talk 08/25/2021: Transfer to cardiac stepdown unit Needs DNR due to widespread cancer appearance on CT Liver biopsy? Critical Care Critically Ill Patient VLAD CHAMBERS DO Aug 25, 2021 07:02
--- NOTE | 2021-08-25 07:45 | Progress Note - Surgery ---
[facility] 08/25/21 0745: Subjective Date Seen by a Provider: Aug 25, 2021 Time Seen by a Provider: 07:15 Subjective/Events-last exam Patient became agitated last night/morning Patient was confused and only oriented to the year. When trying to unwrap dressing on right foot, patient voiced pain. WBC at 22.3, Denied fevers, chills, nausea, abdominal pain Review of Systems General: No Chills, No Other (fevers) Pulmonary: No Dyspnea, No Cough Cardiovascular: No: Chest Pain, Palpitations Gastrointestinal: No: Nausea, Vomiting Focused Exam Lactate Level 08/23/21 17:40: Lactic Acid Level 2.43*H 08/23/21 21:07: Lactic Acid Level 1.63 Objective Exam Vital Signs Date Time Temp Pulse Resp B/P (MAP) Pulse Ox O2 Delivery O2 Flow Rate FiO2 08/25/21 07:38 36.8 08/25/21 07:00 117 08/25/21 06:00 105 15 95/66 98 High Flow N/C 5.00 08/25/21 05:00 104 15 105/53 97 High Flow N/C 5.00 08/25/21 04:00 High Flow N/C 5.00 08/25/21 04:00 95 26 79/54 97 High Flow N/C 5.00 08/25/21 03:00 97 27 107/54 94 High Flow N/C 5.00 08/25/21 02:00 98 18 117/68 96 High Flow N/C 5.00 08/25/21 01:00 108 08/25/21 01:00 98 17 119/71 99 High Flow N/C 5.00 08/25/21 00:39 36.2 08/25/21 00:00 98 39 109/62 94 High Flow N/C 5.00 08/25/21 00:00 High Flow N/C 5.00 08/24/21 23:00 85 16 117/74 95 High Flow N/C 5.00 08/24/21 22:21 95 High Flow N/C 4.00 08/24/21 22:00 85 16 97/60 95 High Flow N/C 5.00 08/24/21 21:00 92 102/69 95 High Flow N/C 5.00 08/24/21 20:00 High Flow N/C 5.00 08/24/21 20:00 93 16 82/52 High Flow N/C 5.00 08/24/21 19:55 36.4 08/24/21 19:04 94 High Flow N/C 4.00 08/24/21 19:00 121 08/24/21 19:00 100 16 103/81 94 High Flow N/C 5.00 08/24/21 19:00 High Flow N/C 5.00 08/24/21 18:00 102 27 110/74 93 High Flow N/C 6.00 08/24/21 17:00 90 18 119/63 95 High Flow N/C 6.00 08/24/21 16:00 36.5 08/24/21 16:00 Nasal Cannula 6.00 08/24/21 16:00 105 16 102/56 96 High Flow N/C 6.00 08/24/21 15:00 111 25 120/59 96 High Flow N/C 6.00 08/24/21 14:00 103 111/69 94 High Flow N/C 6.00 08/24/21 13:00 93 28 91/51 98 High Flow N/C 6.00 08/24/21 12:53 95 08/24/21 12:00 85 91/51 92 High Flow N/C 6.00 08/24/21 12:00 Nasal Cannula 6.00 08/24/21 11:00 122 20 82/51 100 High Flow N/C 6.00 08/24/21 10:49 98 Nasal Cannula 4.00 08/24/21 10:00 98 34 99/81 92 High Flow N/C 6.00 08/24/21 09:00 103 107/79 97 High Flow N/C 6.00 08/24/21 08:00 Nasal Cannula 6.00 08/24/21 08:00 36.4 08/24/21 08:00 93 23 101/52 98 High Flow N/C 6.00 I & O 08/25/21 07:00 Intake Total 150 ml Output Total 1050 ml Balance -900 ml Capillary Refill : Less Than 3 Seconds General Appearance: No Apparent Distress, Anxious, Chronically ill, Thin HEENT: PERRL/EOMI, Normal ENT Inspection Neck: Non Tender, Supple Respiratory: Normal Breath Sounds, No Accessory Muscle Use, No Respiratory Distress, Other (HFNC in appropriate position) Cardiovascular: Irregularly Irregular, Other (UE and LE edema) Peripheral Pulses: 2+ Radial Pulses (R), 2+ Radial Pulses (L) Gastrointestinal: normal bowel sounds, non tender, soft Extremity: Normal Capillary Refill, No Calf Tenderness, Other (Bandage on right foot, no discharge seen through dressing) Neurologic/Psychiatric: Alert, Other (Oriented x 1) Skin: Normal Color, Warm/Dry (cervical or posterior auricular) Lymphatic: No Adenopathy Other comments Quiles in place Results Lab Laboratory Tests 08/24/21 08:44: Ammonia 26 08/25/21 04:14: White Blood Count 22.3H, Red Blood Count 4.67, Hemoglobin 12.3L, Hematocrit 40, Mean Corpuscular Volume 86, Mean Corpuscular Hemoglobin 26, Mean Corpuscular Hemoglobin Concent 31L, Red Cell Distribution Width 15.3H, Platelet Count 151, Mean Platelet Volume 10.4, Immature Granulocyte % (Auto) 1, Neutrophils (%) (Auto) 87H, Lymphocytes (%) (Auto) 5L, Monocytes (%) (Auto) 7, Eosinophils (%) (Auto) 0, Basophils (%) (Auto) 0, Neutrophils # (Auto) 19.4H, Lymphocytes # (Auto) 1.1, Monocytes # (Auto) 1.5H, Eosinophils # (Auto) 0.0, Basophils # (Auto) 0.1, Immature Granulocyte # (Auto) 0.1, Sodium Level 143, Potassium Level 3.8, Chloride Level 103, Carbon Dioxide Level 27, Anion Gap 13, Blood Urea Nitrogen 39H, Creatinine 1.68H, Estimat Glomerular Filtration Rate 40, BUN/Creatinine Ratio 23, Glucose Level 97, Calcium Level 8.2L, Corrected Calcium 9.9, Phosphorus Level 3.8, Magnesium Level 1.8, Total Bilirubin 0.9, Aspartate Amino Transf (AST/SGOT) 18, Alanine Aminotransferase (ALT/SGPT) 13, Alkaline Phosphatase 200H, Total Protein 5.2L, Albumin 1.9L Microbiology 08/19/21 Blood Culture - Final, Complete Gram Negative Ramez Assessment/Plan Assessment/Plan Assessment/Plan s/p right TMA. PT with partial wt bearing. hx of dysphagia/GERD however not severe. will plan on EGD with possible dilatation once a-fib and BP more stable. Pain control. Continue wound care Continue antibiotics CT 06/24 showing concerns for multiple low-density masses throughout both lobes of the liver. - suspicious for metastasis - Recommend future colonoscopy DEREK CRABTREE DO 08/25/21 1329: Subjective Subjective/Events-last exam Slight confused. Pain seems controlled. Laying in bed. Right foot some tenderness. Denies n/v fever sweats chills shortness of breath or chest pain. Objective Exam General Appearance: Anxious, Chronically ill, Thin HEENT: PERRL/EOMI, Normal ENT Inspection Neck: Non Tender, Supple Respiratory: Chest Non Tender, No Accessory Muscle Use, No Respiratory Distress Cardiovascular: Irregularly Irregular, Other (UE and LE edema) Gastrointestinal: non tender, soft, other (slight fullness of left abdomen) Extremity: Normal Capillary Refill, Other (right foot with some slight edema/echymosis of skin flap.) Neurologic/Psychiatric: Alert; No Oriented x3 Skin: Normal Color, Ecchymosis (and edema of flap for right TMA) Lymphatic: No Adenopathy Assessment/Plan Assessment/Plan Assessment/Plan s/p right TMA. PT with partial wt bearing. hx of dysphagia/GERD however not severe. will plan on EGD with possible dilatation once a-fib and BP more stable. Pain control. Continue wound care Continue antibiotics CT 06/24 showing concerns for multiple low-density masses throughout both lobes of the liver. - suspicious for metastasis - Recommend future colonoscopy/ possible biopsy liver Supervisory-Addendum Brief Verification & Attestation Participated in pt care: history, MDM, physical Personally performed: exam, history, MDM, supervision of care Care discussed with: Medical Student Procedures: n/a Results interpretation: Verified all documentation Verification and Attestation of Medical Student E/M Service A medical student performed and documented this service in my presence. I reviewed and verified all information documented by the medical student and made modifications to such information, when appropriate. I personally performed the physical exam and medical decision making. Derek Crabtree, Aug 25, 2021,13:28 [facility] Aug 25, 2021 07:45 DEREK CRABTREE DO Aug 25, 2021 13:29
[2021-08-25] MEDS: SENNA W/DOCUSATE (SENOKOT S) TABLET PO SCH ×2 (08:34→21:01)
[2021-08-25] MEDS: FUROSEMIDE 40 MG/4 ML INJ (LASIX) IVP SCH (08:35)
[2021-08-25] MEDS: DIGOXIN 0.125 MG (LANOXIN) TAB PO SCH ×2 (08:35→09:46)
[2021-08-25] MEDS: meTOproloL SUCCINATE 50 MG (TOPROL XL) TAB PO SCH ×2 (08:35→09:46)
[2021-08-25] MEDS: APIXABAN 5 MG (ELIQUIS) TABLET PO SCH ×2 (08:35→21:10)
--- NOTE | 2021-08-25 09:26 | Cardiology Progress Note ---
Progress Note-Cardiology Events since last exam Date Seen by Provider: Aug 25, 2021 Time Seen by Provider: 09:21 Events since last exam I am following him due to heart failure and atrial fibrillation. This morning he has been confused. He will not eat or drink or take his medications. When I saw him, he knew who I was but thought we are in [place]. He states he feels very tired. He denies chest discomfort, dyspnea at rest, palpitations, or syncope. Certain portions of this document may have been dictated utilizing voice recognition technology. Inherent to this technology, typographical and grammatical errors may exist. As much as I am diligent to identify and correct these mistakes, some errors may remain in the document. Vitals Last set of Vitals Signs Vital Signs 08/23/21 08/25/21 08/25/21 08/25/21 09:34 06:00 07:38 08:00 Temp 36.8 Pulse 97 Resp 15 B/P (MAP) 94/52 Pulse Ox 93 O2 Delivery High Flow N/C O2 Flow Rate 5.00 FiO2 28 Labs Labs Laboratory Tests 08/25/21 04:14 Exam Vital Signs Vital Signs Date Time Temp Pulse Resp B/P (MAP) Pulse Ox O2 Delivery O2 Flow Rate FiO2 08/25/21 08:00 97 94/52 93 High Flow N/C 5.00 08/25/21 07:38 36.8 08/25/21 06:00 15 08/23/21 09:34 28 Physical Exam General: Somnolent but easily arousable. No acute distress. Eye: No xanthelasma. HENT: Normocephalic. Neck: Jugular venous pressure does not appear elevated. Respiratory: Lungs are clear to auscultation but with decreased breath sounds at the bases bilaterally. Respirations are non-labored. Breath sounds are equal. Symmetrical chest wall expansion. Cardiovascular: Irregularly irregular rhythm. No murmur. No gallop. 1-2+ bilateral pretibial edema. Right foot is bandaged. Gastrointestinal: Soft. Normal bowel sounds. Skin: Warm. Dry. Neurologic: Alert and oriented to person only but does know he is in a hospital. Cranial nerves 3-11 grossly intact. Psychiatric: Confused. Labs Laboratory Tests Test 08/25/21 04:14 Range/Units White Blood Count 22.3 H 4.3-11.0 10^3/uL Red Blood Count 4.67 4.30-5.52 10^6/uL Hemoglobin 12.3 L 13.3-17.7 g/dL Hematocrit 40 40-54 % Mean Corpuscular Volume 86 80-99 fL Mean Corpuscular Hemoglobin 26 25-34 pg Mean Corpuscular Hemoglobin Concent 31 L 32-36 g/dL Red Cell Distribution Width 15.3 H 10.0-14.5 % Platelet Count 151 130-400 10^3/uL Mean Platelet Volume 10.4 9.0-12.2 fL Immature Granulocyte % (Auto) 1 % Neutrophils (%) (Auto) 87 H 42-75 % Lymphocytes (%) (Auto) 5 L 12-44 % Monocytes (%) (Auto) 7 0-12 % Eosinophils (%) (Auto) 0 0-10 % Basophils (%) (Auto) 0 0-10 % Neutrophils # (Auto) 19.4 H 1.8-7.8 10^3/uL Lymphocytes # (Auto) 1.1 1.0-4.0 10^3/uL Monocytes # (Auto) 1.5 H 0.0-1.0 10^3/uL Eosinophils # (Auto) 0.0 0.0-0.3 10^3/uL Basophils # (Auto) 0.1 0.0-0.1 10^3/uL Immature Granulocyte # (Auto) 0.1 0.0-0.1 10^3/uL Sodium Level 143 135-145 MMOL/L Potassium Level 3.8 3.6-5.0 MMOL/L Chloride Level 103 98-107 MMOL/L Carbon Dioxide Level 27 21-32 MMOL/L Anion Gap 13 5-14 MMOL/L Blood Urea Nitrogen 39 H 7-18 MG/DL Creatinine 1.68 H 0.60-1.30 MG/DL Estimat Glomerular Filtration Rate 40 BUN/Creatinine Ratio 23 Glucose Level 97 70-105 MG/DL Calcium Level 8.2 L 8.5-10.1 MG/DL Corrected Calcium 9.9 8.5-10.1 MG/DL Phosphorus Level 3.8 2.3-4.7 MG/DL Magnesium Level 1.8 1.6-2.4 MG/DL Total Bilirubin 0.9 0.1-1.0 MG/DL Aspartate Amino Transf (AST/SGOT) 18 5-34 U/L Alanine Aminotransferase (ALT/SGPT) 13 0-55 U/L Alkaline Phosphatase 200 H 40-136 U/L Total Protein 5.2 L 6.4-8.2 GM/DL Albumin 1.9 L 3.2-4.5 GM/DL Diagnosis/Problems Diagnosis/Problems (1) Acute on chronic heart failure with preserved ejection fraction (HFpEF) Assessment & Plan: He seems to be breathing more comfortably over the past 2-3 days. However, he has bilateral pleural effusions and peripheral edema. When he was on intravenous furosemide, his creatinine level jumped and then he received intravenous fluids. He may be developing cardiorenal syndrome. I resumed IV furosemide but just once a day. We will need to watch his renal function closely. I will obtain a follow-up chest x-ray today. (2) Persistent atrial fibrillation Assessment & Plan: He remains in atrial fibrillation. His heart rates have been difficult to control because he has not been tolerating metoprolol due to low blood pressures. I did start him on digoxin but given his kidney disease, we will need to be careful with this medication. I do not feel that he can undergo a cardioversion because I am concerned he could have left atrial thrombus since he was probably not absorbing his Xarelto adequately due to poor oral intake prior to admission. I did start him on apixaban but since he is not swallowing pills, I will change him back over to enoxaparin. (3) Troponin level elevated Assessment & Plan: This was most likely a type II non-ST elevation myocardial infarction due to persistent tachycardia from the atrial fibrillation and decompensated heart failure. (4) Acute kidney injury superimposed on chronic kidney disease Assessment & Plan: This seems to have stabilized. I have resumed intravenous furosemide but just once daily. His renal function seems to be stable. (5) Liver mass Assessment & Plan: This is a new finding in this patient. Evaluation is in progress. This may represent metastatic disease of unknown primary. (6) Gangrene of toe of right foot Assessment & Plan: Given his persistent atrial fibrillation and the fact that he does not have any significant peripheral arterial disease of the right lower extremity, this raises a concern for an embolic event. Alternatively, he could have more proximal aortoiliac disease. He is not presently a good candidate for peripheral angiography or CT angiography due to his poor renal function. He had a right transmetatarsal amputation during this admission. (7) Deep vein thrombosis, upper right extremity Assessment & Plan: He was initially on enoxaparin but I have changed this over to apixaban. As above, since he is not taking oral medication, I have changed his apixaban over to enoxaparin. (8) Primary hypertension Assessment & Plan: I have started him on metoprolol to help with rate control for the atrial fibrillation. His blood pressure have been low at times and metoprolol has been intermittently held as outlined above (9) Pulmonary hypertension Assessment & Plan: He has persistently elevated pulmonary artery pressure of unclear etiology. I suspect this may be multifactorial in part due to the chronic heart failure. This will need to be followed longitudinally. (10) Dysphagia Assessment & Plan: The surgeon wants to hold off on upper endoscopy until he is more medically stable. In light of the liver masses, he now may need an upper and lower endoscopy for further evaluation. (11) Status post transmetatarsal amputation of right foot Assessment & Plan: As above. Surgery is following. JUAN ANTONIO HILL JR, MD Aug 25, 2021 09:26
[2021-08-25] MEDS ORDERED: ENOXAPARIN 80 MG/0.8 ML (LOVENOX) SYR SC SCH (09:30)
--- NOTE | 2021-08-25 09:47 | Diagnostic Imaging Report ---
Indication: Congestive failure Compared: 08/23/2021 Findings: Bilateral pleural effusions greater left, unchanged. Heart size upper limits but not obviously changed. Vascular congestion and perihilar edema unchanged. No pneumothorax. Impression: No substantial change in bilateral pleural-parenchymal opacities and congestion. Dictated by: Dictated on workstation # [id number]
--- NOTE | 2021-08-25 12:46 | Tele-ICU Progress Note ---
Subjective Date Seen by a Provider: Aug 25, 2021 Time Seen by a Provider: 11:03 Sepsis Event Evaluation Height, Weight, BMI Height: '" Weight: lbs. oz. kg; 23.44 BMI Method: Focused Exam Lactate Level 08/23/21 17:40: Lactic Acid Level 2.43*H 08/23/21 21:07: Lactic Acid Level 1.63 Exam Exam Patient acknowledged, consented, and participated in this virtual visit which was conducted using real time audio/video Vital Signs Date Time Temp Pulse Resp B/P (MAP) Pulse Ox O2 Delivery O2 Flow Rate FiO2 08/25/21 12:31 36.9 08/25/21 11:16 97 High Flow N/C 4.00 08/25/21 11:00 91 11 109/66 91 High Flow N/C 5.00 08/25/21 10:00 106 13 109/64 98 High Flow N/C 5.00 08/25/21 09:00 57 10 103/61 100 High Flow N/C 5.00 08/25/21 08:00 97 94/52 93 High Flow N/C 5.00 08/25/21 07:41 97 High Flow N/C 4.00 08/25/21 07:38 36.8 08/25/21 07:00 117 08/25/21 07:00 124 102/83 90 High Flow N/C 5.00 08/25/21 06:00 105 15 95/66 98 High Flow N/C 5.00 08/25/21 05:00 104 15 105/53 97 High Flow N/C 5.00 08/25/21 04:00 High Flow N/C 5.00 08/25/21 04:00 95 26 79/54 97 High Flow N/C 5.00 08/25/21 03:00 97 27 107/54 94 High Flow N/C 5.00 08/25/21 02:00 98 18 117/68 96 High Flow N/C 5.00 08/25/21 01:00 108 08/25/21 01:00 98 17 119/71 99 High Flow N/C 5.00 08/25/21 00:39 36.2 08/25/21 00:00 98 39 109/62 94 High Flow N/C 5.00 08/25/21 00:00 High Flow N/C 5.00 08/24/21 23:00 85 16 117/74 95 High Flow N/C 5.00 08/24/21 22:21 95 High Flow N/C 4.00 08/24/21 22:00 85 16 97/60 95 High Flow N/C 5.00 08/24/21 21:00 92 102/69 95 High Flow N/C 5.00 08/24/21 20:00 High Flow N/C 5.00 08/24/21 20:00 93 16 82/52 High Flow N/C 5.00 08/24/21 19:55 36.4 08/24/21 19:04 94 High Flow N/C 4.00 08/24/21 19:00 121 08/24/21 19:00 100 16 103/81 94 High Flow N/C 5.00 08/24/21 19:00 High Flow N/C 5.00 08/24/21 18:00 102 27 110/74 93 High Flow N/C 6.00 08/24/21 17:00 90 18 119/63 95 High Flow N/C 6.00 08/24/21 16:00 36.5 08/24/21 16:00 Nasal Cannula 6.00 08/24/21 16:00 105 16 102/56 96 High Flow N/C 6.00 08/24/21 15:00 111 25 120/59 96 High Flow N/C 6.00 08/24/21 14:00 103 111/69 94 High Flow N/C 6.00 08/24/21 13:00 93 28 91/51 98 High Flow N/C 6.00 08/24/21 12:53 95 I & O 08/25/21 07:00 Intake Total 150 ml Output Total 1050 ml Balance -900 ml Height & Weight Height: '" Weight: lbs. oz. kg; 23.44 BMI Method: General Appearance: No Apparent Distress, Anxious, Chronically ill, Thin HEENT: PERRL/EOMI, Normal ENT Inspection Neck: Non Tender, Supple Respiratory: Normal Breath Sounds, No Accessory Muscle Use, No Respiratory Distress, Other (HFNC in appropriate position) Cardiovascular: Irregularly Irregular, Other (UE and LE edema) Capillary Refill: Less Than 3 Seconds Peripheral Pulses: 2+ Radial Pulses (R), 2+ Radial Pulses (L) Gastrointestinal: normal bowel sounds, non tender, soft Extremity: Normal Capillary Refill, No Calf Tenderness, Other (Bandage on right foot, no discharge seen through dressing) Neurologic/Psychiatric: Alert, Other (Oriented x 1) Skin: Normal Color, Warm/Dry (cervical or posterior auricular) Lymphatic: No Adenopathy Results Lab Laboratory Tests 08/23/21 17:40 08/24/21 05:55 08/25/21 04:14 Assessment/Plan Assessment/Plan (Tele-ICU Physician , Progress Note ) Available chart/ vitals / labs / Images reviewed Video assessment done using teleICU camera, rest of exam as per RN Discussed with RN , EXAM PER RN Events overnight : paniack attach this am Afebrile FiO2 - vt I/O = Drips: Pressors: , hemodynamically stable Consultants: Hospital course: 08/23 - COVID vapotherm 60%/30L A/P AHRF / ARDS due to severe COVID19 -vapotherm 65 %/30L -prone position if able - conservative fluid strategy (aim for even or negative fluid balance RYIL-Npqwrpknkup-0/COVID-19 PNA ( Symptom onset ~"month " DX unvaccinted --Dexamethasone -Hypercoagulable state , DDIMER= 0.7 on -> lovenox ppx dose , follow D dimer Monitor for superimposed bact PNA -PCT negative , ceftriaxone and z-max 08/22 JOSE - mild monitor Hyperglycemia / Diabetes Mellitus - ISS , close f/up on steroids ALYSE , suspected obesity Lines : mid line 08/25 (Central Line Necessity Reviewed) Quiles: void OG: Nutrition: po Analgesia: Anxiety/ delirium xanax VTE Prophylaxis: serafin 40 Stress Ulcer Prophylaxis: po Plans in collaboration with bedside consultants and IM MDs. Discussed with RN to reach out if any questions or concerns A total of 31 minutes of critical care time was devoted to this patient today, required to treat and/or prevent further deterioration of critical care condition ( as above) . SASKIA ALMAGUER MD Aug 25, 2021 12:46
[2021-08-26] MEDS: RT-ALBUTEROL/IPRATROPIUM 3 ML (DUONEB) VIAL INH SCH ×4 (03:13→15:39)
[2021-08-26] MEDS: D5 LR IV SOLUTION 1,000 ML IV SCH ×2 (04:01→08:16)
[2021-08-26 06:08] LABS: BASOPHILS % (AUTO) 0 % (0-10); EOSINOPHILS % (AUTO) 0 % (0-10); HEMATOCRIT 41 % (40-54); HEMOGLOBIN 12.3 g/dL (13.3-17.7); LYMPHOCYTES # (AUTO) 1.4 10^3/uL (1.0-4.0); LYMPHOCYTES % (AUTO) 6 % (12-44); MEAN CORPUSCULAR HEMOGLOBIN 26 pg (25-34); MEAN CORPUSCULAR HGB CONC 30 g/dL (32-36); MEAN CORPUSCULAR VOLUME 86 fL (80-99); MEAN PLATELET VOLUME 10.9 fL (9.0-12.2); MONOCYTES # (AUTO) 1.5 10^3/uL (0.0-1.0); MONOCYTES % (AUTO) 7 % (0-12); NEUTROPHILS # (AUTO) 18.8 10^3/uL (1.8-7.8); NEUTROPHILS % (AUTO) 86 % (42-75); PLATELET COUNT 142 10^3/uL (130-400); WHITE BLOOD COUNT 21.8 10^3/uL (4.3-11.0)
[2021-08-26 06:32] LABS: ALBUMIN 1.9 GM/DL (3.2-4.5); BILIRUBIN,TOTAL 0.8 MG/DL (0.1-1.0); CALCIUM 8.4 MG/DL (8.5-10.1); CREATININE SERUM 1.82 MG/DL (0.60-1.30); POTASSIUM 4.2 MMOL/L (3.6-5.0); TOTAL PROTEIN 5.3 GM/DL (6.4-8.2)
--- NOTE | 2021-08-26 07:35 | Progress Note - Surgery ---
JENNA HENSLEY [facility] 08/26/21 0735: Subjective Date Seen by a Provider: Aug 26, 2021 Time Seen by a Provider: 07:10 Subjective/Events-last exam POD 5, S/P Right Transmetatarsal amputation afebrile, no acute events overnight Patient oriented to self. Encounter was limited due to confusion Did voice pain as dressing was being unwrapped WBC 21.8 Focused Exam Lactate Level 08/23/21 17:40: Lactic Acid Level 2.43*H 08/23/21 21:07: Lactic Acid Level 1.63 Objective Exam Vital Signs Date Time Temp Pulse Resp B/P (MAP) Pulse Ox O2 Delivery O2 Flow Rate FiO2 08/26/21 07:14 92 High Flow N/C 7.00 08/26/21 04:05 36.2 103 18 109/80 98 High Flow N/C 7.00 08/26/21 03:21 High Flow N/C 7.00 08/26/21 03:14 95 OxyMask 8.00 08/26/21 01:00 120 08/26/21 00:30 36.5 101 14 104/63 93 High Flow N/C 7.00 Automatic Cuff 08/25/21 23:13 94 High Flow N/C 7.00 08/25/21 20:59 High Flow N/C 6.00 08/25/21 19:54 36.5 90 16 113/59 90 08/25/21 19:43 90 High Flow N/C 7.00 08/25/21 19:00 110 08/25/21 16:00 36.7 97 18 113/59 90 08/25/21 12:53 110 08/25/21 12:31 36.9 08/25/21 11:16 97 High Flow N/C 4.00 08/25/21 11:00 91 11 109/66 91 High Flow N/C 5.00 08/25/21 10:00 106 13 109/64 98 High Flow N/C 5.00 08/25/21 09:00 57 10 103/61 100 High Flow N/C 5.00 08/25/21 08:30 High Flow N/C 5.00 08/25/21 08:00 97 94/52 93 High Flow N/C 5.00 08/25/21 07:41 97 High Flow N/C 4.00 08/25/21 07:38 36.8 I & O 08/26/21 07:00 Intake Total 50 ml Output Total 600 ml Balance -550 ml Capillary Refill : Less Than 3 Seconds General Appearance: Chronically ill, Thin HEENT: PERRL/EOMI, Normal ENT Inspection Neck: Non Tender, Supple Respiratory: Lungs Clear, No Accessory Muscle Use, No Respiratory Distress, Decreased Breath Sounds Cardiovascular: Irregularly Irregular, Tachycardia Peripheral Pulses: 2+ Radial Pulses (R), 2+ Radial Pulses (L) Gastrointestinal: non tender, soft, other (slight fullness of left abdomen) Extremity: Normal Capillary Refill, Swelling (Edema in the Right upper extremity), Other (right foot with some slight edema/echymosis of skin flap.) Neurologic/Psychiatric: Alert, Disoriented (Oriented only to self) Skin: Normal Color, Ecchymosis (and edema of flap for right TMA) Lymphatic: No Adenopathy Results Lab Laboratory Tests 08/25/21 10:57: Glucometer 71 08/26/21 05:50: White Blood Count 21.8H, Red Blood Count 4.72, Hemoglobin 12.3L, Hematocrit 41, Mean Corpuscular Volume 86, Mean Corpuscular Hemoglobin 26, Mean Corpuscular Hemoglobin Concent 30L, Red Cell Distribution Width 15.3H, Platelet Count 142, Mean Platelet Volume 10.9, Immature Granulocyte % (Auto) 1, Neutrophils (%) (Auto) 86H, Lymphocytes (%) (Auto) 6L, Monocytes (%) (Auto) 7, Eosinophils (%) (Auto) 0, Basophils (%) (Auto) 0, Neutrophils # (Auto) 18.8H, Lymphocytes # (Auto) 1.4, Monocytes # (Auto) 1.5H, Eosinophils # (Auto) 0.0, Basophils # (Auto) 0.0, Immature Granulocyte # (Auto) 0.1, Sodium Level 144, Potassium Level 4.2, Chloride Level 103, Carbon Dioxide Level 25, Anion Gap 16H, Blood Urea Nitrogen 48H, Creatinine 1.82H, Estimat Glomerular Filtration Rate 37, BUN/Creatinine Ratio 26, Glucose Level 105, Calcium Level 8.4L, Corrected Calcium 10.1, Total Bilirubin 0.8, Aspartate Amino Transf (AST/SGOT) 18, Alanine Aminotransferase (ALT/SGPT) 11, Alkaline Phosphatase 230H, Total Protein 5.3L, Albumin 1.9L Microbiology 08/19/21 Blood Culture - Final, Complete Gram Negative Ramez Assessment/Plan Assessment/Plan Assessment/Plan s/p right TMA. PT with partial wt bearing. hx of dysphagia/GERD however not severe. will plan on EGD with possible dilatation once a-fib and BP more stable. Pain control. - pain control is complicated due to delirium, but appears to be adequate Continue wound care Continue antibiotics CT 06/24 showing concerns for multiple low-density masses throughout both lobes of the liver. - suspicious for metastasis - Recommend future colonoscopy/ possible biopsy liver DEREK CRABTREE DO 08/26/21 1131: Subjective Subjective/Events-last exam Patient with confusion. Does have pain to the right foot. Denies any other complaints at this time. Objective Exam General Appearance: Chronically ill, Thin HEENT: PERRL/EOMI, Normal ENT Inspection Neck: Non Tender, Supple Respiratory: No Accessory Muscle Use, No Respiratory Distress, Decreased Breath Sounds Cardiovascular: Irregularly Irregular, Tachycardia Gastrointestinal: non tender, soft, other (slight fullness of left abdomen) Extremity: Swelling (Edema in the Right upper extremity), Other (right foot with some slight edema/echymosis of skin flap.) Neurologic/Psychiatric: Alert, Disoriented (Oriented only to self) Skin: Ecchymosis (and edema of flap for right TMA) Lymphatic: No Adenopathy Assessment/Plan Assessment/Plan Assessment/Plan s/p right TMA. PT with partial wt bearing. hx of dysphagia/GERD however not severe. will plan on EGD with possible dilatation once a-fib and BP more stable. Pain control. - pain control is complicated due to delirium, but appears to be adequate Continue wound care Continue antibiotics CT 06/24 showing concerns for multiple low-density masses throughout both lobes of the liver. - suspicious for metastasis - Recommend future colonoscopy/ possible biopsy liver Supervisory-Addendum Brief Verification & Attestation Participated in pt care: history, MDM, physical Personally performed: exam, history, MDM, supervision of care Care discussed with: Medical Student Procedures: n/a Results interpretation: Verified all documentation Verification and Attestation of Medical Student E/M Service A medical student performed and documented this service in my presence. I reviewed and verified all information documented by the medical student and made modifications to such information, when appropriate. I personally performed the physical exam and medical decision making. Derek Crabtree, Aug 26, 2021,09:31 JENNA HENSLEY Aug 26, 2021 07:35 DEREK CRABTREE DO Aug 26, 2021 11:31
[2021-08-26] MEDS: FUROSEMIDE 40 MG/4 ML INJ (LASIX) IVP SCH (08:23)
[2021-08-26] MEDS: morphine INJ 4 MG/ML 1 ML (VIAL/SYRINGE) IV PRN ×3 (08:46→12:19)
--- NOTE | 2021-08-26 08:52 | Physical Therapy Progress Note ---
Therapy Progress Note Patient on hold per nursing today due to medical reasons. Will check back tomorrow. ELSIE VANEGAS PT Aug 26, 2021 08:51
[2021-08-26] MEDS: DIGOXIN 0.125 MG (LANOXIN) TAB PO SCH (09:00)
[2021-08-26] MEDS: meTOproloL SUCCINATE 50 MG (TOPROL XL) TAB PO SCH (09:00)
[2021-08-26] MEDS: SENNA W/DOCUSATE (SENOKOT S) TABLET PO SCH (09:00)
--- NOTE | 2021-08-26 09:07 | Occ Therapy Progress Note ---
Therapy Progress Note OT has received cancellation orders for pt due to transferring from ICU to Cardiac StepDown. Checking with nrsg, nrsg stated that pt has declined and is not responsive. Per nrsg request OT will follow cancellation orders. Pt will need new orders if becomes medically stable and able to actively participate in skilled therapy. JP KELLY Aug 26, 2021 09:06
[2021-08-26] MEDS: APIXABAN 5 MG (ELIQUIS) TABLET PO SCH (09:36)
--- NOTE | 2021-08-26 09:36 | Cardiology Progress Note ---
Progress Note-Cardiology Events since last exam Date Seen by Provider: Aug 26, 2021 Time Seen by Provider: 09:30 Events since last exam I am following him due to heart failure. He was moved from the ICU to cardiac stepdown yesterday. He is more confused this morning. Yesterday he knew he was in [place] but today he thinks he is in [place]. He denies any specific complaints. He denies chest discomfort, dyspnea, palpitations, or syncope. However, his answers may not be reliable due to his confusion. Certain portions of this document may have been dictated utilizing voice recognition technology. Inherent to this technology, typographical and grammatical errors may exist. As much as I am diligent to identify and correct these mistakes, some errors may remain in the document. Vitals Last set of Vitals Signs Vital Signs 08/23/21 08/26/21 09:34 08:00 Temp 36.4 Pulse 114 Resp 26 B/P (MAP) 104/83 Pulse Ox 94 O2 Delivery High Flow N/C O2 Flow Rate 7.00 FiO2 28 Labs Labs Laboratory Tests 08/26/21 05:50 Exam Vital Signs Vital Signs Date Time Temp Pulse Resp B/P (MAP) Pulse Ox O2 Delivery O2 Flow Rate FiO2 08/26/21 08:00 36.4 114 26 104/83 94 High Flow N/C 7.00 08/23/21 09:34 28 Physical Exam General: Somnolent but easily arousable. No acute distress. Eye: No xanthelasma. HENT: Normocephalic. Neck: Jugular venous pressure does not appear elevated. Respiratory: Lungs are clear to auscultation but with decreased breath sounds at the bases bilaterally. Respirations are non-labored. Breath sounds are equal. Symmetrical chest wall expansion. Cardiovascular: Irregularly irregular rhythm. No murmur. No gallop. 1-2+ bilateral pretibial edema. Right foot is bandaged. Gastrointestinal: Soft. Normal bowel sounds. Skin: Warm. Dry. Neurologic: Alert and oriented to person only but does know he is in a hospital. Cranial nerves 3-11 grossly intact. Psychiatric: Confused. Labs Laboratory Tests Test 08/25/21 10:57 08/26/21 05:50 Range/Units Glucometer 71 70-110 MG/DL White Blood Count 21.8 H 4.3-11.0 10^3/uL Red Blood Count 4.72 4.30-5.52 10^6/uL Hemoglobin 12.3 L 13.3-17.7 g/dL Hematocrit 41 40-54 % Mean Corpuscular Volume 86 80-99 fL Mean Corpuscular Hemoglobin 26 25-34 pg Mean Corpuscular Hemoglobin Concent 30 L 32-36 g/dL Red Cell Distribution Width 15.3 H 10.0-14.5 % Platelet Count 142 130-400 10^3/uL Mean Platelet Volume 10.9 9.0-12.2 fL Immature Granulocyte % (Auto) 1 % Neutrophils (%) (Auto) 86 H 42-75 % Lymphocytes (%) (Auto) 6 L 12-44 % Monocytes (%) (Auto) 7 0-12 % Eosinophils (%) (Auto) 0 0-10 % Basophils (%) (Auto) 0 0-10 % Neutrophils # (Auto) 18.8 H 1.8-7.8 10^3/uL Lymphocytes # (Auto) 1.4 1.0-4.0 10^3/uL Monocytes # (Auto) 1.5 H 0.0-1.0 10^3/uL Eosinophils # (Auto) 0.0 0.0-0.3 10^3/uL Basophils # (Auto) 0.0 0.0-0.1 10^3/uL Immature Granulocyte # (Auto) 0.1 0.0-0.1 10^3/uL Sodium Level 144 135-145 MMOL/L Potassium Level 4.2 3.6-5.0 MMOL/L Chloride Level 103 98-107 MMOL/L Carbon Dioxide Level 25 21-32 MMOL/L Anion Gap 16 H 5-14 MMOL/L Blood Urea Nitrogen 48 H 7-18 MG/DL Creatinine 1.82 H 0.60-1.30 MG/DL Estimat Glomerular Filtration Rate 37 BUN/Creatinine Ratio 26 Glucose Level 105 70-105 MG/DL Calcium Level 8.4 L 8.5-10.1 MG/DL Corrected Calcium 10.1 8.5-10.1 MG/DL Total Bilirubin 0.8 0.1-1.0 MG/DL Aspartate Amino Transf (AST/SGOT) 18 5-34 U/L Alanine Aminotransferase (ALT/SGPT) 11 0-55 U/L Alkaline Phosphatase 230 H 40-136 U/L Total Protein 5.3 L 6.4-8.2 GM/DL Albumin 1.9 L 3.2-4.5 GM/DL Diagnosis/Problems Diagnosis/Problems (1) Acute on chronic heart failure with preserved ejection fraction (HFpEF) Assessment & Plan: He was breathing more comfortably over the past 2-3 days but now his oxygenation has worsened. Some of this may be related to altered mental status. However, he has bilateral pleural effusions and peripheral edema. When he was on intravenous furosemide, his creatinine level jumped and then he received intravenous fluids. He may be developing cardiorenal syndrome. I resumed IV furosemide but just once a day. We will need to watch his renal function closely. His renal function is worse again today. We may need to again stop furosemide if his renal function continues to worsen. I will obtain a follow-up chest x-ray today. I will order follow-up blood gas. (2) Persistent atrial fibrillation Assessment & Plan: He remains in atrial fibrillation. His heart rates have been difficult to control because he has not been tolerating metoprolol due to low blood pressures. I did start him on digoxin but given his kidney disease, we will need to be careful with this medication. I do not feel that he can undergo a cardioversion because I am concerned he could have left atrial thrombus since he was probably not absorbing his Xarelto adequately due to poor oral intake prior to admission. I did start him on apixaban but since he is not swallowing pills, I will change him back over to enoxaparin. (3) Troponin level elevated Assessment & Plan: This was most likely a type II non-ST elevation myocardial infarction due to persistent tachycardia from the atrial fibrillation and decompensated heart failure. (4) Acute kidney injury superimposed on chronic kidney disease Assessment & Plan: This had seemed to have stabilized but is worse today. I have resumed intravenous furosemide but just once daily. As above (5) Liver mass Assessment & Plan: This is a new finding in this patient. Evaluation is in progress. This may represent metastatic disease of unknown primary. (6) Gangrene of toe of right foot Assessment & Plan: Given his persistent atrial fibrillation and the fact that he does not have any significant peripheral arterial disease of the right lower extremity, this raises a concern for an embolic event. Alternatively, he could have more proximal aortoiliac disease. He is not presently a good candidate for peripheral angiography or CT angiography due to his poor renal function. He had a right transmetatarsal amputation during this admission. (7) Deep vein thrombosis, upper right extremity Assessment & Plan: He was initially on enoxaparin but I have changed this over to apixaban but then he stopped swallowing pills so I had change this back to enoxaparin. However, later in the morning on 08/25, and the nurse was able to get him to swallow pills and to change the enoxaparin back to apixaban. (8) Primary hypertension Assessment & Plan: I have started him on metoprolol to help with rate control for the atrial fibrillation. His blood pressure have been low at times and metoprolol has been intermittently held as outlined above (9) Pulmonary hypertension Assessment & Plan: He has persistently elevated pulmonary artery pressure of unclear etiology. I suspect this may be multifactorial in part due to the chronic heart failure. This will need to be followed longitudinally. (10) Dysphagia Assessment & Plan: The surgeon wants to hold off on upper endoscopy until he is more medically stable. In light of the liver masses, he now may need an upper and lower endoscopy for further evaluation. (11) Status post transmetatarsal amputation of right foot Assessment & Plan: As above. Surgery is following. JUAN ANTONIO HILL JR, MD Aug 26, 2021 09:36
--- NOTE | 2021-08-26 10:13 | Diagnostic Imaging Report ---
INDICATION: CHF. TIME OF EXAM: 10:08 AM Correlation is made with prior chest one day earlier. There has been interval development of complete opacification of the left hemithorax, likely owing to a large left effusion. There is some infiltrate in the right base as well central congestion. Left central line remains in place. No pneumothorax is seen. IMPRESSION: Development of complete opacities left hemithorax consistent with enlarging left effusion and atelectasis. Dictated by: Dictated on workstation # [id number]
[2021-08-26 10:27] LABS: ABG BASE EXCESS 4.3 MMOL/L (-2.5-2.5); ABG OXYGEN SATURATION 88 % (94-100); ABG PCO2 51 MMHG (35-45); ABG PH 7.37 (7.37-7.43); ABG PO2 61 MMHG (79-93); ABG TCO2 30.9 MMOL/L (21.0-31.0)
[2021-08-26 10:34] LABS: ALLENS TEST YES-POS; INSPIRED O2 15; PATIENT TEMP 36.5; VENTILATOR NO
[2021-08-26] MEDS ORDERED: morphine INJ 4 MG/ML 1 ML (VIAL/SYRINGE) IV PRN ×2 (14:00→16:00)
--- NOTE | 2021-08-26 15:08 | Progress Note ---
ALISTAIR HILL 08/26/21 1508: Progress Note Patient is a 76 year old male who presented to the [facility] ER on 08/19/2021 with complaints of SOB. Patient was found to have atrial fibrillation with rapid ventricular response and bilateral pulmonary opacities. Patient was also found to have dry gangrene of the right foot. Patient was direct admitted to [facility] ICU on 08/19/2021. Patient was started on IV fluids, breathing treatments, pain medications, cefepime and vancomycin, and oxygen treatment. Patient also had consults placed for Cardiology and General Surgery. On 08/20, Dr. Ford, General Surgery, determined patient would need either an amputation of his right foot, but first wanted to have a doppler study to determine how much he would need to amputate. Dr. Armando Ayers, Cardiology, found out the patient had been having intermittent swelling of the right arm and severe weakness. He did not seek medical care for either of these. Dr. Armando Ayers performed an echocardiogram on 08/20. Initially Cardiology's plan was to start on sotalol and do cardioversion. However, there was concern that perhaps the atrial fibrillation had caused an embolic event to the right foot and that it may not be safe to do cardioversion due to this. Sotalol was D/C and patient would resume an antiarrhythmic medication after 30 days. Patient also had an upper extremity ultrasound which showed DVT of the right upper extremity beginning at the subclavian vein. Patient had a right lower extremity Doppler that had findings consistent with peripheral vascular disease with no focal high-grade stenosis. On 08/21 patient had a transmetatarsal amputation of the right foot performed by Dr. Ford. Patient was subsequently placed on enoxaparin. On 08/22, Patient was having bouts of hypotension, so lasix was held. Dr. Ford was considering doing an EGD for a possible esophageal stricture, but wanted to wait until atrial fibrillation and blood pressure were more stable. On 08/23, Dr. Crabtree, General Surgery, placed a central line. Patients blood pressure continuted to drop, was given a bolus of IV fluids and some digoxin. After this patients creatinine increased, and renal function was monitored closely for the rest of the patient's stay. Patient was switched from enoxaparin to abixaban. On 08/24, Patient began having altered mental status, which prompted a CT scan to be ordered. The CT scan showed evidence of potential metastasis to the liver. The patient had never had a colonoscopy. Patient was informed they may need a cancer work-up. On 08/25, Patient's status continued to decline, with worsening altered mental status. Dr. Chambers spoke with the patient's son, who will come to see him. Patient was moved to cardiac step down. Radiology was consulted to schedule a biopsy. Patient was found unable to take things by mouth. Patient was switched back to enoxaparin. Repeat chest x-ray showed no acute changes. On 08/26, Patient was found to have multiple episodes of hemoptysis overnight with continued worsening altered mental status. Dr. Chambers spoke with the son again who initially wanted to proceed with aggressive care and and stay DNR. Later on in the morning the son informed Dr. Chambers to switch patient's code status to DNR and move forward with palliative care. Patient's family had a palliative care consult and will move towards [facility] once the Patient's niece can visit. JOLANTA CHAMBERS DO 08/27/21 0524: Supervisory-Addendum Brief Verification & Attestation Participated in pt care: history, MDM, physical Personally performed: exam, history, MDM, supervision of care Care discussed with: Medical Student Procedures: n/a Results interpretation: Verified all documentation Verification and Attestation of Medical Student E/M Service A medical student performed and documented this service in my presence. I reviewed and verified all information documented by the medical student and made modifications to such information, when appropriate. I personally performed the physical exam and medical decision making. Jolanta Chambers, Aug 27, 2021,05:24 ALISTAIR HILL Aug 26, 2021 15:08 JOLANTA CHAMBERS DO Aug 27, 2021 05:24
[2021-08-26] MEDS ORDERED: RT-ALBUTEROL/IPRATROPIUM 3 ML (DUONEB) VIAL INH PRN (16:00)
[2021-08-26] MEDS ORDERED: ACETAMINOPHEN 650 MG SUPP (TYLENOL) PR PRN (16:00)
[2021-08-26] MEDS ORDERED: ONDANSETRON 4 MG/2 ML (SDV) Z0FRAN IVP PRN (16:00)
[2021-08-26] MEDS ORDERED: SALIVA STIMULANT MOUTH SPRAY (BIOTENE) 1.5 OZ MM PRN (16:00)
[2021-08-26] MEDS ORDERED: LORazepam INJ 2 MG/ML (ATIVAN) VIAL IVP PRN (16:00)
[2021-08-26] MEDS ORDERED: GLYCOPYRROLATE 0.2 MG/ML (ROBINUL) 2 ML VIAL IV PRN (16:00)
[2021-08-26] MEDS ORDERED: PROMETHAZINE INJ 25 MG/ML (PHENERGAN) AMP IVP PRN (16:00)
[2021-08-26] MEDS ORDERED: ARTIFICAL TEARS 0.4 ML UNIT DOSE (REFRESH PLUS) OU PRN (16:00)
--- NOTE | 2021-08-26 22:21 | Discharge Summary ---
Discharge Summary Hospital Course Was the Problem List Reviewed?: Yes Problems/Dx: (1) Acute on chronic heart failure with preserved ejection fraction (HFpEF) (2) Persistent atrial fibrillation (3) Troponin level elevated (4) Acute kidney injury superimposed on chronic kidney disease (5) Liver mass (6) Gangrene of toe of right foot (7) Deep vein thrombosis, upper right extremity (8) Primary hypertension (9) Pulmonary hypertension (10) Dysphagia (11) Status post transmetatarsal amputation of right foot Hospital Course Date of Admission: Aug 19, 2021 at 18:12 Admission Diagnosis : Family Physician/Provider: Date of Discharge: 08/26/21 Discharge Diagnosis: Congestive heart failure, atrial fibrillation with RVR, 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 fib with RVR. Dr. Roberts consulted. Right foot gangrene ultimately required metatarsal amputation by Dr. DUQUE. Patient became more more complicated in decline even though he was receiving aggressive ICU care. CT scan obtained by eICU showed evidence of widespread cancer likely of colon cancer or lung cancer. Multiple updates given to the son and aggressive care continued in detail it became clear he was at the end stage of his life and he was placed on comfort care and 6 hours later. Labs and Pending Lab Test: Laboratory Tests 08/26/21 05:50: White Blood Count 21.8H, Red Blood Count 4.72, Hemoglobin 12.3L, Hematocrit 41, Mean Corpuscular Volume 86, Mean Corpuscular Hemoglobin 26, Mean Corpuscular Hemoglobin Concent 30L, Red Cell Distribution Width 15.3H, Platelet Count 142, Mean Platelet Volume 10.9, Immature Granulocyte % (Auto) 1, Neutrophils (%) (Auto) 86H, Lymphocytes (%) (Auto) 6L, Monocytes (%) (Auto) 7, Eosinophils (%) (Auto) 0, Basophils (%) (Auto) 0, Neutrophils # (Auto) 18.8H, Lymphocytes # (Auto) 1.4, Monocytes # (Auto) 1.5H, Eosinophils # (Auto) 0.0, Basophils # (Auto) 0.0, Immature Granulocyte # (Auto) 0.1, Sodium Level 144, Potassium Level 4.2, Chloride Level 103, Carbon Dioxide Level 25, Anion Gap 16H, Blood Urea Nitrogen 48H, Creatinine 1.82H, Estimat Glomerular Filtration Rate 37, BUN/Creatinine Ratio 26, Glucose Level 105, Calcium Level 8.4L, Corrected Calcium 10.1, Total Bilirubin 0.8, Aspartate Amino Transf (AST/SGOT) 18, Alanine Aminotransferase (ALT/SGPT) 11, Alkaline Phosphatase 230H, Total Protein 5.3L, Albumin 1.9L 08/26/21 10:21: Blood Gas Puncture Site LT BRACHIAL, Blood Gas Patient Temperature 36.5, Arterial Blood pH 7.37, Arterial Blood Partial Pressure CO2 51H, Arterial Blood Partial Pressure O2 61L, Arterial Blood HCO3 29H, Arterial Blood Total CO2 30.9, Arterial Blood Oxygen Saturation 88L, Arterial Blood Base Excess 4.3H, Hardik Test YES-POS, Blood Gas Ventilator Setting NO, Blood Gas Inspired Oxygen 15 Microbiology 08/19/21 Blood Culture - Final, Complete Gram Negative Ramez Home Meds Active Reported Aspirin EC (Aspirin) 325 Mg Tablet.dr 650 Mg PO Q6H PRN Ibuprofen 200 Mg Tablet 400 Mg PO Q8H PRN Cardizem Cd (Diltiazem HCl) 240 Mg Cap.er.24h 240 Mg PO DAILY Furosemide 40 Mg Tablet 40 Mg PO DAILY LAST FILLED 06-20-2021 #30/ DAY SUPPLY Xarelto (Rivaroxaban) 20 Mg Tablet 20 Mg PO 1200 W/MEAL Assessment/Pt Instructions Pt having significant decline ABG shows hypercapnia and hypoxia Pt near comatose Three phone calls to the son ensued and finally obtained DNR and will initiate comfort care when family is at the bedside Overall pt will be unable to have liver biopsy to confirm tissue diagnosis of cancer or get an EGD WBC count remains high at 21.8 Discharge Planning: <30 minutes discharge planning Discharge Physical Examination Vital Signs Vital Signs Date Time Temp Pulse Resp B/P (MAP) Pulse Ox O2 Delivery O2 Flow Rate FiO2 08/26/21 13:00 117 08/26/21 11:51 36.4 16 80/60 92 High Flow N/C 15.00 08/23/21 09:34 28 Allergies: Coded Allergies: No Allergy Information Available (Unverified , 06/20/21) Discharge Summary Date of Admission Aug 19, 2021 at 18:12 Date of Discharge Aug 26, 2021 at 18:26 Admission Diagnosis Assessment: Acute hypoxic respiratory failure Sepsis Atrial fibrillation with rapid ventricular response Right foot dry gangrene with cellulitis Frail status Congestive heart failure Right upper extremity DVT Plan: MARISA Cardiology consult IV antibiotics Comfort Measures/ End of Life Care: Comfort Measures Discharge Diagnosis Assessment: A.fib with RVR -Cardilogy consulted -Diltiazem being given along with digoxin today -Has received Echo and peripheral US -MARISA unsuccessful due to inability to progress scope consulted Dr. DUQUE for esophageal stricture -Continue to monitor Sepsis -ABX -monitor pt closely Right arm DVT -Anticoagulation -Continue to monitor Gangrene/Osteomyelitis -Surgery consulted -Continuing abx -Status post right metatarsal amputation Hypokalemia CT scan shows liver metastasis presumed colon cancer or lung cancer Plan: Surgery today A. fib and congestive heart failure cardiology manages 08/22/2021: Supportive care Anticoagulation Appreciate general surgery 08/23/2021: Central line Anticoagulation Rate control 08/24/2021: Cancer work-up Poor prognosis Will need pastoral care for advanced directive talk 08/25/2021: Transfer to cardiac stepdown unit Needs DNR due to widespread cancer appearance on CT Liver biopsy? (1) Acute on chronic heart failure with preserved ejection fraction (HFpEF) Assessment & Plan: He was breathing more comfortably over the past 2-3 days but now his oxygenation has worsened. Some of this may be related to altered mental status. However, he has bilateral pleural effusions and peripheral edema. When he was on intravenous furosemide, his creatinine level jumped and then he received intravenous fluids. He may be developing cardiorenal syndrome. I resumed IV furosemide but just once a day. We will need to watch his renal function closely. His renal function is worse again today. We may need to aga in stop furosemide if his renal function continues to worsen. I will obtain a follow-up chest x-ray today. I will order follow-up blood gas. (2) Persistent atrial fibrillation Assessment & Plan: He remains in atrial fibrillation. His heart rates have been difficult to control because he has not been tolerating metoprolol due to low blood pressures. I did start him on digoxin but given his kidney disease, we will need to be careful with this medication. I do not feel that he can undergo a cardioversion because I am concerned he could have left atrial thrombus since he was probably not absorbing his Xarelto adequately due to poor oral intake prior to admission. I did start him on apixaban but since he is not swallowing pills, I will change him back over to enoxaparin. (3) Troponin level elevated Assessment & Plan: This was most likely a type II non-ST elevation myocardial infarction due to persistent tachycardia from the atrial fibrillation and decompensated heart failure. (4) Acute kidney injury superimposed on chronic kidney disease Assessment & Plan: This had seemed to have stabilized but is worse today. I have resumed intravenous furosemide but just once daily. As above (5) Liver mass Assessment & Plan: This is a new finding in this patient. Evaluation is in progress. This may represent metastatic disease of unknown primary. (6) Gangrene of toe of right foot Assessment & Plan: Given his persistent atrial fibrillation and the fact that he does not have any significant peripheral arterial disease of the right lower extremity, this raises a concern for an embolic event. Alternatively, he could have more proximal aortoiliac disease. He is not presently a good candidate for peripheral angiography or CT angiography due to his poor renal function. He had a right transmetatarsal amputation during this admission. (7) Deep vein thrombosis, upper right extremity Assessment & Plan: He was initially on enoxaparin but I have changed this over to apixaban but then he stopped swallowing pills so I had change this back to enoxaparin. However, later in the morning on 08/25, and the nurse was able to get him to swallow pills and to change the enoxaparin back to apixaban. (8) Primary hypertension Assessment & Plan: I have started him on metoprolol to help with rate control for the atrial fibrillation. His blood pressure have been low at times and metoprolol has been intermittently held as outlined above (9) Pulmonary hypertension Assessment & Plan: He has persistently elevated pulmonary artery pressure of unclear etiology. I suspect this may be multifactorial in part due to the chronic heart failure. This will need to be followed longitudinally. (10) Dysphagia Assessment & Plan: The surgeon wants to hold off on upper endoscopy until he is more medically stable. In light of the liver masses, he now may need an upper and lower endoscopy for further evaluation. (11) Status post transmetatarsal amputation of right foot Assessment & Plan: As above. Surgery is following. VLAD CHAMBERS DO Aug 26, 2021 22:21
== END 2021-08-26 18:26 | disposition expired | DRG 853 ==
LOC: ICU 18:12 → CSD 08-25 11:58
PROVIDERS: ADMIT Internal Medicine; ATTEND Internal Medicine
PROC: 0Y6N0ZB Detachment at Left Foot, Partial 2nd Ray, Open Approach (ICD-10-PCS; 2021-08-21)
PROC: 0Y6N0ZC Detachment at Left Foot, Partial 3rd Ray, Open Approach (ICD-10-PCS; 2021-08-21)
PROC: 0Y6N0ZD Detachment at Left Foot, Partial 4th Ray, Open Approach (ICD-10-PCS; 2021-08-21)
PROC: 0Y6N0ZF Detachment at Left Foot, Partial 5th Ray, Open Approach (ICD-10-PCS; 2021-08-21)
PROC: 3E0T3BZ Introduction of Anesthetic Agent into Peripheral Nerves and Plexi, Percutaneous Approach (ICD-10-PCS; 2021-08-21)
PROC: 0Y6N0Z9 Detachment at Left Foot, Partial 1st Ray, Open Approach (ICD-10-PCS; principal; 2021-08-21 12:52)
PROC: 02HV33Z Insertion of Infusion Device into Superior Vena Cava, Percutaneous Approach (ICD-10-PCS; 2021-08-23)
DX: A41.9 Sepsis, unspecified organism (principal); U07.1 COVID-19; J15.9 Unspecified bacterial pneumonia; I50.33 Acute on chronic diastolic (congestive) heart failure; I21.A1 Myocardial infarction type 2; J80 Acute respiratory distress syndrome; I96 Gangrene, not elsewhere classified; I82.621 Acute embolism and thrombosis of deep veins of right upper extremity; M86.9 Osteomyelitis, unspecified; I82.622 Acute embolism and thrombosis of deep veins of left upper extremity; N17.9 Acute kidney failure, unspecified; I48.19 Other persistent atrial fibrillation; I13.0 Hypertensive heart and chronic kidney disease with heart failure and stage 1 through stage 4 chronic kidney disease, or unspecified chronic kidney disease; C34.90 Malignant neoplasm of unspecified part of unspecified bronchus or lung; C18.9 Malignant neoplasm of colon, unspecified; C79.9 Secondary malignant neoplasm of unspecified site; R54 Age-related physical debility; Z87.891 Personal history of nicotine dependence; Z95.5 Presence of coronary angioplasty implant and graft; J44.9 Chronic obstructive pulmonary disease, unspecified; Z66 Do not resuscitate; Z51.5 Encounter for palliative care; E78.00 Pure hypercholesterolemia, unspecified; E87.6 Hypokalemia; I25.10 Atherosclerotic heart disease of native coronary artery without angina pectoris; E11.65 Type 2 diabetes mellitus with hyperglycemia; E11.51 Type 2 diabetes mellitus with diabetic peripheral angiopathy without gangrene; G47.33 Obstructive sleep apnea (adult) (pediatric); E66.9 Obesity, unspecified; K21.9 Gastro-esophageal reflux disease without esophagitis; N18.9 Chronic kidney disease, unspecified; R16.0 Hepatomegaly, not elsewhere classified; I27.20 Pulmonary hypertension, unspecified; E78.2 Mixed hyperlipidemia; I34.0 Nonrheumatic mitral (valve) insufficiency
CPT/HCPCS: 36415; 36600; 70450; 71045; 73620; 74176; 80048; 80053; 80202; 81000; 82140; 82378; 82805; 82947; 83605; 83735; 84100; 84145; 84443; 84484; 85007; 85025; 85027; 86301; 87040; 87077; 87186; 93005; 93306; 93926; 93970; 94640